=== PATIENT | female | born 1950 | race Caucasian/White ===

== ENCOUNTER 2017-12-06 09:00 | Day surgery (SDC) | payer MEDICARE, SELFPAY ==
[2017-12-06] VITALS (12 sets, daily range): BP systolic 106–161; BP diastolic 49–68; PULSE 55–95; RESP 14–18; TEMP 36.3–36.7; O2SAT 93–100; BMI 29.2
[2017-12-06 09:42] LABS: POC Glucose,Bedside 198 mg/dL
--- NOTE | 2017-12-06 10:16 | [facility].SCOPE ---
- Procedure: Date: 12/06/17 Procedure Performed:: Total colonoscopy to ileum with biopsies Indications:: Patient is a 67-year-old white female referred by Dr. Jefe Ruiz for colonoscopy. She had undergone colonoscopy [address] Olea in 1996. Patient describes early postprandial defecation. She states that food goes right through me . She has cramping abdominal pain. This is been present for several months. Denies any bleeding. Performing Provider:: Jaime Lindquist MD Referring Provider:: Jefe Ruiz MD Sedation:: Versed 6 mg, fentanyl 100 mcg. Procedure:: Consent was obtained and patient was taken to same-day surgery endoscopy procedure room. She was positioned in a lateral decubitus position. Adequate intravenous sedation was achieved with titration of Versed and fentanyl. Variable stiffness of the colonoscope was inserted via the anus and advanced at the C. Colonic preparation was good. Appendiceal orifice and ileocecal valve were clearly identified. Colonoscope was advanced into the terminal ileum which appeared grossly normal. Several random terminal ileum biopsies were obtained using cold biopsy forceps. Colonoscope was withdrawn through the colon with careful surveillance. She did have some degree of pandiverticulosis. Random colon biopsies were obtained differentiating right and left to rule out microscopic colitis. There was a possible extremely diminutive polyp near the rectosigmoid region. However this appeared to disappear and with repeated surveillance proximally and distally of the area no polyp could be identified. Within the rectum retroflexion was performed which revealed minor internal hemorrhoids. Colonoscope was withdrawn. Findings:: Pandiverticulosis Internal hemorrhoids Specimens:: Random colon Terminal ileum Recommendations:: Follow-up on pathology. No clear etiology for her change in bowel habits. May be functional pending pathology. Recommend repeat colonoscopy 5-10 years. Complications:: None Estimated blood obtained (mL): 3
== END 2017-12-06 10:48 | disposition home or self-care (01) ==
LOC: OUTP 09:03
PROVIDERS: Family Provider Internal Medicine Adolescent Medicine; PCP Internal Medicine; Visit Provider Surgery
PROC: 0DJD8ZZ Inspection of Lower Intestinal Tract, Via Natural or Artificial Opening Endoscopic (ICD-10-PCS; principal; 2017-12-06 09:30)
DX: K57.30 Diverticulosis of large intestine without perforation or abscess without bleeding; K64.8 Other hemorrhoids; E11.8 Type 2 diabetes mellitus with unspecified complications
CPT/HCPCS: 45380; 82962; 88305; 99152; 99153

== ENCOUNTER → 2018-02-09 09:00 | Outpatient (CLI) | payer MEDICARE, SELFPAY ==
--- NOTE | 2018-02-09 09:12 | NVE_ITS ---
Venous Exam Indications: 729.5 Pain in limb. 782.3 Edema. IMPRESSIONS 1. Normal study. 2. No evidence of deep or superficial vein thrombosis involving the right lower extremity 3. No evidence of deep or superficial vein thrombosis involving the left lower extremity Complete lower extremity venous duplex evaluation. Doppler flow study including spectral analysis, color and beebe scale imaging. Location: Vascular laboratory. Patient status: Outpatient. Tables: Venous flow and imaging: + +-------+ + Location Overall Flow properties + +-------+ + Right common femoral Patent Normal phasicity; spontaneous; normal augmentation; compressible + +-------+ + Right saphenofemoral junction Patent Compressible + +-------+ + Right profunda femoral Patent Compressible + +-------+ + Right femoral Patent Normal phasicity; spontaneous; normal augmentation; compressible; no reflux + +-------+ + Right greater saphenous Patent Normal phasicity; spontaneous; normal augmentation; compressible + +-------+ + Right popliteal Patent Normal phasicity; spontaneous; normal augmentation; compressible + +-------+ + Right posterior tibial Patent Compressible + +-------+ + Right peroneal Patent Compressible + +-------+ + Right gastrocnemius Patent Compressible + +-------+ + Right soleal Patent Compressible + +-------+ + Left common femoral Patent Normal phasicity; spontaneous; normal augmentation; compressible + +-------+ + Left saphenofemoral junction Patent Compressible + +-------+ + Left profunda femoral Patent Compressible + +-------+ + Left femoral Patent Normal phasicity; spontaneous; normal augmentation; compressible + +-------+ + Left greater saphenous Patent Normal phasicity; spontaneous; normal augmentation; compressible + +-------+ + Left popliteal Patent Normal phasicity; spontaneous; normal augmentation
== END ==
PROVIDERS: Family Provider Internal Medicine Adolescent Medicine; PCP Internal Medicine; Visit Provider Internal Medicine
DX: R60.0 Localized edema (principal); I70.223 Atherosclerosis of native arteries of extremities with rest pain, bilateral legs
CPT/HCPCS: 93970

== ENCOUNTER 2018-12-28 14:26 | Inpatient (IN) ==
[2018-12-28 14:45] LABS: Microscopic, Urine URINE MICROSCOPIC (MICROSCOPIC)
--- NOTE | 2018-12-28 14:46 | Emergency Department Note ---
ED Disposition Clinical Impression: Closed right hip fracture Disposition: Admitted As Inpatient Condition on Discharge: Good Referrals: Jefe Ruiz [Primary Care Provider] - Time of Disposition: 15:58 - Critical Care Critical Care Time: No Attestation: On 12/28/18, the high probability of a clinically significant, sudden or life threatening deterioration of the following system(s) required my full and direct attention, intervention and personal management. The time I documented below is in addition to time spent performing reported procedures but includes the following listed in this critical care notation. Medical Decision Making - Medical Records Medical records reviewed: Yes: I reviewed the patient's medical records. - Carlos Inquiry Pt receiving controlled substance: No Carlos was queried for this patient: No Vital Signs: 12/28/18 14:26 12/28/18 15:56 Temperature 97.7 F Temperature Source Oral Pulse Rate [Left Radial] 96 H 94 H Respiratory Rate 16 16 Blood Pressure [Right Arm] 148/87 H 141/77 H Blood Pressure Mean [Right Arm] 107 98 Blood Pressure Source [Right Arm] Automatic Cuff Automatic Cuff Blood Pressure Position [Right Arm] Supine Sitting 02 Sat by Pulse Oximetry 95 94 L Oxygen Delivery Method Room Air Nasal Cannula Oxygen Flow Rate (LPM) 2 - Lab Data Lab Results 12/28/18 14:30: WBC 6.5, RBC 4.67, Hgb 14.6, Hct 44.2, MCV 94.7, MCH 31.3 H, MCHC 33.1, RDW 13.0, Plt Count 201, MPV 7.5, Neut % (Auto) 55.9, Lymph % (Auto) 30.4, [place] % (Auto) 5.3, Eos % (Auto) 7.0, Baso % (Auto) 1.4, Neut # (Auto) 3.7, Lymph # (Auto) 2.0, [place] # (Auto) 0.3, Eos # (Auto) 0.5 H, Baso # (Auto) 0.1 12/28/18 14:30: Sodium 137, Potassium 4.2, Chloride 99, Carbon Dioxide 25, Anion Gap 17.2 H, BUN 29 H, Creatinine 1.19 H, Estimated Creat Clear 59, Estimated GFR 45 L, Est GFR ( Amer) 55 L, Glucose 258 H, Calcium 9.4, Total Bilirubin 0.7, AST 230 H, ALT 328 H*, Alkaline Phosphatase 137 H, Total Protein 7.6, Albumin 4.0, Globulin 3.6 H, Albumin/Globulin Ratio 1.1 12/28/18 14:30: Urine Color Yellow, Urine Appearance Clear, Urine pH 6.0, Ur Specific [place] 1.025, Urine Protein Negative, Urine Glucose (UA) Trace, Urine Ketones Negative, Urine Blood Trace-l, Urine Nitrate Negative, Urine Bilirubin Negative, Urine Urobilinogen 0.2, Ur Leukocyte Esterase Negative Result diagrams: 12/28/18 14:30 12/28/18 14:30 Orders (Tests/Meds): ED MEDICATIONS Discontinued Medications Generic Name Dose Route Start Last Admin Trade Name Freq PRN Reason Stop Dose Admin Hydromorphone HCl 0.5 mg 12/28/18 15:28 12/28/18 15:29 Dilaudid 2mg/Ml Syringe IV 12/28/18 15:29 0.5 mg ONCE ONE Administration Sodium Chloride 500 mls @ 999 mls/hr 12/28/18 14:45 12/28/18 14:48 Sod Chlor 0.9% 1000ml Bag IV 12/28/18 15:15 Not Given .Q31M KAREY Sodium Chloride 1,000 mls @ 999 mls/hr 12/28/18 14:45 12/28/18 14:46 Sod Chlor 0.9% 1000ml Bag IV 12/28/18 15:45 999 mls/hr .Q1H1M KAREY Administration Morphine Sulfate 4 mg 12/28/18 14:47 12/28/18 14:48 Morphine 4mg/Ml Syringe IV 12/28/18 14:48 4 mg ONCE ONE Administration Ondansetron HCl 4 mg 12/28/18 14:44 12/28/18 14:45 Zofran 4mg/2ml Vial IV 12/28/18 14:45 4 mg ONCE ONE Administration ORDERS Category Date Time Status Urinalysis and Microscopic Stat Lab 12/28/18 14:30 Results Fall HPI - General Chief Complaint: Fall Stated Complaint: Fall Time Seen by Provider: 12/28/18 14:43 Mode of Arrival: Family Vehicle Source of Information: Patient Limitations: Physical Limitations Description of Symptoms (Recalled from ER Triage Doc. by RN): Pt states she was walking in her daughters front door when her dog jumped on her and she fell on her right leg. c/o pain in thigh area, denies hitting her head or any other injuries at this time. - History of Present Illness HPI Narrative: severe r hip pain, thigh pain. Brought in pov with obvious fracture - Related Data Home Medications Medication Instructions Recorded Confirmed lisinopril 40 mg tablet 40 mg PO QDAY 11/25/17 12/28/18 lovastatin 20 mg tablet 20 mg PO QDAY 11/25/17 12/28/18 sitagliptin 100 mg tablet 100 mg PO QDAY 11/25/17 12/28/18 Previous Rx's Medication Instructions Recorded metoprolol tartrate 25 mg tablet 25 mg PO BID #60 tab 04/28/18 Allergies Allergy/AdvReac Type Severity Reaction Status Date / Time ciprofloxacin [CIPROFLOXACIN] Allergy Mild Verified 07/19/18 20:50 [facility] History - Hepatitis A Screen Drug use history?: No High risk sexual behaviors?: No History of sexually transmitted infection?: No Currently employed?: No Childcare worker?: No Do you have indoor plumbing?: Yes Do you have electricity?: Yes Attestation statement:: This patient has been screened for Hepatitis A risk factors. I have reviewed the patient's past medical history: Yes Medical History: Reports:: Diabetes Mellitus Type 2, Hyperlipidemia, Hypertension Denies:: Diabetes Mellitus Type 1, Internal Pacemaker, Lung Disease, Seizures Laterality Cases: Left: Other Other Surgeries: Yes: Colonoscopy. No: Pacemaker - Social History Smoking Status: Never smoker Alcohol Intake: never Alcohol Intake Frequency:: other Substance Use Type: denies use Occupational Status: retired - Psychiatric History Expresses thoughts of harming self/others: None Suicide Plan Description: No Plan Family Hx:: Cancer ROS Obtained: Yes All systems reviewed & no additional complaints - Constitutional Constitutional: Denies chills, Denies fever(s) - Eyes Eyes: Denies change in vision - ENT Ears, Nose, Mouth, and Throat: Denies neck pain - Cardiovascular Cardiovascular: Denies chest pain, Denies chest pain at rest, Denies diaphoresis, Denies dyspnea - Respiratory Respiratory: Yes system reviewed and no additional complaints, except as docu, No chest congestion, No cough - Gastrointestinal Gastrointestingal: Denies: system reviewed and no additional complaints, except as docu, abdominal pain - Musculoskeletal Musculoskeletal: Reports joint pain, Reports deformity, Reports muscle cramps, Reports muscle aches - Integumentary/Breasts Skin/Breast: Denies rash - Neurologic Neurologic: Reports system reviewed and no additional complaints, except as docu , Denies behavioral changes, Denies confusion, Denies focal weakness - Hematologic/Lymphatic Henatologic/Lymphatic: Denies easy bleeding, Denies easy bruising Physical Exam - General General appearance: alert, in no apparent distress - Head Head exam: atraumatic, normocephalic, normal inspection - Eye Eye exam: Present: normal appearance, PERRL, EOMI - ENT ENT exam: Present: normal exam, normal oropharynx, mucous membranes moist, TM's normal bilaterally, normal external ear exam - Neck Neck exam: Present: normal inspection, full ROM, trachea midline. Absent: meningismus, lymphadenopathy - Respiratory Respiratory exam: Present: normal lung sounds bilaterally. Absent: respiratory distress - Cardiovascular Cardiovascular exam: Present: regular rate, normal rhythm. Absent: JVD - Abdominal Exam Abdominal exam: Present: soft, normal bowel sounds. Absent: distention, tenderness, guarding - Extremities Exam Extremities exam: Present: tenderness, normal capillary refill, other (R hip pain, no significant hematoma, there is shortening and rotation). Absent: normal inspection, full ROM - Neurological Exam Neurological exam: Present: alert, oriented X3 - Psychiatric Psychiatric exam: Present: normal affect, normal mood - Skin Skin exam: Present: warm, dry, intact, normal color
[2018-12-28 14:49] LABS: Basophils # 0.1 K/mm3 (0-0.2); Basophils % 1.4 % (0.1-2.0); Eosinophils # 0.5 K/mm3 (0.0-0.4); Hematocrit 44.2 % (37.0-47.0); Hemoglobin 14.6 g/dL (12.2-16.2); Lymphocytes % 30.4 % (10-50); Mean Corpuscular HGB Conc 33.1 g/dL (31.8-35.4); Mean Corpuscular Hemoglobin 31.3 pg (27.0-31.2); Mean Corpuscular Volume 94.7 fl (81-99); Mean Platelet Volume 7.5 fl (7.4-10.4); Monocytes # 0.3 K/mm3 (0.1-1.0); Monocytes % 5.3 % (1.7-9.3); Neutrophils # 3.7 K/mm3 (1.8-7.8); Neutrophils % 55.9 % (37.0-80.0); Platelet Count 201 K/mm3 (142-424); Red Blood Count 4.67 M/mm3 (4.20-5.40); White Blood Count 6.5 K/mm3 (4.8-10.8)
[2018-12-28 15:01] LABS: Appearance,Urine CLEAR (Clear); Bilirubin,Urine Negative (Negative); Blood, Urine TRACE-L (Negative); Color,Urine YELLOW (Yellow); Glucose,Urine (UA) TRACE (Negative); Ketones,Urine Negative (Negative); Leukocyte Esterase,Urine Negative (Negative); Protein,Urine Negative (Negative); Specific Gravity, Urine 1.025 (1.005-1.030); Urobilinogen,Urine 0.2 EU/dl (0.2)
[2018-12-28 15:41] LABS: Albumin/Globulin Ratio 1.1 (1.1-1.8); Anion Gap 17.2 mEq/L (5-15); Bilirubin,Total 0.7 mg/dL (0.2-1.0); Calcium 9.4 mg/dL (8.5-10.1); Globulin 3.6 gm/dl (1.3-3.2); Potassium 4.2 mmoL/L (3.5-5.1); Total Protein,Serum 7.6 gm/dL (6.4-8.2)
[2018-12-28 15:59] LABS: Bacteria,Urine 1+ /lpf; RBC,Urine Occasional #/hpf (0-3); Squamous Epithelial Cell,Urine Occasional #/hpf (0-5)
[2018-12-29 06:23] LABS: Basophils # 0.1 K/mm3 (0-0.2); Basophils % 0.9 % (0.1-2.0); Eosinophils # 0.3 K/mm3 (0.0-0.4); Eosinophils % 4.5 % (0.1-12.0); Hematocrit 34.9 % (37.0-47.0); Lymphocytes # 1.7 K/mm3 (0.7-4.5); Lymphocytes % 22.8 % (10-50); Mean Corpuscular HGB Conc 32.1 g/dL (31.8-35.4); Mean Corpuscular Hemoglobin 31.2 pg (27.0-31.2); Mean Corpuscular Volume 97.2 fl (81-99); Mean Platelet Volume 7.2 fl (7.4-10.4); Monocytes # 0.6 K/mm3 (0.1-1.0); Neutrophils # 4.9 K/mm3 (1.8-7.8); Neutrophils % 63.8 % (37.0-80.0); Platelet Count 200 K/mm3 (142-424); Red Blood Count 3.59 M/mm3 (4.20-5.40); Red Cell Distribution Width 13.1 % (11.5-17.5); White Blood Count 7.6 K/mm3 (4.8-10.8)
[2018-12-29 06:31] LABS: Anion Gap 11.9 mEq/L (5-15); Potassium 4.9 mmoL/L (3.5-5.1)
[2018-12-29 07:00] LABS: Hemoglobin 11.3 g/dL (12.2-16.2)
[2018-12-29 07:16] LABS: Calcium 8.5 mg/dL (8.5-10.1)
--- NOTE | 2018-12-29 08:11 | Pharmacy Consult Notes ---
[facility] Pharmacy VTE Monitoring - Patient Demographics Admission date: 12/28/18 Report Date: 12/29/18 Time: 08:11 Allergies/Adverse Reactions: Patient Allergies ciprofloxacin [CIPROFLOXACIN] Allergy (Mild, Verified 07/19/18 20:50) Height: 1.6 m Weight: 74.049 kg Patient Problems: Current Active Problems Closed right hip fracture (Acute) - VTE Risk Labs: VTE Related Lab Results Hgb 11.3 g/dL (12.2-16.2) L D 12/29/18 06:03 Hct 34.9 % (37.0-47.0) L 12/29/18 06:03 Plt Count 200 K/mm3 (142-424) 12/29/18 06:03 BUN 35 mg/dL (7-18) H 12/29/18 06:03 Creatinine 1.56 mg/dL (0.55-1.02) H D 12/29/18 06:03 Estimated Creat Clear 41 mL/min (50-200) 12/29/18 06:03 Was VTE Risk Assessment Performed: Yes VTE Score: 4 VTE Risk Level: Low Risk Clinical Trial Participant: No - Prophylaxis VTE Prophylaxis Ordered?: Yes Types of VTE Prophylaxis: TEDS Knee High
--- NOTE | 2018-12-29 08:24 | History & Physical Report ---
*Admission Date: 12/28/18 *Chief complaint: hip fracture *History of present illness: Ms. Vann is a 68-year-old female with history of diabetes, hypertension, hyperlipidemia who presented to the ER after a fall at home. Patient states that last night she tripped over her dog at home falling down on her right side with acute onset of pain and inability to get up and bear weight. She was brought to the ER for further assessment and noticed to have a right sided comminuted intertrochanteric femur fracture. Orthopedics was consulted with plan for surgery today. Patient was admitted to medicine for further management of her chronic conditions and risk stratification prior to surgery. Patient denies no use of insulin. No chronic kidney disease. No history of stroke or heart attack. Able to perform housework and ambulate independently prior to her fall. Able to walk at least 2 flights of stairs without shortness of breath or chest pain. EKG obtained in the ER with no concern for wave abnormalities or ischemia. Denies nausea, shortness of breath, hitting her head, confusion. [facility] History I have reviewed the patient's past medical history: Yes Medical History: Reports:: Diabetes Mellitus Type 2, Hyperlipidemia, Hypertensio n Denies:: Diabetes Mellitus Type 1, Internal Pacemaker, Lung Disease, Seizures *Have you ever received a pneumonia vaccine?: No *Have you received a flu vaccine this season?: Yes Laterality Cases: Left: Other Other Surgeries: Yes: Colonoscopy. No: Pacemaker Amputation: No Fractures: No - *Social History Educational Level: Attended Grade School Smoking Status: Never smoker Alcohol Intake: never Alcohol Intake Frequency:: other Substance Use Type: denies use *Occupational Status:: disabled Housing: house Household Members: children *Travel in the last 8 weeks: None - Psychiatric History Expresses thoughts of harming self/others: None Suicide Plan Description: No Plan Family Hx:: No significant family history, Cancer Review of Systems - Review of Systems Review of systems:: pertinent systems reviewed and negative unless documented below - *Neurologic Denies behavioral changes, Denies confusion, Denies localized weakness Meds Home Medications Medication Instructions Recorded Confirmed Type lisinopril 40 mg tablet 40 mg PO DAILY 11/25/17 12/29/18 History lovastatin 20 mg tablet 20 mg PO HS 11/25/17 12/29/18 History Duloxetine HCl [Cymbalta 30mg 30 mg PO DAILY 12/29/18 12/29/18 History capsule] Allergies Allergy/AdvReac Type Severity Reaction Status Date / Time ciprofloxacin [CIPROFLOXACIN] Allergy Mild Verified 07/19/18 20:50 Exam Vital signs and Labs for Last 24 Hours: Temp Pulse Resp BP Pulse Ox 98.4 F 73 18 105/68 L 94 L 12/29/18 07:40 12/29/18 07:40 12/29/18 07:40 12/29/18 07:40 12/29/18 07:40 Laboratory Results - last 24 hr 12/28/18 14:30: WBC 6.5, RBC 4.67, Hgb 14.6, Hct 44.2, MCV 94.7, MCH 31.3 H, MCHC 33.1, RDW 13.0, Plt Count 201, MPV 7.5, Neut % (Auto) 55.9, Lymph % (Auto) 30.4, [place] % (Auto) 5.3, Eos % (Auto) 7.0, Baso % (Auto) 1.4, Neut # (Auto) 3.7, Lymph # (Auto) 2.0, [place] # (Auto) 0.3, Eos # (Auto) 0.5 H, Baso # (Auto) 0.1 12/28/18 14:30: Sodium 137, Potassium 4.2, Chloride 99, Carbon Dioxide 25, Anion Gap 17.2 H, BUN 29 H, Creatinine 1.19 H, Estimated Creat Clear 59, Estimated GFR 45 L, Est GFR ( Amer) 55 L, Glucose 258 H, Calcium 9.4, Total Bilirubin 0.7, AST 230 H, ALT 328 H*, Alkaline Phosphatase 137 H, Total Protein 7.6, Albumin 4.0, Globulin 3.6 H, Albumin/Globulin Ratio 1.1 12/28/18 14:30: Urine Color Yellow, Urine Appearance Clear, Urine pH 6.0, Ur Specific [place] 1.025, Urine Protein Negative, Urine Glucose (UA) Trace, Urine Ketones Negative, Urine Blood Trace-l, Urine Nitrate Negative, Urine Bilirubin Negative, Urine Urobilinogen 0.2, Ur Leukocyte Esterase Negative, Urine RBC Occasional, Urine WBC None, Ur Squamous Epith Cells Occasional, Urine Bacteria 1+ 12/28/18 20:08: POC Glucose 280 H 12/29/18 05:45: POC Glucose 221 H 12/29/18 06:03: WBC 7.6, RBC 3.59 L, Hgb 11.3 L D, Hct 34.9 L, MCV 97.2, MCH 31.2, MCHC 32.1, RDW 13.1, Plt Count 200, MPV 7.2 L, Neut % (Auto) 63.8, Lymph % (Auto) 22.8, [place] % (Auto) 8.0, Eos % (Auto) 4.5, Baso % (Auto) 0.9, Neut # (Auto) 4.9, Lymph # (Auto) 1.7, [place] # (Auto) 0.6, Eos # (Auto) 0.3, Baso # (Auto) 0.1 12/29/18 06:03: Sodium 136, Potassium 4.9, Chloride 103, Carbon Dioxide 26, Anion Gap 11.9, BUN 35 H, Creatinine 1.56 H D, Estimated Creat Clear 41, Estimated GFR 33 L, Est GFR ( Amer) 40 L D, Glucose 240 H, Calcium 8.5 I & O for Last 24 hours: Intake & Output 12/26/18 12/27/18 12/28/18 12/29/18 23:59 23:59 23:59 23:59 Intake Total 2170 / 2170 50 / 50 Output Total 200 / 200 Balance 1969 / 1969 50 / 50 Weight 74.049 kg 74.049 kg - *Routine HEENT Exam Head: Present: normocephalic, atraumatic Eye: Present: EOMI, PERRL ENT: Present: mucous membranes moist - *Routine Neck Exam Present: supple, full ROM. Absent: JVD - *Routine Respiratory Exam Present: CTA bilaterally. Absent: prolonged expiratory phase, rales, wheezes, crackles - *Routine Cardiovascular Exam Present: RRR, Normal S1 - *Routine Abdominal Exam Present: soft, normoactive bowel sounds. Absent: tenderness - *Routine Rectal Exam Patient deferred: visual exam - *Routine Exam Patient deferred: external exam - *Routine Extremities Exam Absent: cyanosis, clubbing, edema Comments: Neurovascularly intact in the right lower extremity, able to wiggle toes. Right leg in traction with weight attached to foot, tender to palpation along right side of upper thigh - *Routine Skin Exam Present: intact. Absent: cyanosis - *Routine Neurological Exam Present: alert, oriented X3. 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 (2) Hyperlipidemia Current visit: Yes Status: Acute Qualifiers: Hyperlipidemia type: familial hypercholesterolemia Qualified Code(s): E78.01 - Familial hypercholesterolemia Category: Medical Code(s): E78.5 - Hyperlipidemia, unspecified Restart statin when appropriate, hold the pre-operative setting (3) Hypertension Current visit: Yes Status: Acute Qualifiers: Hypertension type: essential hypertension Qualified Code(s): I10 - Essential (primary) hypertension Category: Medical Code(s): I10 - Essential (primary) hypertension Stable at this time. Will hold PERLITA inhibitor in the perioperative setting. Restart if becomes elevated (4) Closed right hip fracture Current visit: Yes Status: Acute Qualifiers: Encounter type: initial encounter Qualified Code(s): S72.001A - Fracture of unspecified part of neck of right femur, initial encounter for closed fracture Category: Medical Code(s): S72.001A - Fracture of unspecified part of neck of right femur, initial encounter for closed fracture Acute. Being surgically corrected today with orthopedics. Risk stratification: Patient has an RCRI of 0, is able to perform between 4 and 10 METs based on her report with going up flights of stairs and performing housework. At this time she is a low risk candidate for an intermediate risk procedure. No further testing recommended prior to procedure. -We will need postop DVT prophylaxis, per protocol -Hold PERLITA inhibitor and statin in the perioperative setting -Weightbearing status per orthopedic recommendations PT and OT to assess after surgery; unless otherwise strongly suggested, anticipate discharge home tomorrow with family
--- NOTE | 2018-12-29 08:58 | Consult Report ---
*Admission Date: 12/28/18 *Chief complaint: Right hip pain after a mechanical fall *History of present illness: Ms. Vann is a 68-year-old female with history of diabetes, hypertension, hyperlipidemia who presented to the ER after a fall at home. Patient states that she tripped over her dog at home and fell down injuring her right hip yesterday afternoon. Following the fall she developed acute pain in her right hip and was unable to get up and bear weight. She was brought to the ER for further assessment and x-rays showed a displaced, comminuted intertrochanteric femur fracture on the right side. Patient was admitted to medicine for further management. Prior to fall patient was able to perform housework and mobilize independently without any assistive devices. Patient denies any dizziness, head ache, chest or neck pain. She denies loss of consciousness, chest pain and shortness of breath. She lives with her family. This morning she says her pain is well controlled at rest but trying to move the RIGHT leg causes hip pain. Her past medical history includes diabetes, hyperlipidemia and hypertension. No history of any insufficiency fractures in the past. 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 Review of Systems - Review of Systems Review of systems:: pertinent systems reviewed and negative unless documented below - Constitutional Denies anorexia, Denies fever(s) - Eyes Denies blind spots, Denies blurry vision - ENT Denies abnormal hearing - *Cardiovascular Denies chest pain, Denies shortness of breath with activity - *Respiratory Denies chest congestion, Denies cough, Denies shortness of breath - *Gastrointestinal Denies abdominal pain, Denies change in bowel habits - *Musculoskeletal Reports abnormal walking, Reports joint pain - *Neurologic Denies behavioral changes, Denies confusion, Denies localized weakness [facility] History I have reviewed the patient's past medical history: Yes Medical History: Reports:: Diabetes Mellitus Type 2, Hyperlipidemia, Hypert ension Denies:: Diabetes Mellitus Type 1, Internal Pacemaker, Lung Disease, Seizures *Have you ever received a pneumonia vaccine?: No *Have you received a flu vaccine this season?: Yes Laterality Cases: Left: Other Other Surgeries: Yes: Colonoscopy. No: Pacemaker Amputation: No Fractures: No - *Social History Educational Level: Attended Grade School Smoking Status: Never smoker Alcohol Intake: never Alcohol Intake Frequency:: other Substance Use Type: denies use *Occupational Status:: disabled Housing: house Household Members: children *Travel in the last 8 weeks: None - Psychiatric History Expresses thoughts of harming self/others: None Suicide Plan Description: No Plan Family Hx:: No significant family history, Cancer Meds Home Medications Medication Instructions Recorded Confirmed Type lisinopril 40 mg tablet 40 mg PO DAILY 11/25/17 12/29/18 History lovastatin 20 mg tablet 20 mg PO HS 11/25/17 12/29/18 History Duloxetine HCl [Cymbalta 30mg 30 mg PO DAILY 12/29/18 12/29/18 History capsule] Allergies Allergy/AdvReac Type Severity Reaction Status Date / Time ciprofloxacin [CIPROFLOXACIN] Allergy Mild Verified 07/19/18 20:50 Exam Vital signs and Labs for Last 24 Hours: Temp Pulse Resp BP Pulse Ox 98.4 F 73 18 105/68 L 94 L 12/29/18 07:40 12/29/18 07:40 12/29/18 07:40 12/29/18 07:40 12/29/18 07:40 Laboratory Results - last 24 hr 12/28/18 14:30: WBC 6.5, RBC 4.67, Hgb 14.6, Hct 44.2, MCV 94.7, MCH 31.3 H, MCHC 33.1, RDW 13.0, Plt Count 201, MPV 7.5, Neut % (Auto) 55.9, Lymph % (Auto) 30.4, [place] % (Auto) 5.3, Eos % (Auto) 7.0, Baso % (Auto) 1.4, Neut # (Auto) 3.7, Lymph # (Auto) 2.0, [place] # (Auto) 0.3, Eos # (Auto) 0.5 H, Baso # (Auto) 0.1 12/28/18 14:30: Sodium 137, Potassium 4.2, Chloride 99, Carbon Dioxide 25, Anion Gap 17.2 H, BUN 29 H, Creatinine 1.19 H, Estimated Creat Clear 59, Estimated GFR 45 L, Est GFR ( Amer) 55 L, Glucose 258 H, Calcium 9.4, Total Bilirubin 0.7, AST 230 H, ALT 328 H*, Alkaline Phosphatase 137 H, Total Protein 7.6, Albumin 4.0, Globulin 3.6 H, Albumin/Globulin Ratio 1.1 12/28/18 14:30: Urine Color Yellow, Urine Appearance Clear, Urine pH 6.0, Ur Specific [place] 1.025, Urine Protein Negative, Urine Glucose (UA) Trace, Urine Ketones Negative, Urine Blood Trace-l, Urine Nitrate Negative, Urine Bilirubin Negative, Urine Urobilinogen 0.2, Ur Leukocyte Esterase Negative, Urine RBC Occasional, Urine WBC None, Ur Squamous Epith Cells Occasional, Urine Bacteria 1+ 12/28/18 20:08: POC Glucose 280 H 12/29/18 05:45: POC Glucose 221 H 12/29/18 06:03: WBC 7.6, RBC 3.59 L, Hgb 11.3 L D, Hct 34.9 L, MCV 97.2, MCH 31.2, MCHC 32.1, RDW 13.1, Plt Count 200, MPV 7.2 L, Neut % (Auto) 63.8, Lymph % (Auto) 22.8, [place] % (Auto) 8.0, Eos % (Auto) 4.5, Baso % (Auto) 0.9, Neut # (Auto) 4.9, Lymph # (Auto) 1.7, [place] # (Auto) 0.6, Eos # (Auto) 0.3, Baso # (Auto) 0.1 12/29/18 06:03: Sodium 136, Potassium 4.9, Chloride 103, Carbon Dioxide 26, Anion Gap 11.9, BUN 35 H, Creatinine 1.56 H D, Estimated Creat Clear 41, Estimated GFR 33 L, Est GFR ( Amer) 40 L D, Glucose 240 H, Calcium 8.5 I & O for Last 24 hours: Intake & Output 12/26/18 12/27/18 12/28/18 12/29/18 11:59 11:59 11:59 11:59 Intake Total 2220 / 2220 Output Total 200 / 200 Balance 2019 Weight 163 lb 4 oz - Constitutional no acute distress, average body habitus, cooperative - *Routine HEENT Exam Head: Present: normocephalic, atraumatic Eye: Present: EOMI ENT: Present: mucous membranes moist - *Routine Respiratory Exam Present: CTA bilaterally. Absent: respiratory distress - *Routine Cardiovascular Exam Present: RRR, Normal S1, Normal S2 - *Routine Abdominal Exam Present: soft, normoactive bowel sounds. Absent: organomegaly - *Routine Extremities Exam Comments: On examination of her lower extremities, the RIGHT leg is in [place] traction; there is shortening of the RIGHT leg and the foot is externally rotated. On examination of the RIGHT hip the skin is normal. No rashes or lesions noted. She is tender over the RIGHT hip. Any attempted movements of the RIGHT hip are pain ful. Thigh and calf are soft and nontender. Dorsalis pedis and posterior tibial pulses are palpable 2+ bilaterally. Sensation is grossly intact. She has good range of foot, ankle and toe movements. Imaging: X-rays of her pelvis AP view, RIGHT hip AP and lateral views and RIGHT femur AP and lateral views are showing a comminuted, displaced, unstable intertrochanteric fracture of the RIGHT proximal femur. Hip joint is fairly well-preserved. Rest of the femoral shaft and distal femur appear normal . No evidence of any metastatic lesions noted. - *Routine Skin Exam Present: intact, warm, normal turgor - *Routine Neurological Exam Present: alert, oriented X3, CN II-XII intact - Routine Psychiatric Exam Present: normal affect, cooperative Results - Labs Result Diagrams: 12/29/18 06:03 12/29/18 06:03 Labs: Abnormal lab results 12/28/18 12/28/18 12/28/18 Range/Units 14:30 14:30 20:08 RBC (4.20-5.40) M/mm3 Hgb (12.2-16.2) g/dL Hct (37.0-47.0) % MCH 31.3 H (27.0-31.2) pg MPV (7.4-10.4) fl Eos # (Auto) 0.5 H (0.0-0.4) K/mm3 Anion Gap 17.2 H (5-15) mEq/L BUN 29 H (7-18) mg/dL Creatinine 1.19 H (0.55-1.02) mg/dL Estimated GFR 45 L (>60) ml/min Est GFR ( Amer) 55 L (>60) ML/MIN Glucose 258 H (74-106) mg/dL POC Glucose 280 H (70-110) AST 230 H (15-37) U/L ALT 328 H* (12-78) U/L Alkaline Phosphatase 137 H (46-116) U/L Globulin 3.6 H (1.3-3.2) gm/dl 12/29/18 12/29/18 12/29/18 Range/Units 05:45 06:03 06:03 RBC 3.59 L (4.20-5.40) M/mm3 Hgb 11.3 L D (12.2-16.2) g/dL Hct 34.9 L (37.0-47.0) % MCH (27.0-31.2) pg MPV 7.2 L (7.4-10.4) fl Eos # (Auto) (0.0-0.4) K/mm3 Anion Gap (5-15) mEq/L BUN 35 H (7-18) mg/dL Creatinine 1.56 H D (0.55-1.02) mg/dL Estimated GFR 33 L (>60) ml/min Est GFR ( Amer) 40 L D (>60) ML/MIN Glucose 240 H (74-106) mg/dL POC Glucose 221 H (70-110) AST (15-37) U/L ALT (12-78) U/L Alkaline Phosphatase (46-116) U/L Globulin (1.3-3.2) gm/dl H & H 12/28/18 12/29/18 Range/Units 14:30 06:03 Hgb 14.6 11.3 L D (12.2-16.2) g/dL Hct 44.2 34.9 L (37.0-47.0) % All other labs normal. Assessment and Plan (1) Closed right hip fracture Current visit: Yes Status: Acute Qualifiers: Encounter type: initial encounter Qualified Code(s): S72.001A - Fracture of unspecified part of neck of right femur, initial encounter for closed fracture Category: Medical Code(s): S72.001A - Fracture of unspecified part of neck of right femur, initial encounter for closed fracture - Assessment and plan all Dx Assessment and Plan for all problems:: I have reviewed the clinical and imaging findings with the patient. I have discussed the diagnosis and management options in detail including both nonsurgical and surgical. I have recommended surgical remediation in the form of a femoral nailing (cephalo-medullary nailing). I explained the procedure, risks and benefits, alternatives and the expected postoperative course and outcome. I explained to the patient and her family the type of the fracture and the proposed surgical procedure using copies of the x-rays, pictures from the Internet and drawings. The complications discussed include but are not limited to infection, bleeding, injury to nerves and blood vessels, DVT, PE, screw cut- out/implant failure, loss of fixation, nonunion, malunion/malrotation, osteonecrosis of the femoral head, femoral shaft fracture, painful hardware, heterotopic ossification, stiffness, weakness, incomplete relief of pain, incomplete return of function or motion and the likely need for further surgery in future, and anesthetic/medical complications including heart attack, stroke, transfusion reaction or . We discussed how any of these events can be devastating. I've explained that the patient is at a significant surgical risk due to her age, cardiac and other medical issues, and fragility of the bone. Family and patient seemed to understand and accept these risks. We have discussed nonsurgical alternatives as well. The nonoperative management would essentially consist of prolonged bed rest and traction (skeletal/skin) in bed and pain medication and has exceptionally poor outcome. This could result in n onunion and malunion of the fracture and almost certainly, the patient has a very high risk of decubitus ulcers, UTI, respiratory tract infections, DVT/PE and other complications from being bedridden. I have explained to them that the standard of care for this sort of injuries is surgical throughout the country unless the patient is very ill for surgical management. We also discussed the postoperative course including the rehab and physical therapy required. She was fairly active and living herself prior to the injury but may need short-term placement in a half-way facility for rehab after surgery. All their questions were answered and they verbalized a good understanding. Patient is cleared for surgery by Dr. Chow's team. Well also obtain a preoperative anesthetic evaluation. The limb was marked appropriately and initialed by me. The preoperative recommendations include- Type and screen Continue nothing by mouth Continue IV fluids Analgesia as needed Consent patient for a cephalo-medullary nailing RIGHT hip. Order 2 g of IV Ancef for preoperative prophylaxis to start half an hour before surgery I am planning to take her for surgery at the earliest opportunity today. Continue medical management as per Dr. Chow. Thank you for the opportunity to take part in the care of this very pleasant patient.
--- NOTE | 2018-12-29 15:32 | Progress Note ---
[facility] Anesthesia Record Part I Intake, IV Amount: 1,300 Estimated blood loss (mL): 150 Urine output (mL): 500 Blood Products used (#): none Blood Pressure: 128/52 SaO2: 94 Pulse Rate: 77 Respiratory Rate: 14 Temperature: 97.7 F Patient is:: Awake, Stable Stable to PACU at:: 15:30
--- NOTE | 2018-12-29 15:32 | Progress Note ---
[facility] Anesthesia Record Part II Discharge Time: 16:00 Destination: Medical Surgical Department PACU nurse assessment reviewed?: Yes Patient Condition:: Good Anesthesia Complications:: None Swallowing reflex intact?: Yes Cyanosis?: No
--- NOTE | 2018-12-29 15:56 | Operative Note ---
Date of procedure: 12/29/18 Pre-op Diagnosis:: Closed, comminuted, displaced intertrochanteric fracture, right femur Post-op Diagnosis:: Same Procedure performed:: Closed reduction and cephalo-medullary nailing (Ron Gamma nail), right femur Surgeon:: Troy Carmona MD GROUP MANAGING DIRECTOR:: Nabil Nuñez Anesthesia: spinal Estimated blood loss (mL): 150 Clinical Note:: Patient is a 68-year-old female who sustained a mechanical fall resulting in an intertrochanteric fracture of her right femoral neck. Following evaluation in the emergency room where x-ray showed a displaced, comminuted and unstable intertrochanteric fracture of her RIGHT proximal femur, she was admitted for further management. After evaluating her, I have discussed the diagnosis and ma nagement options in detail including nonsurgical and surgical, with the patient and her family. Prior to the injury patient was active and mobile independently. She lives with her family. After a detailed discussion with the patient and her family regarding the management options, a decision was made to fix the fracture internally with a cephalo-medullary nail. I have discussed the procedure, risks and benefits, alternatives, postoperative recovery and rehabilitation and the expected outcomes. The complications discussed include but are not limited to DVT, PE, infection, bleeding, injury to nerves and blood vessels, screw cut- out/implant failure, loss of fixation, nonunion, malunion/malrotation, osteonecrosis of the femoral head, femoral shaft fracture, painful hardware, heterotopic ossification, stiffness, weakness, incomplete relief of pain, incomplete return of function or motion and the likely need for further surgery in future, and anesthetic/medical complications including heart attack, stroke, transfusion reaction or . The patient and her family wished to proceed with the surgical remediation. Consent form was reviewed and signed by me. The limb was appropriately marked and initialed by me. Following appropriate preoperative workup and medical clearance, she was brought to the operating room for surgery. The surgery is indicated to reduce and stabilize the fracture, relieve pain and improve function. Please refer to my office note for full details. Operative findings:: Comminuted, displaced and unstable intertrochanteric fracture RIGHT proximal femur as noted on the preoperative x-rays. The fracture is well reduced with closed manipulation prior to fixation. Bone quality is good. Operative note:: Following appropriate preoperative workup and medical clearance, patient was brought to the operating room and a spinal anesthesia was administered. Patient was then positioned supine on the fracture table and all the bony prominences were appropriately padded. The RIGHT foot was secured in the footplate and the footplate was attached to the fracture table. The LEFT leg was placed out of the way in a leg [place]. Under fluoroscopic guidance the fracture was reduced by traction and satisfactory reduction was obtained. The reduction was confirmed on both AP and lateral views. The RIGHT hip and thigh were then prepped and draped in the usual sterile fashion. Administration of prophylactic antibiotics was confirmed with the anesthetic team (2 g of IV Ancef was administered). A preprocedure timeout was performed as per the hospital protocol. After marking the level of the greater trochanter on the skin under fluoroscopy, a skin incision was made proximal to the greater trochanter in line with the femoral shaft. The dissection was then carried through the subcutaneous tissue. The tensor fascia muscle was split in line with the fibers. This provided access to the tip of the greater trochanter. Under fluoroscopic guidance a guidewire was placed at the tip of the greater trochanter, the position was confirmed on both fluoroscopic views and advanced into the proximal femur. The proximal segment w as then reamed over the guidewire and the guidewire was exchanged for a ball- tipped guidewire which was advanced into the distal femur. The position of the guidewire was confirmed in both AP and lateral views. Then sequential reaming was performed over the guidewire up to 12.5 mm reamer. The required nail length was measured. A 125 degree angle, 11 mm diameter, long (360 mm) RIGHT Ron Gamma 3 nail was selected. The selected nail was attached to the proximal jig and the nail was then inserted into the femur under fluoroscopic guidance. After seating the nail to the appropriate level, I proceeded to introduce the lag screw. We used the [employer] computer navigation system for placement of the lag screw. The lag screw sheath assembly was placed through the appropriate hole in the jig and locked in place. Then a 1 inch skin incision was made over the lateral thigh at this level. The incision was deepened through soft tissue and the fascia ursula and the muscle was split. The trocar was removed and a guide pin was placed into the femoral head under fluoroscopic control. After confirming satisfactory placement of the guidepin in both AP and lateral fluoroscopic views the length was measured. A 95 mm lag screw was then selected. Drilling was performed over the guidewire for the lag screw. The lag screw was then introduced over the guidewire and advanced to an appropriate le beck. The traction was reduced and fracture site compressed. The lag screw was secured in place with the set screw. The guide pin and sheath were then removed. After final seating of the lag screw the tip apex distance was 12 mm. I then proceeded to perform the distal locking through the dynamic hole- we used the [employer] Gamma nail distal locking jig for this. After appropriately lining the drill sleeve and nail under fluoroscopic guidance, the drill sleeve was placed through the dynamic hole and a 1 cm skin incision was made. Through the drill sleeve the 4.3 mm drill was introduced and the drill hole made for the distal locking screw. The screw length was measured and a 5 mm x 45 mm cortical bone screw was introduced through the dynamic locking hole. The distal and proximal jigs were then removed and fluoroscopic screening was performed in both the AP and lateral views. The reduction and fixation were noted to be satisfactory and stable. Fluoroscopic images were obtained and stored digitally. The wounds were washed out with normal saline and hemostasis was obtained with the diathermy cautery. The wounds were then closed in layers with the 0 Vicryl, 2-0 Vicryl and 4-0 Monocryl subcuticular sutures, Dermabond and Steri-Strips/to the skin. 30 mL of 0.5 percent Marcaine with epinephrine was injected into the skin and subcutaneous tissue around the incisions for postoperative pain relief. Sterile dressings were applied. The foot was taken out of the foot [place] and the opposite leg out of the leg [place] and placed on the table extension. The limb lengths were noted to be equal and there was no rotational malalignment. Dorsalis pedis and posterior tibial pulses were 2+ on both sides. At the end of the procedure, swab, needle and instrument counts were correct according to the scrub team. Patient was then transferred onto the bed. Patient was then transported to the PACU in a stable condition. Patient tolerated the procedure well and there were no immediate complications. Portable x-rays of the hip/femur AP and cross-table lateral views were obtained in the PACU and were noted to be satisfactory. Postoperatively patient will receive 3 further doses of prophylactic antibiotics, DVT prophylaxis as per protocol and IV and oral analgesia as needed. Medical management as per Dr. Kaminski team. Patient can be mobilized on the first postoperative day with a walker, weight bearing on the RIGHT side as tolerated. [place] Gamma 3 long nailing system-125 degree angle, 11 mm diameter, long (360 mm) RIGHT Ron Gamma 3 nail, 10.5 mm x 95 mm lag screw and 5 mm x 45 mm distal locking screw. (Industry physician representative: Salvatore Wesley from [facility]) Condition: stable Disposition: PACU Specimens:: None Complications:: None
--- NOTE | 2018-12-30 00:13 | Discharge Summary ---
General - General Admission date:: 12/28/18 Discharge date: 12/30/18 HPI HPI: Ms. Vann is a 68-year-old female with history of diabetes, hypertension, hyperlipidemia who presented to the ER after a fall at home. Patient states that last night she tripped over her dog at home falling down on her right side with acute onset of pain and inability to get up and bear weight. She was brought to the ER for further assessment and noticed to have a right sided comminuted intertrochanteric femur fracture. Orthopedics was consulted with plan for surgery today. Patient was admitted to medicine for further management of her chronic conditions and risk stratification prior to surgery. Patient denies no use of insulin. No chronic kidney disease. No history of stroke or heart attack. Able to perform housework and ambulate independently prior to her fall. Able to walk at least 2 flights of stairs without shortness of breath or chest pain. EKG obtained in the ER with no concern for wave abnormalities or ischemia. Denies nausea, shortness of breath, hitting her head, confusion. Hospital Course Hospital Course: Patient admitted to [facility] for right hip fracture. Made n.p.o. at midnight. Surgery took patient for surgical fixation. Patient tolerated procedure well with no adverse events. Patient able to bear weight, though painful. Has help at home. Medically managed for her blood pressure, diabetes, cholesterol during admission. Discharged home in stable condition with help from family. Plan for home health physical therapy to come visit her and assess the beginning of this coming week. Discharged on DVT prophylaxis: Lovenox 40mg SQ daily for 2 weeks followed by aspirin 325 for the next 4 weeks (total of 6 weeks therapy) Recommend assessment of patient's outpatient diabetes control as there is no record of her being on medication per pharmacy reconciliation and she had persistent hyperglycemia during admission. Objective Vital signs: Temp Pulse Resp BP Pulse Ox 98.1 F 90 17 119/67 92 L 12/29/18 20:00 12/29/18 20:00 12/29/18 20:00 12/29/18 20:00 12/29/18 20:00 Narrative: - *Routine HEENT Exam Head: Present: normocephalic, atraumatic Eye: Present: EOMI, PERRL ENT: Present: mucous membranes moist - *Routine Neck Exam Present: supple, full ROM. Absent: JVD - *Routine Respiratory Exam Present: CTA bilaterally. Absent: prolonged expiratory phase, rales, wheezes, crackles - *Routine Cardiovascular Exam Present: RRR, grade 3 systolic murmur best heard at left upper sternal border, no gallops or rubs - *Routine Abdominal Exam Present: soft, normoactive bowel sounds. Absent: tenderness - *Routine Rectal Exam Patient deferred: visual exam - *Routine Exam Patient deferred: external exam - *Routine Extremities Exam Absent: cyanosis, clubbing, edema Comments: Neurovascularly intact in the right lower extremity, able to wiggle toes. Surgical incision along right hip clean dry and intact. tender to palpation along right side of upper thigh - *Routine Skin Exam Present: intact. Absent: cyanosis - *Routine Neurological Exam Present: alert, oriented X3. Absent: altered mental status Results Labs on day of discharge: Labs from last 24 hours 12/29/18 12/29/18 12/29/18 08:37 06:03 06:03 WBC 7.6 RBC 3.59 L Hgb 11.3 L D Hct 34.9 L MCV 97.2 MCH 31.2 MCHC 32.1 RDW 13.1 Plt Count 200 MPV 7.2 L Neut % (Auto) 63.8 Lymph % (Auto) 22.8 [place] % (Auto) 8.0 Eos % (Auto) 4.5 Baso % (Auto) 0.9 Neut # (Auto) 4.9 Lymph # (Auto) 1.7 [place] # (Auto) 0.6 Eos # (Auto) 0.3 Baso # (Auto) 0.1 Sodium 136 Potassium 4.9 Chloride 103 Carbon Dioxide 26 Anion Gap 11.9 BUN 35 H Creatinine 1.56 H D Estimated Creat Clear 41 Estimated GFR 33 L Est GFR ( Amer) 40 L D Glucose 240 H POC Glucose Calcium 8.5 Blood Type O Positive Antibody Screen Negative 12/29/18 05:45 WBC RBC Hgb Hct MCV MCH MCHC RDW Plt Count MPV Neut % (Auto) Lymph % (Auto) [place] % (Auto) Eos % (Auto) Baso % (Auto) Neut # (Auto) Lymph # (Auto) [place] # (Auto) Eos # (Auto) Baso # (Auto) Sodium Potassium Chloride Carbon Dioxide Anion Gap BUN Creatinine Estimated Creat Clear Estimated GFR Est GFR ( Amer) Glucose POC Glucose 221 H Calcium Blood Type Antibody Screen DS: Diagnosis - Discharge Diagnosis (1) Closed right hip fracture Status: Acute (2) Hyperglycemia Status: Chronic (3) Hyperlipidemia Status: Chronic (4) Depression Status: Chronic (5) Hypertension Status: Chronic (6) Diabetes Status: Chronic Discharge Plan - Patient Discharge Instructions ACTIVITY: Ambulate as tolerated DIET: continue same diet Patient Instructions: DI for Hip Fracture, DI for Surgical Site Infection - Follow up Plan Follow up with: Jefe Ruiz [Primary Care Provider] - 1 week Troy Carmona MD [Staff Physician] - 2 weeks Disposition: Home Health Service Home Medications: Home Medications Medication Instructions Recorded Confirmed Type lisinopril 40 mg tablet 40 mg PO DAILY 11/25/17 12/29/18 History lovastatin 20 mg tablet 20 mg PO HS 11/25/17 12/29/18 History Duloxetine HCl [Cymbalta 30mg 30 mg PO DAILY 12/29/18 12/29/18 History capsule] Aspirin [Aspirin 325mg Tab] 325 mg PO DAILY 30 Days #30 tablet 12/30/18 Rx Calcium Carb, Citrate/Vit D3 1 each PO DAILY 30 Days #30 12/30/18 Rx [Calcium + D3 ER Tablet] tablet.er Docusate Sodium [Docusate Sodium 100 mg PO BIDP PRN 20 Days #40 12/30/18 Rx 100mg Cap] capsule Enoxaparin Sodium [Lovenox 40 mg SQ DAILY 14 Days #14 syringe 12/30/18 Rx 40mg/0.4mL syringe] Oxycodone HCl [Oxycodone (IR) 10mg 5 mg PO Q6HP PRN 7 Days #14 tab 12/30/18 Rx Tab] Prescriptions/Medication Reconciliation: New Docusate Sodium [Docusate Sodium 100mg Cap] 100 mg PO BIDP PRN 20 Days #40 capsule PRN Reason: Constipation Aspirin [Aspirin 325mg Tab] 325 mg PO DAILY 30 Days #30 tablet Enoxaparin Sodium [Lovenox 40mg/0.4mL syringe] 40 mg SQ DAILY 14 Days #14 syringe Calcium Carb, Citrate/Vit D3 [Calcium + D3 ER Tablet] 1 each PO DAILY 30 Days #30 tablet.er Oxycodone HCl [Oxycodone (IR) 10mg Tab] 5 mg PO Q6HP PRN 7 Days #14 tab PRN Reason: Moderate To Severe Pain Continue lisinopril 40 mg tablet 40 mg PO DAILY lovastatin 20 mg tablet 20 mg PO HS Duloxetine HCl [Cymbalta 30mg capsule] 30 mg PO DAILY
[2018-12-30 07:27] LABS: Basophils % 0.5 % (0.1-2.0); Eosinophils # 0.1 K/mm3 (0.0-0.4); Eosinophils % 1.6 % (0.1-12.0); Hematocrit 25.7 % (37.0-47.0); Hemoglobin 8.7 g/dL (12.2-16.2); Lymphocytes # 1.4 K/mm3 (0.7-4.5); Lymphocytes % 20.7 % (10-50); Mean Corpuscular HGB Conc 33.8 g/dL (31.8-35.4); Mean Corpuscular Hemoglobin 31.4 pg (27.0-31.2); Mean Platelet Volume 7.7 fl (7.4-10.4); Monocytes # 0.5 K/mm3 (0.1-1.0); Monocytes % 7.2 % (1.7-9.3); Neutrophils # 4.9 K/mm3 (1.8-7.8); Platelet Count 146 K/mm3 (142-424); Red Blood Count 2.77 M/mm3 (4.20-5.40); Red Cell Distribution Width 12.8 % (11.5-17.5)
[2018-12-30 07:41] LABS: Albumin Level 2.9 gm/dL (3.4-5.0); Albumin/Globulin Ratio 1.2 (1.1-1.8); Anion Gap 10.7 mEq/L (5-15); Bilirubin,Total 0.6 mg/dL (0.2-1.0); Calcium 8.2 mg/dL (8.5-10.1); Globulin 2.4 gm/dl (1.3-3.2); Potassium 4.7 mmoL/L (3.5-5.1); Total Protein,Serum 5.3 gm/dL (6.4-8.2)
--- NOTE | 2018-12-30 16:17 | Progress Note ---
Subjective Date: 12/30/18 Time: 15:15 Principal diagnosis: Intertrochanteric fracture, right femoral neck Interval history: Patient is status post cephalo-medullary nailing, right hip, post op day #1. Patient is lying down on the bed. She says she is doing well and reports no problems; she reports minimal pain and says it's well-controlled with medication. No history of any nausea or vomiting. No history of any cough, chest pain, shortness of breath or palpitations. She is eating and drinking well. No history of any distal tingling or numbness. PN: Obj Ex Vital signs: Temp Pulse Resp BP Pulse Ox 99.3 F 95 H 17 118/63 92 L 12/30/18 15:22 12/30/18 15:22 12/30/18 15:22 12/30/18 15:22 12/30/18 15:22 Narrative: Laboratory Results - last 24 hr 12/30/18 06:45: WBC 7.0, RBC 2.77 L, Hgb 8.7 L, Hct 25.7 L, MCV 93.0, MCH 31.4 H , MCHC 33.8, RDW 12.8, Plt Count 146 D, MPV 7.7, Neut % (Auto) 70.0, Lymph % (Auto) 20.7, [place] % (Auto) 7.2, Eos % (Auto) 1.6, Baso % (Auto) 0.5, Neut # (Auto) 4.9, Lymph # (Auto) 1.4, [place] # (Auto) 0.5, Eos # (Auto) 0.1, Baso # (Auto) 0.0 12/30/18 06:45: Sodium 132 L, Potassium 4.7, Chloride 100, Carbon Dioxide 26, Anion Gap 10.7, BUN 26 H D, Creatinine 1.00 D, Estimated Creat Clear 64, Estimated GFR 55 L, Est GFR ( Amer) 67 D, Glucose 296 H, Calcium 8.2 L, Total Bilirubin 0.6, AST 89 H D, ALT 157 H D, Alkaline Phosphatase 85, Total Protein 5.3 L D, Albumin 2.9 L, Globulin 2.4, Albumin/Globulin Ratio 1.2 12/30/18 06:51: POC Glucose 319 H* 12/30/18 11:24: POC Glucose 291 H Intake & Output 02/28/19 03/01/19 03/02/19 03/03/19 11:59 11:59 11:59 11:59 Intake Total 2220 / 2220 3958 / 3958 360 / 360 Output Total 200 / 200 1900 / 1900 Balance 2019 360 / 360 Weight 163 lb 4 oz 163 lb 4.001 oz Exam General appearance: alert, active, awake, no acute distress Cardiovascular: regular rate & rhythm, normal peripheral pulses Respiratory: No respiratory distress noted, speaks in full sentences ABD: soft and non tender Neuro: alert, awake, oriented x 3 Psych: normal mood and affect On examination of the lower extremities the limb lengths are equal. Thigh and calf are soft and nontender. On examination of the right the dressings are clean, dry and intact. The dressings are changed by me. There is no soakage of the dressings. The wound looks clean and healthy. No evidence of any infection or other complications is noted. Distal pulses are 2+. Distal sensation is intact to light touch throughout. No motor deficits noted distally. - Urinary Catheter Management Bryan Cath placed during this visit: yes Urethral indwelling: Yes Reason for continuing: Surgical procedure Insertion date: 12/28/18 Insertion time: 15:00 Progress Note: A&P (1) Closed right hip fracture Status: Acute Current Visit: Yes (2) Hyperglycemia Status: Chronic Current Visit: Yes (3) Hyperlipidemia Status: Chronic Current Visit: Yes (4) Depression Status: Chronic Current Visit: Yes (5) Hypertension Status: Chronic Current Visit: Yes (6) Diabetes Status: Chronic Current Visit: Yes Assessment and Plan for All Diagnoses:: I have reviewed the clinical findings and progress with the patient and family. Patient is doing well and reports no problems. She started mobilization weightbearing as tolerated on the right side with the walker and I have advised her to continue the same. Continue DVT prophylaxis. Patient is being discharged home with home health and physical therapy. Recommend DVT prophylaxis for 6 weeks postop- the appropriate agents include Lovenox, Aspirin 325 mg, Xarelto (Rivaroxaban), Eliquis (apixaban) and Coumadin. Also recommend better control of diabetes/blood sugar as it was continuously elevated throughout her admission. Follow-up in my office in 2 weeks time with check x-ray. Please feel free to call our office at [phone] for any orthopaedic questions. Continue medical management as per Dr. Chow.
== END 2018-12-30 16:05 | disposition home health service (06) | DRG 482 ==
LOC: ER 14:26 → 2ND 16:21
PROVIDERS: ADMIT Family Medicine; ATTEND Internal Medicine Adolescent Medicine
CPT/HCPCS: 36415; 71010; 71045; 73502; 73552; 76000; 80048; 80053; 81001; 82962; 85025; 86850; 93005; 96365; 96375; 96376; 97162; 97165; 99284; C1713; C1769; C1776; J2405; P9047

== ENCOUNTER → 2019-01-11 12:03 | Outpatient (CLI) | payer MEDICARE, SELFPAY ==
--- NOTE | 2019-01-11 12:08 | XR_ITS ---
XR hip RT 2-3V w/pelvis HISTORY: Follow-up ORIF of the right hip ITS.REASON: sp right gamma nail ORDERING PHYSICIAN: Troy Carmona MD PATIENT AGE: 68 years COMPARISON: 12/29/2018 FINDINGS: Status post ORIF of the right hip with gamma nail and long intramedullary haroon. The lateral fracture fragment at the greater trochanter appears slightly greater displaced laterally x 7 mm. Gamma nail appears intact. There are slight increased protrusion of the proximal tip of the IM haroon proximally compared to the previous study and may be due to some interval impaction of the fracture fragments as the distal aspect of the haroon is unchanged. Calcification noted along the superior medial aspect of the tip of the IM haroon is increased compared to the previous study. IMPRESSION: Status post ORIF right femoral neck fracture with good alignment as described above. Suspect some mild impaction of the fracture fragments from the previous study. Lateral fracture fragment is slightly displaced laterally on today's exam
--- NOTE | 2019-01-11 12:08 | XR_ITS ---
XR femur RT 2V CLINICAL INDICATION: Follow-up fracture/ORIF ITS.REASON: sp RT gamma nail ORDERING PHYSICIAN: Troy Carmona MD PATIENT AGE: 68 years Comparison: 12/29/2018 FINDINGS: Status post ORIF comminuted intertrochanteric fracture. Gamma nail with long intramedullary haroon is present stabilizing the intertrochanteric fracture the proximal and lateral fracture fragment at the greater trochanteric region is slightly displaced laterally by approximately 7 mm with greater appearing displacement than when compared to the previous exam possibly due to slight difference in degree of rotation. Continued follow-up recommended. The intramedullary ride physician. IMPRESSION: Good alignment status post ORIF right intertrochanteric femoral neck fracture. The greater trochanteric fragment appears slightly displaced laterally more so than when compared to the previous study possibly due to difference in positioning. Follow-up recommended
== END ==
PROVIDERS: PCP Internal Medicine; Visit Provider Orthopaedic Surgery
DX: Z48.89 Encounter for other specified surgical aftercare (principal)
CPT/HCPCS: 73502; 73552

== ENCOUNTER → 2019-02-08 13:49 | Outpatient (CLI) | payer MEDICARE, SELFPAY ==
--- NOTE | 2019-02-08 13:54 | XR_ITS ---
XR hip RT 2-3V w/pelvis HISTORY: ITS.REASON: sp RT gamma nail dos 12/29/18 ORDERING PHYSICIAN: Troy Carmona MD PATIENT AGE: 68 years COMPARISON: 01/11/2019 FINDINGS: There is been insertion of a gamma nail and long intramedullary haroon stabilizing the proximal comminuted femur fracture with intertrochanteric/subtrochanteric component. Increasing ossification is noted along the superior aspect of the intramedullary haroon system with heterotopic bone formation. There is callous formation developing at the fracture site with good alignment. IMPRESSION: 1. Status post ORIF comminuted right subtrochanteric fracture which does show signs of healing with good alignment.
--- NOTE | 2019-02-08 13:54 | XR_ITS ---
XR femur RT 2V CLINICAL INDICATION: Follow-up ORIF femur fracture with long intramedullary haroon insertion. ITS.REASON: sp rt gamma nail dos 12/29/18 ORDERING PHYSICIAN: Troy Carmona MD PATIENT AGE: 68 years Comparison: 01/11/2019 FINDINGS: There is been insertion of a gamma nail and long intramedullary haroon stabilizing the proximal comminuted femur fracture with intertrochanteric/subtrochanteric component. Increasing ossification is noted along the superior aspect of the intramedullary haroon system with heterotopic bone formation. There is callous formation developing at the fracture site with good alignment. The transverse fracture within the distal aspect of the intramedullary right now is bent with possible nondisplaced fracture of the screw in its mid aspect. IMPRESSION: 1. Status post ORIF comminuted right subtrochanteric fracture which does show signs of healing with good alignment. 2. Transverse screw stabilizing the distal aspect of the intramedullary haroon is now bent with the apex of the bend angulating distally with possible screw fracture
== END ==
PROVIDERS: PCP Internal Medicine; Visit Provider Orthopaedic Surgery
DX: S72.141A Displaced intertrochanteric fracture of right femur, initial encounter for closed fracture (principal); Z09 Encounter for follow-up examination after completed treatment for conditions other than malignant neoplasm
CPT/HCPCS: 73502; 73552

== ENCOUNTER → 2019-02-19 10:40 | Outpatient (CLI) | payer MEDICARE, SELFPAY ==
--- NOTE | 2019-02-19 10:41 | XR_ITS ---
XR DEXA axial skeleton COMPARISON: None HISTORY: Patient postmenopausal, previous right hip fracture with subsequent pinning TECHNIQUE: DEXA scanning lumbar spine left hip and left forearm FINDINGS: Number spine: The average BMD L1-L4 is 1.137 g/sq cm with a T score of 0.4. Left hip: Total BMD is 0.872 g/sq cm the T score -1.1 and the left femoral neck is 0.739 g/sq cm with T score -2.2. Left forearm: The total radius BMD is 0.580 g/sq cm with a T score -1.7. IMPRESSION: Normal study lumbar spine mild osteopenia left hip and left forearm, consider follow-up study in 2 years.
== END ==
PROVIDERS: PCP Internal Medicine; Visit Provider Orthopaedic Surgery
DX: S72.141A Displaced intertrochanteric fracture of right femur, initial encounter for closed fracture (principal); Z78.0 Asymptomatic menopausal state
CPT/HCPCS: 77080

== ENCOUNTER → 2019-04-04 12:44 | Outpatient (CLI) | payer MEDICARE, SELFPAY ==
--- NOTE | 2019-04-04 12:49 | XR_ITS ---
XR hip RT 2-3V w/pelvis HISTORY: Follow-up right hip pinning ITS.REASON: sp RT gamma nail dos 12/29/18 ORDERING PHYSICIAN: Troy Carmona MD PATIENT AGE: 68 years COMPARISON: 02/08/2019 FINDINGS: Gamma nail remains in place inserted and a long intramedullary haroon stabilizing a comminuted right. Trochanteric fracture. Fracture line is somewhat less apparent with prominent callus formation noted about the fracture and with heterotopic ossification superior to the intramedullary haroon. Heterotopic ossification has slightly increased. IMPRESSION: Good alignment healing right intertrochanteric fracture status post ORIF with some increase in heterotopic ossification
--- NOTE | 2019-04-04 12:49 | XR_ITS ---
XR femur RT 2V CLINICAL INDICATION: Follow-up Gamma nail placement ITS.REASON: sp RT gamma nail dos 12/29/18 ORDERING PHYSICIAN: Troy Carmona MD PATIENT AGE: 68 years Comparison: 02/08/2019 FINDINGS: Intramedullary right remains in place. Fracture of the distal transverse screw is noted. Fracture is now displaced with the IM haroon somewhat more distal compared to the previous exam. The tip of the IM haroon is 4.8 cm proximal to the femoral condyle previously 5.7 cm proximal to the femoral condyle. IMPRESSION: There is fracture of the transverse screw within the distal aspect of the IM haroon. The intramedullary haroon appears slightly displaced distally compared to the previous exam now with displacement of the fractured screw.
== END ==
PROVIDERS: PCP Internal Medicine; Visit Provider Orthopaedic Surgery
DX: S72.141A Displaced intertrochanteric fracture of right femur, initial encounter for closed fracture (principal); Z09 Encounter for follow-up examination after completed treatment for conditions other than malignant neoplasm
CPT/HCPCS: 73502; 73552

== ENCOUNTER → 2019-07-10 12:32 | Outpatient (CLI) | payer MEDICARE, SELFPAY ==
--- NOTE | 2019-07-10 12:46 | XR_ITS ---
PROCEDURE: XR HIP RT 2-3V W/PELVIS CLINICAL INDICATION: sp RT gamma nail, dos 12/29/18 Follow-up ORIF COMPARISON: HIPCMRT XR hip RT 2-3V w/pelvis from 02/08/2019 from 04/04/2019 from 04/04/2019 XR FEMUR RT 2V from 07/10/2019 FINDINGS: Gamma nail with long intramedullary haroon once again noted. Healing fractures present involving intertrochanteric region and proximal aspect of the right femur with developing callus formation. Callus formation is increased compared to the previous exam. There is good alignment. There is been no significant change in the fractured distal transverse screw. No further impaction of the haroon. IMPRESSION: There remains good alignment status post ORIF right femoral intertrochanteric and proximal femur fracture with some increasing callus formation. No change in the fracture distal intramedullary haroon screw. Dictated by: Andrews Pryor MD 07/10/2019 15:47 Electronically signed by Andrews Pryor MD in [place] 07/10/2019 15:47
== END ==
PROVIDERS: PCP Internal Medicine; Visit Provider Orthopaedic Surgery
DX: Z09 Encounter for follow-up examination after completed treatment for conditions other than malignant neoplasm (principal)
CPT/HCPCS: 73502; 73552

== ENCOUNTER → 2019-07-24 13:28 | Outpatient (CLI) | payer MEDICARE, SELFPAY ==
--- NOTE | 2019-07-24 13:32 | XR_ITS ---
PROCEDURE: XR SHOULDER LT MIN 2V CLINICAL INDICATION: left shoulder pain COMPARISON: SHOULDCMLT XR shoulder LT min 2V from 01/06/2019 FINDINGS: No acute fracture or dislocation is evident. There are mild osteoarthritic changes of the glenohumeral joint and acromioclavicular joint. There is an old left midshaft clavicular fracture. IMPRESSION: Degenerative changes with old left clavicular fracture. No acute finding Dictated by: Andrews Pryor MD 07/24/2019 14:51 Electronically signed by Andrews Pryor MD in [place] 07/24/2019 14:51
== END ==
PROVIDERS: PCP Internal Medicine; Visit Provider Orthopaedic Surgery
DX: M25.512 Pain in left shoulder (principal)
CPT/HCPCS: 73030

== ENCOUNTER → 2019-11-20 13:32 | Outpatient (CLI) | payer MEDICARE, SELFPAY ==
--- NOTE | 2019-11-20 13:38 | MR_ITS ---
PROCEDURE: MR SHOULDER LT WO CON CLINICAL INDICATION: left shoulder pain/ evaluate for rotator cuff tear COMPARISON: No exams were available for comparison TECHNIQUE: Routine multi planar multisequence exam was performed. FINDINGS: There are full-thickness tears with retraction of the supraspinatus and infraspinatus tendons of the rotator cuff. There is superior subluxation of the humeral head at the glenohumeral joint and the acromial humeral distance is decreased to approximately 1-2 millimeters. A moderate amount of fluid is seen in the subacromial/subdeltoid bursa and in the glenohumeral joint space. There is a small amount of fluid in the acromioclavicular joint space with acromioclavicular joint arthropathy with bony and fibrous overgrowth projecting inferiorly. The there is glenohumeral arthropathy. There is thickening and abnormal signal intensity within the subscapularis tendon compatible with tendinosis/partial substance tearing. The bicipital tendon appears in place. Degeneration of the glenoid labrum is noted and there appears to be a tear of the superior glenoid labrum. IMPRESSION: Full-thickness tears with retraction of the supraspinatus and infraspinatus tendons of rotator cuff. Sub scapularis tendinosis versus partial substance tearing. AC and glenohumeral joint arthropathy with superior subluxation of humeral head and glenohumeral joint. Tear of superior glenoid labrum. Dictated by: Roger Benedict 11/20/2019 15:38 Electronically signed by Roger Benedict in [place] 11/20/2019 15:38
== END ==
PROVIDERS: PCP Internal Medicine; Visit Provider Orthopaedic Surgery
DX: G89.29 Other chronic pain (principal); M25.512 Pain in left shoulder; M75.42 Impingement syndrome of left shoulder
CPT/HCPCS: 73221

== ENCOUNTER → 2020-08-12 12:38 | Outpatient (CLI) | payer MEDICARE, SELFPAY ==
--- NOTE | 2020-08-12 12:43 | XR_ITS ---
PROCEDURE: XR SHOULDER LT MIN 2V CLINICAL INDICATION: left shoulder pain COMPARISON: CR SHOULDCMLT XR shoulder LT min 2V from 01/06/2019 CR XR SHOULDER LT MIN 2V from 07/24/2019 FINDINGS: There is an old fracture of the clavicle at the junction of the mid distal shaft. Mild osteoarthritic changes are present at the glenohumeral joint and acromioclavicular joint. No fracture or dislocation. No lytic or blastic change. Other findings:None. IMPRESSION: Old left-sided clavicular fracture with mild osteoarthritis of the glenohumeral and acromioclavicular joint Dictated by: Andrews Pryor MD 08/12/2020 16:49 Andrews Pryor MD in [place] 08/12/2020 16:49
== END ==
PROVIDERS: PCP Internal Medicine; Visit Provider Orthopaedic Surgery
DX: G89.29 Other chronic pain (principal); M25.512 Pain in left shoulder
CPT/HCPCS: 73030

== ENCOUNTER → 2020-09-05 14:14 | Outpatient (CLI) | payer MEDICARE, SELFPAY ==
--- NOTE | 2020-09-05 14:14 | MR_ITS ---
PROCEDURE: MR SHOULDER LT WO CON CLINICAL INDICATION: evaluate for preop for LT reverse total shoulder, left shoulder pain LT SHOULDER PAIN WITH NO INJURY. LIMITED ROM PRIOR X-RAY 08-12-20 PRIOR MRI 11-20-19 COMPARISON: MR MR SHOULDER LT WO CON from 11/20/2019 CR XR SHOULDER LT MIN 2V from 08/12/2020 TECHNIQUE: Routine multiplanar multi echo sequences are performed without gadolinium enhancement. FINDINGS: There is complete tear of the supraspinatus and infraspinatus tendons with retraction of the musculotendinous fibers. There is tendinopathy/tendinosis of the subscapularis with increased T2 signal distally and edema. The teres minor tendon appears intact. No obvious labral tear. There is superior location of the humeral head with a moderate-sized shoulder joint effusion. Fluid is also present in the sub coracoid region. Fluid is present within the bicipital tendon sheath. Bicipital tendon appears in place. Bone marrow edema involves the humeral head anteriorly. There are osteoarthritic changes of the acromioclavicular joint with severe subacromial stenosis. There are osteoarthritic changes of the glenohumeral joint. IMPRESSION: Complete tears of the supraspinatus and infraspinatus tendons with retraction of the musculotendinous fibers with superior location of the humeral head and severe subacromial stenosis with osteoarthritis of the acromioclavicular and glenohumeral joint with moderate size shoulder joint effusion and subcoracoid bursitis. Overall not significantly changed. Dictated by: Anderws Pryor MD 09/06/2020 16:18 Andrews Pryor MD in [place] 09/06/2020 16:18
== END ==
PROVIDERS: PCP Internal Medicine; Visit Provider Orthopaedic Surgery
DX: G89.29 Other chronic pain (principal); M25.512 Pain in left shoulder
CPT/HCPCS: 73221

== ENCOUNTER → 2020-10-06 16:55 | Outpatient (CLI) | payer MEDICARE, SELFPAY ==
--- NOTE | 2020-10-06 16:59 | XR_ITS ---
PROCEDURE: XR CHEST 2V CLINICAL HISTORY: pre op; hypertension COMPARISON: CR CXR CHEST(2 VIEWS-NOT PORTABLE) from 04/01/2016 CR CXR1 CHEST-PORTABLE from 01/17/2017 CT CTAC CTA-CHEST from 01/18/2017 CR CXR2 XR chest AP from 12/28/2018 FINDINGS: The cardiomediastinal silhouette and pulmonary vascularity are within normal limits. There is evidence of old granulomatous disease. No lobar consolidation or collapse. There is lumbar scoliosis convex left IMPRESSION: No acute findings. Dictated by: Andrews Pryor MD 10/06/2020 17:11 Andrews Pryor MD in [place] 10/06/2020 17:11
== END ==
PROVIDERS: Visit Provider Orthopaedic Surgery
DX: Z01.818 Encounter for other preprocedural examination (principal); M25.512 Pain in left shoulder
CPT/HCPCS: 71046

== ENCOUNTER → 2020-10-08 06:33 | Outpatient (CLI) | payer MEDICARE, SELFPAY ==
--- NOTE | 2020-10-08 06:35 | CA_ITS ---
APPROVED REPORT Exam: Pharmacologic Technologist: Danita Lerner Ht: 5 ft 3 in Wt: 153 lbs BSA: 1.73 m2 HR: 74 bpm BP: 153/69 mmHg Indications: Shortness of Breath Medical History Medications: Lisinopril,,,,, Lovastatin,,,,, Glimepiride,,,,, MuPirocin,,,,, Stress Test Details Test: LEXISCAN HR Resting HR: 75 bpm Max Heart Rate (APMHR): 151 bpm Max HR Achieved: 108 bpm Target HR (85% APMHR): 128 bpm % of APMHR: 71 Recovery HR: 85 bpm BP Resting BP: 153.0/69.0 mmHg Max BP: 153.0/69.0 mmHg Recovery BP: 139.0/65.0 mmHg ECG Clinical Exercise duration: 04:03 min Highest Stage Achieved: Exercise capacity: 1.0 METs Stress ECG Conclusion Resting EKG: Normal sinus rhythm, first degree AV block, early repolarization changes. Symptoms: Mild shortness of air and malaise. No chest pain. Arrhythmias/Ectopy: None ST-T Changes: T wave inversion in inferior leads. Conclusion: Unremarkable Lexiscan stress. Myoview images reported separately. Electronically signed by : Vinay Rinaldi, 10/09/2020 11:02:06
--- NOTE | 2020-10-08 06:35 | CA_ITS ---
APPROVED REPORT EXAM: Comprehensive 2D, Doppler, and color-flow Echocardiogram [employer]ud Mill Tender: Geovanna Linares RVT Ht: 5 ft 3 in Wt: 153lbs BSA: 1.73 BP: 137/70 mmHg Indications: SOA,SURGICAL CLEARANCE,HTN,DM,HLD,RODRÍGUEZ 2D Dimensions LVOT 2.05 cm (M/F) 1.5-2.5 M-Mode Dimensions RVDd 2.08 cm (0.9-2.6) LA Diam 3.98 cm (1.9-4.0) LVDd 4.26 cm (3.5-5.7) Ao Diam 3.13 cm (2.0-3.7) LVDs 2.76 cm (3.5-5.7) IVSd 1.38 cm (0.6-1.1) PWd 0.93 cm (0.6-1.1) EF (Teich) 64.90% FS 35.20% EDV (Teich) 81.30 mL ESV (Teich) 28.50 mL LV Diastology E Decel Time 240.00 (160-240 msec) E/A Ratio 1.0 MED E' 7.80 (< 7 cm/sec) E'/MED E' Ratio 9.51 (>14) LAT E' 9.60 (<10 cm/sec) E/LAT E' Ratio 7.73 (>14) Mitral Valve MV E Max Eugenio. 74.00 (40-130 cm/s) MV A Velocity 77.00 (40-130 cm/s) E/A Ratio 0.97 MV Decel. Time 240.00 (160-240 ms) MV PHT 70.00 ms Pulmonary Valve PV Peak Velocity 103.00 (50-150 cm/s) Left Ventricle Left atrium is mildly enlarged, left ventricle is normal size, mild concentric left ventricular hypertrophy, visually estimated ejection fraction 55% with no regional wall motion abnormality. Grade 1 diastolic dysfunction seen without tissue Doppler evidence of raise left atrial pressure. Right Ventricle Right atrium and right ventricle are normal size and contractility. Aortic Valve Aortic valve is thickened and calcified leaflet chordae display good mobility, there is no aortic stenosis or aortic insufficiency. Mitral Valve Mitral valve is minimally thickened, there is mild mitral regurgitation. Tricuspid Valve Tricuspid valve grossly normal, there is mild tricuspid regurgitation, tricuspid regurgitation jet velocity is inadequate for calculation of the right ventricular systolic pressure. Pulmonic Valve Pulmonic valve is poorly visualized. Great Vessels Aortic root is normal size. Pericardium No significant pericardial effusion noted. Conclusion 1. Mildly enlarged left atrium, normal left ventricular size, mild concentric left ventricular hypertrophy, visually estimated ejection fraction 55% with no regional wall motion abnormality, grade 1 diastolic dysfunction seen without tissue Doppler evidence of raise left atrial pressure. 2. Mild mitral and tricuspid regurgitation. 3. No significant pericardial effusion noted. Electronically signed by : Vinay Rinaldi, 10/09/2020 13:53:57
--- NOTE | 2020-10-08 06:35 | NM_ITS ---
APPROVED REPORT Exam: Nuclear Stress Test Indication: SOB, HTN, DM, High cholesterol, Pre op Patient Location: Outpatient Stress Tech: Danita Lerner NM Tech:Carolina Viramontes, ARRT, RT (R)(N) Ht: 5 ft 5 in Wt: 152 lbs Bra Size: D HR: 74 bpm BP: 153/69 mmHg BSA: 1.76 m2 BMI: 25.2 History: SOB, HTN, DM, High cholesterol, Pre op Procedure: Patient received a 0.4 mg of intravenous Lexiscan, resting heart rate 74 bpm, resting blood pressure 153/69 mmHg, with Lexiscan maximum heart rate achived was 104 bpm which is Less than 85 % of the maximum predicted heart rate and blood pressure was 149/67 mmHg. With Lexiscan, patient denied any complaint of chest pain. Electrocardiogram Resting electrocardiogram showed sinus rhythm, with Lexiscan there is less than 1.[address] segment depression noted from the baseline EKG. The EKG portion of the Lexiscan is nondiagnostic. Cardiac Stress and Resting SPECT Images: Cardiac Stress and Resting SPECT images were obtained using technetium 99m Myoview 32.4 mCi stress and 10.57 mCi at rest. Gated SPECT for analysis of segmental wall motion and calculation of the ejection fraction also done. Cardiac stress and resting SPECT images show uniform myocardial activity without segmental perfusion abnormality, computer derived ejection fraction is over 65% with no regional wall motion abnormality, right ventricle is normal size and contractility. Prone images were also obtained. Conclusion: 1. The EKG portion of the Lexiscan is nondiagnostic. 2. No scintigraphic evidence of reversible ischemia seen, computer derived ejection fraction is over 65% with no regional wall motion abnormality, right ventricle is normal size and contractility. 3. Normal Lexiscan Myoview study. Electronically signed by : Vinay Rinaldi, 10/09/2020 11:10:46
--- NOTE | 2020-10-08 08:33 | HMH.ITSHM ---
Current Home Medications as stated by this patient Shira Vann or support representative. []LOVASTATIN LISINOPRIL GLIMEPIRIDE
== END ==
PROVIDERS: PCP Internal Medicine; Visit Provider Urology
DX: E78.5 Hyperlipidemia, unspecified (principal); I10 Essential (primary) hypertension; Z01.810 Encounter for preprocedural cardiovascular examination; R06.09 Other forms of dyspnea
CPT/HCPCS: 78452; 93017; 93306; A9502; J2785

== ENCOUNTER → 2020-10-10 12:19 | Outpatient (CLI) | payer MEDICARE, SELFPAY ==
[2020-10-10 12:21] LABS: Microscopic, Urine URINE MICROSCOPIC (MICROSCOPIC)
[2020-10-10 13:27] LABS: Chloride 104 mmol/L (98-107); Sodium 140 mmol/L (136-145)
[2020-10-10 13:28] LABS: Potassium 5.6 mmoL/L (3.5-5.1)
[2020-10-10 13:30] LABS: Alanine Aminotransferase 16 U/L (12-78); Albumin Level 4.7 g/dl (3.5-5.0); Albumin/Globulin Ratio 1.6 (1.1-1.8); Alkaline Phosphatase 91 U/L (38-126); Anion Gap 13.6 mEq/L (5-15); Aspartate Amino Transferase 30 U/L (14-36); Bilirubin,Total 0.7 mg/dl (0.2-1.3); Blood Urea Nitrogen 21 mg/dl (7-17); Calcium 10.6 mg/dl (8.4-10.2); Carbon Dioxide 28 mmol/L (22.0-30.0); Estimated Glomerular Filt Rate 62 ml/min (>60); GFR (African American) 75 ML/MIN (>60); Globulin 2.9 g/dL (1.3-3.2); Glucose 135 mg/dl (74-100); Total Protein,Serum 7.6 g/dl (6.3-8.2)
[2020-10-10 13:37] LABS: Basophils # 0.1 K/mm3 (0-0.2); Basophils % 1.2 % (0.1-2.0); Eosinophils # 0.3 K/mm3 (0.0-0.4); Eosinophils % 4.1 % (0.1-12.0); Hematocrit 47.2 % (37.0-47.0); Hemoglobin 15.7 g/dL (12.2-16.2); Lymphocytes # 2.4 K/mm3 (0.7-4.5); Lymphocytes % 33.7 % (10-50); Mean Corpuscular HGB Conc 33.1 g/dL (31.8-35.4); Mean Corpuscular Hemoglobin 32.3 pg (27.0-31.2); Mean Corpuscular Volume 97.6 fl (81-99); Mean Platelet Volume 8.8 fl (7.4-10.4); Monocytes # 0.3 K/mm3 (0.1-1.0); Monocytes % 3.9 % (1.7-9.3); Platelet Count 230 K/mm3 (142-424); Red Blood Count 4.84 M/mm3 (4.20-5.40); Red Cell Distribution Width 12.4 % (11.5-17.5)
[2020-10-10 13:59] LABS: Appearance,Urine CLEAR (Clear); Bilirubin,Urine Negative (Negative); Blood, Urine Negative (Negative); Color,Urine YELLOW (Yellow); Glucose,Urine (UA) Negative (Negative); Ketones,Urine Negative (Negative); Leukocyte Esterase,Urine TRACE (Negative); Nitrate,Urine Negative (Negative); Protein,Urine Negative (Negative); Specific Gravity, Urine 1.015 (1.005-1.030); Urobilinogen,Urine 0.2 EU/dl (0.2)
[2020-10-10 17:36] LABS: Coronavirus 19 IgG Antibody Negative (Negative); Coronavirus 19 IgM Antibody Negative (Negative)
== END ==
PROVIDERS: Visit Provider Orthopaedic Surgery
DX: Z01.818 Encounter for other preprocedural examination (principal)
CPT/HCPCS: 36415; 80053; 81001; 85025; 86328; 86850

== ENCOUNTER 2020-10-13 13:35 | Inpatient (IN) | payer MEDICARE, SELFPAY ==
[2020-10-09 14:24] VITALS: BMI 27.1
[2020-10-13] VITALS (20 sets, daily range): BP systolic 109–148; BP diastolic 62–77; PULSE 67–88; RESP 18–20; TEMP 36.6–43; O2SAT 91–99
[2020-10-13 08:55] LABS: POC Glucose,Bedside 129 (70-110)
--- NOTE | 2020-10-13 14:39 | HMH.ANESCL ---
[facility] Anesthesia Checklist - Patient Identification Patient Identification: Arm Band - Structural Data Admitted From: Home Planned Operative Procedure/s: total shoulder Consent for Planned Operative Procedure(s) Verified: Yes Verified Documents: History and Physical - NPO Status Verified Time NPO: 00:00 - Chart Verification Results Verified: CBC, BMP - Additional verifications Patient : No Anesthesia Reactions: No Hx Blood Transfusions: No Blood Transfusion Reaction: No Cephalosporin Allergy: No Previous Colonoscopy: No - Cardiovascular Assessment Heart Sounds: S1 & S2 Pulse Strength: Baseline Pulse Rhythm: Regular Peripheral Edema: No - Airway Assessment C-Spine Mobility Assessed: Yes TMJ Mobility Assessed: Yes Dentition: Good Dentition - Neurological Assessment Level of Consciousness: Awake, Alert, Appropriate Hx Seizures: No Numbness or tingling in extremities: No - Anesthesia Plan Anesthesia Risk discussed: Yes Anesthesia Plan: Verified ASA Class: III Anesthesia Type: General w/block [facility] History I have reviewed the patient's past medical history: Yes Medical History: Reports:: Diabetes Mellitus Type 2, Hyperlipidemia, Hypertension Denies:: Cancer, Diabetes Mellitus Type 1, Internal Pacemaker, Lung Disease, MRSA, Seizures *Have you ever received a pneumonia vaccine?: No *Have you received a flu vaccine this season?: No Other Medical History: Reports: Arthritis. Denies: Blood Transfusion Reaction Anesthesia experience/problems:: none Laterality Cases: Right: Arthroscopy Hip, Other Other Surgeries: Yes: Colonoscopy. No: Pacemaker Amputation: No Fractures: No - *Social History Last grade of school completed: 9th or 10th Smoking Status: Never smoker Alcohol Intake: never Alcohol Intake Frequency:: other Substance Use Type: denies use *Occupational Status:: disabled Housing: house Household Members: children *Travel in the last 8 weeks: None Family Hx:: Cancer, Diabetes
--- NOTE | 2020-10-13 14:41 | P.PN_ITS ---
[facility] Anesthesia Record Part I Intake, IV Amount: 1,400 Estimated blood loss (mL): 100 Urine output (mL): 600 Blood Products used (#): none Blood Pressure: 119/70 SaO2: 94 Pulse Rate: 85 Respiratory Rate: 20 Temperature: 98.0 F Patient is:: Awake, Stable Stable to PACU at:: 14:34
--- NOTE | 2020-10-13 14:45 | XR_ITS ---
PROCEDURE: XR SHOULDER LT MIN 2V CLINICAL INDICATION: post op arthroplasty COMPARISON: CR SHOULDCMLT XR shoulder LT min 2V from 01/06/2019 CR XR SHOULDER LT MIN 2V from 07/24/2019 CR XR SHOULDER LT MIN 2V from 11/01/2019 CR XR SHOULDER LT MIN 2V from 08/12/2020 FINDINGS: Total left shoulder arthroplasty noted with good alignment. Postsurgical gas is present. There is an old left clavicle fracture. Surgical drains are present. Other findings:None. IMPRESSION: Good alignment status post total left arthroplasty of the shoulder Dictated by: Andrews Pryor MD 10/13/2020 15:06 Andrews Pryor MD in [place] 10/13/2020 15:06
--- NOTE | 2020-10-13 14:56 | HMH.HP ---
*Admission Date: 10/13/20 *Chief complaint: Rotator cuff tear arthropathy, left shoulder *History of present illness: Patient is a 70-year-old female, with rotator cuff tear arthropathy, who is admitted to the hospital following an elective left reverse shoulder arthroplasty earlier today. Prior to surgery patient had long-standing pain, weakness, and disability secondary to advanced cuff tear with secondary degenerative changes in the left shoulder. Patient has not responded well to conservative management including NSAID, Tylenol, and intra-articular injections in the past. A reverse shoulder arthroplasty is indicated to reduce the pain, improve function, range of movements and quality of life. Her use of the arm and ADLs are adversely affected; she also has history of night pain and sleep disturbance. The surgical and nonsurgical alternatives were discussed in detail with the patient as well as the risks and benefits of the surgery. Please refer to Orthopedic office notes for full details [facility] History I have reviewed the patient's past medical history: Yes Medical History: Reports:: Diabetes Mellitus Type 2, Hyperlipidemia, Hypertension Denies:: Cancer, Diabetes Mellitus Type 1, Internal Pacemaker, Lung Disease, MRSA, Seizures *Have you ever received a pneumonia vaccine?: No *Have you received a flu vaccine this season?: No Other Medical History: Reports: Arthritis. Denies: Blood Transfusion Reaction Anesthesia experience/problems:: none Laterality Cases: Right: Arthroscopy Hip, Other Other Surgeries: Yes: Colonoscopy. No: Pacemaker Amputation: No Fractures: No - *Social History Last grade of school completed: 9th or 10th Smoking Status: Never smoker Alcohol Intake: never Alcohol Intake Frequency:: other Substance Use Type: denies use *Occupational Status:: disabled Housing: house Household Members: children *Travel in the last 8 weeks: None Family Hx:: Cancer, Diabetes Review of Systems - Review of Systems Review of systems:: pertinent systems reviewed and negative unless documented below - Constitutional Denies chills, Denies fever(s) - Eyes Denies change in vision - ENT Denies abnormal hearing, Denies difficulty swallowing - *Cardiovascular Denies chest pain, Denies shortness of breath, Denies shortness of breath with activity - *Respiratory Denies chest congestion, Denies cough - *Gastrointestinal Denies abdominal pain, Denies change in bowel habits - *Musculoskeletal Reports joint pain, Reports limited joint movement, Denies abnormal walking - *Neurologic Denies abnormal walking, Denies seizure-like activity, Denies tingling/numbness/burning sensations - Endocrine Denies cold intolerance, Denies heat intolerance - Hematologic/Lymphatic Denies easy bleeding, Denies easy bruising Meds Home Medications Medication Instructions Recorded Confirmed Type lisinopril 40 mg tablet 40 mg PO DAILY 11/25/17 01/06/21 History glimepiride 1 mg tablet 1 mg PO DAILY tab 09/30/20 01/06/21 History Docusate Sodium [Docusate Sodium 100 mg PO BIDP PRN #20 cap 10/14/20 01/06/21 Rx 100mg Cap] Ferrous Sulfate [Ferrous Sulfate 325 mg PO DAILY #90 tab 10/14/20 01/06/21 Rx 325mg Tab] Hydrocod/Acet 5/325 mg [[place] 1 - 2 tab PO Q6HP PRN #60 tab 10/14/20 01/06/21 Rx 5/325mg tablet] Lovastatin 40 mg PO HS 10/14/20 01/06/21 History Amoxicillin/Potassium Clav 1 tab PO Q12H 7 Days #14 tab 04/30/21 Rx [Augmentin 875-125 Tablet] Fluticasone Propionate [Flonase 1 spr NS DAILY #1 bottle 04/30/21 Rx 50mcg nasal spray 16gm] Cefdinir [Omnicef 300mg Capsule] 300 mg PO BID #20 cap 09/20/21 Rx Promethazine/Dextromethorphan 5 ml PO Q6HP PRN #240 ml 09/20/21 Rx [Promethazine-Dm Syrup] guaiFENesin [Mucinex 600mg tablet] 1 - 2 tab PO BIDP PRN #30 tab 09/20/21 Rx predniSONE [Prednisone 20mg 20 mg PO BID 3 Days #6 tab 09/20/21 Rx Tab] Allergies Allergy/AdvReac Type Severity React
--- NOTE | 2020-10-13 15:11 | HMH.OPNOTE ---
Date of procedure: 10/13/20 Pre-op Diagnosis:: 1. Chronic pain, left shoulder 2. Rotator cuff tear arthropathy, left shoulder Post-op Diagnosis:: Same Procedure performed:: Reverse shoulder arthroplasty, left Surgeon:: Troy Carmona MD Supervisor Air Conditioning Installer(s):: Ramila Olivarez CLEAN OUT DRILLER:: Haydee Dunlap Anesthesia: GETA, regional Estimated blood loss (mL): 100 Clinical Note:: Patient is a 70-year-old female with degenerative changes in the left shoulder secondary to chronic rotator cuff tear.? Patient is having significant pain, stiffness and disability secondary to the rotator cuff tear and arthritis.? Please refer to my office note for full details. Operative findings:: Advanced degenerative changes involving both glenoid and humeral head as noted on the preoperative imaging. Patient also had complete full-thickness tears of the supraspinatus and infraspinatus tendons. Operative note:: The patient was identified in the preoperative holding area. Risks were discussed with the patient, who again consented to the surgical procedure. The site and side were marked and initialed by me. Patient was taken to the operating room and placed under general anesthesia and positioned in a beach chair position with the head in neutral position. All the bony prominences were appropriately padded. Prior to that patient also had interscalene nerve blocks in the preoperative area. The upper extremity was prepped and draped in the usual sterile fashion. A preprocedure timeout was performed as per hospital protocol. Administration of preoperative prophylactic antibiotics (IV Ancef and vancomycin) was confirmed with the banana carrier. A 10 cm long incision was made over the deltopectoral interval. Using a combination of Bovie cautery and blunt dissection, the deltopectoral interval was developed mobilizing the cephalic vein medially. The underlying fascia was incised and a combination of careful sharp and blunt dissection was used to free up the subdeltoid, subcoracoid and subacromial intervals. Rotator cuff pathology involving the subscapularis, supraspinatus and part of infraspinatus were identified. Excess degenerative rotator cuff was released and excised. The biceps tendon was absent in the groove. Inferiorly the capsule was carefully released and the humeral head was gently dislocated anteriorly. An external cutting guide was placed along the humerus and the humeral head and surrounding osteophytes were resected. A canal finder followed by sequential reaming and broaching was performed, and the trial broach was left in position. A calcar planar was used to fine-tune the depth, varus/valgus and version of the humeral cut. Retractors were then placed around the glenoid and the labrum was excised all around. The axillary nerve was identified by tug test and a careful capsular release was performed after protecting the axillary nerve. Osteophytes mainly anteriorly over the glenoid were removed with a rondure. Guide pin was drilled into the central inferior aspect of the glenoid at 10 degrees of inferior tilt using the drill guide. The glenoid was then reamed. A standard [place] reunion baseplate with a center screw and 4 peripheral locking screws was opened and assembled onto the glenoid with excellent initial fixation. Based off trialing and soft tissue tension, a Kirkwood reunion is size 12 humeral stem with a 4 mm humeral socket and 10 mm poly-liner was opened and assembled on the back table. A 32+6 glenosphere was opened and assembled onto the baseplate. The humeral stem and the humeral sided components were then malleted into position in the proper depth and version. Reduction confirmed with excellent soft tissue tension and range of motion with no signs of instability or bony impingement. All instruments were then removed. Copious amounts of pulsatile lavage was used in the shoulder followed by a Betadine rinse and more lavage. The incision was then closed in
--- NOTE | 2020-10-13 15:31 | HMH.PHAVTE ---
[facility] Pharmacy VTE Monitoring - Patient Demographics Admission date: 10/13/20 Report Date: 10/13/20 Time: 15:32 Allergies/Adverse Reactions: Patient Allergies ciprofloxacin [CIPROFLOXACIN] Allergy (Mild, Verified 10/13/20 08:38) Height: 1.6 m Weight: 69.4 kg Patient Problems: Current Active Problems Rotator cuff tear arthropathy of left shoulder (Acute) Status post reverse arthroplasty of left shoulder (Acute) Left shoulder pain (Acute) - Prophylaxis VTE Prophylaxis Ordered?: Yes Types of VTE Prophylaxis: IPCS Thigh High Location of Applied Device: Bilateral Lower Extremeties
[2020-10-13 15:35] LABS: Microscopic,Cath URINE MICROSCOPIC (MICROSCOPIC)
[2020-10-13 15:36] LABS: Appearance,Urine/Cath CLEAR (Clear); Bilirubin,Cath Negative (Negative); Blood, Urine/Cath Negative (Negative); Color,Urine/Cath YELLOW (Yellow); Glucose,Urine/Cath (UA) Negative (Negative); Ketones,Urine/Cath Negative (Negative); Leukocyte Esterase,Cath Negative (Negative); Nitrate,Cath Negative (Negative); PH,Urine/Cath 6.5 (5.0-8.5); Protein,Urine/Cath Negative (Negative); Urobilinogen,Cath 0.2 EU/dl (0.2)
[2020-10-13 15:52] LABS: Squamous Epithelial Ur./Cath Occasional #/hpf (0-5)
[2020-10-13 16:25] LABS: POC Glucose,Bedside 204 (70-110)
--- NOTE | 2020-10-13 17:42 | HMH.ANESII ---
[facility] Anesthesia Record Part II Discharge Time: 15:04 Destination: Medical Surgical Department PACU nurse assessment reviewed?: Yes Patient Condition:: Good Anesthesia Complications:: None Swallowing reflex intact?: Yes Cyanosis?: No Blood Pressure: 118/67 Pulse Rate: 81 Temperature: 97.9 F Mental Status: Alert & Oriented Pain level:: 0 Nausea and/or vomitting:: None Intake, IV Amount: 50
--- NOTE | 2020-10-13 19:50 | PC.NURSE ---
PATIENT A&O X4, LUNGS CLEAR, PULSES EQUAL, PATIENT IS ABLE TO MOVE LEFT SIDE FINGERS, PATIENT HAS NO COMPLAINTS OF PAIN. PATIENT DOES FEEL LIKE HER FINGERS ARE SWOLLEN. THIS RN EXPLAINED THAT IT IS FROM THE MEDICATION WEARING OFF, THIS RN ACCESSED PATIENT'S FINGERS, NO EDEMA NOTED AND ABLE TO SQUEEZE THIS RN HAND. THIS RN REMOVED 110ML OF BLOOD FROM DRAINAGE. NO CONCERNS AT THIS TIME.
[2020-10-14] VITALS: BP 140/62; PULSE 78; RESP 14; TEMP 36.9; O2SAT 96
[2020-10-14 04:00] VITALS: BP 122/59; PULSE 71; RESP 14; TEMP 36.7; O2SAT 96
--- NOTE | 2020-10-14 04:53 | PC.NURSE ---
no acute changes since prior assessment, has rested well t/o shift, no complaints of pain, drain in place with sanguineous fluid noted, 130 mL emptied so far this shift, pt has not complained of pain t/o shift, pt did state that her left hand felt odd, pt able to squeeze with left hand, it is warm, with no noticeable swelling
[2020-10-14 05:07] VITALS: BMI 27.3
[2020-10-14 06:50] LABS: Basophils % 0.5 % (0.1-2.0); Eosinophils # 0.1 K/mm3 (0.0-0.4); Eosinophils % 0.7 % (0.1-12.0); Hematocrit 37.1 % (37.0-47.0); Hemoglobin 12.6 g/dL (12.2-16.2); Lymphocytes # 2.6 K/mm3 (0.7-4.5); Lymphocytes % 28.8 % (10-50); Mean Corpuscular HGB Conc 33.9 g/dL (31.8-35.4); Mean Corpuscular Hemoglobin 32.2 pg (27.0-31.2); Mean Platelet Volume 8.1 fl (7.4-10.4); Monocytes # 0.5 K/mm3 (0.1-1.0); Monocytes % 5.9 % (1.7-9.3); Neutrophils # 5.7 K/mm3 (1.8-7.8); Platelet Count 180 K/mm3 (142-424); Red Blood Count 3.91 M/mm3 (4.20-5.40); Red Cell Distribution Width 12.9 % (11.5-17.5); White Blood Count 8.9 K/mm3 (4.8-10.8)
[2020-10-14 06:56] LABS: Chloride 104 mmol/L (98-107); Sodium 137 mmol/L (136-145)
[2020-10-14 06:57] LABS: Potassium 4.4 mmoL/L (3.5-5.1)
[2020-10-14 07:00] LABS: Anion Gap 9.4 mEq/L (5-15); Blood Urea Nitrogen 17 mg/dl (7-17); Calcium 9.2 mg/dl (8.4-10.2); Carbon Dioxide 28 mmol/L (22.0-30.0); Creatinine Clearance Estimated 59 mL/min (50-200); Estimated Glomerular Filt Rate 62 ml/min (>60); GFR (African American) 75 ML/MIN (>60); Glucose 116 mg/dl (74-100)
--- NOTE | 2020-10-14 07:34 | HMH.PHAINT ---
Medication reconciliation completed using pharmacy claims data.
[2020-10-14 08:00] VITALS: BP 118/70; PULSE 86; RESP 16; TEMP 36.4; O2SAT 96
[2020-10-14 11:18] VITALS: BP 127/59; PULSE 87; RESP 16; TEMP 37; O2SAT 93
--- NOTE | 2020-10-14 13:35 | SW/DCPLANNER ---
RECEIVED REFERRAL FOR THIS PATIENT FOR DISCHARGE PLANNING: MS THOMPSON PRESENTED INTO THE HOSPITAL WITH A ROTATOR CUFF TEAR THAT REQUIRED SURGICAL INTERVENTION.. I SPOKE WITH HER, HER DAUGHTER AND GRANDSON ABOUT THE PLANS FOR HER WHEN SHE IS READY TO DISCHARGE... THE DAUGHTER, ERIK STATED SHE LIVES WITH ME AND THE PLAN IS FOR HER TO RETURN BACK HOME AND THEY WILL EITHER DO OUT PATIENT PHYSICAL THERAPY OR HOME HEALTH WHEN SHE IS READY FOR HOME HEALTH TO START..WAITING TO SEE WHAT DR DOUGLASS ORDERS..
[2020-10-14 15:47] VITALS: BP 130/58; PULSE 93; RESP 17; TEMP 37.1; O2SAT 97
--- NOTE | 2020-10-14 15:57 | HMH.ORTHPN ---
Subjective Date: 10/14/20 Time: 15:30 Principal diagnosis: Status post reverse shoulder arthroplasty, left Interval history: Patient is status post reverse shoulder arthroplasty post op day #1. Patient is lying down in the bed; she says she is doing well and reports no problems. Patient has only minimal in the shoulder; says the nerve block has worn off but the pain is well controlled with as needed oral pain medication. No history of any nausea or vomiting. No history of any cough, chest pain, shortness of breath or palpitations. Patient says she is eating and drinking well. PN: Obj Ex Vital signs: Temp Pulse Resp BP Pulse Ox 98.7 F 93 H 17 130/58 L 97 10/14/20 15:47 10/14/20 15:47 10/14/20 15:47 10/14/20 15:47 10/14/20 15:47 Narrative: Laboratory Results - last 24 hr 10/13/20 16:16: POC Glucose 204 H 10/14/20 06:16: WBC 8.9, RBC 3.91 L, Hgb 12.6, Hct 37.1, MCV 95.0, MCH 32.2 H, MCHC 33.9, RDW 12.9, Plt Count 180, MPV 8.1, Neut % (Auto) 64.0, Lymph % (Auto) 28.8, [place] % (Auto) 5.9, Eos % (Auto) 0.7, Baso % (Auto) 0.5, Neut # (Auto) 5.7, Lymph # (Auto) 2.6, [place] # (Auto) 0.5, Eos # (Auto) 0.1, Baso # (Auto) 0.0 10/14/20 06:16: Sodium 137, Potassium 4.4, Chloride 104, Carbon Dioxide 28, Anion Gap 9.4, BUN 17, Creatinine 0.90, Estimated Creat Clear 59, Estimated GFR 62, Est GFR ( Amer) 75, Glucose 116 H, Calcium 9.2 Exam General appearance: alert, active, awake, no acute distress Cardiovascular: regular rate & rhythm, normal peripheral pulses Respiratory: No respiratory distress noted, speaks in full sentences ABD: soft and non tender Neuro: alert, awake, oriented x 3 Psych: Appropriate mood and affect for her situation On examination of the left shoulder the dressings are clean, dry and intact; she is in an arm sling. The surgical drain is in place. The drain is removed and dressings are changed by me. There is no soakage of the dressings. The incision looks clean and healthy. No discharge or wound complications are noted. There is some ecchymosis around the surgical incision and upper arm as to be expected. Distal pulses are 2+. Distal sensation is intact to light touch throughout. She has good range of active wrist and finger movements. Sensation is intact over the axillary nerve distribution. Deltoid is felt to be darin well. Progress Note: A&P (1) Rotator cuff tear arthropathy of left shoulder Status: Acute (2) Left shoulder pain Status: Acute (3) Status post reverse arthroplasty of left shoulder Status: Acute Assessment and Plan for All Diagnoses:: I have reviewed the clinical findings and progress with the patient and her daughter. Patient is doing well and reports no problems. Advised her to continue with the arm sling, rest, activity modification, regular icing/use the polar pack and as needed pain medication. Encouraged her to intermittently move the elbow, forearm, wrist and fingers. Strictly complete nonweightbearing on the LEFT upper extremity. Specifically advised her to not mobilize the shoulder actively; also advised her to place a pillow behind the elbow when lying down or sitting. She is keen to go back home and I am discharging her this afternoon. Follow-up in my office in 1 weeks? time with check x-ray.
--- NOTE | 2020-10-14 16:10 | HMH.DCSUM ---
General - General Admission date:: 10/13/20 Discharge date: 10/14/20 HPI HPI: Patient is a 70-year-old female, with degenerative changes in her left shoulder secondary to cuff tear arthropathy, who is admitted to the hospital electively following a reverse shoulder arthroplasty on 10/13/2020. Prior to surgery patient had long-standing pain, stiffness and disability secondary to advanced cuff tear arthropathy in her left shoulder. She has not responded well to conservative management including NSAID, Tylenol, and intra-articular injections in the past. A reverse shoulder arthroplasty is indicated to reduce the pain, improve function, range of movements and quality of life. Her use of the arm and ADLs are adversely affected; she also has history of night pain and sleep disturbance. The surgical and nonsurgical alternatives were discussed in detail with the patient as well as the risks and benefits of the surgery. Patient has a history of hypertension, hyperlipidemia, previous hip fracture, osteoarthritis and type 2 diabetes. Hospital Course Hospital Course: Patient underwent an uneventful reverse shoulder arthroplasty on 10/13/2020. Following surgery patient was admitted to hospital and progressed well without any complications. The postoperative check x-ray was satisfactory with good alignment and fixation of the components. After overnight hospital stay for observation, patient was discharged to home with self-care on 10/14/2020. Patient has minimal pain and her pain which is well controlled with as needed oral pain medication. The incision is healthy and the surgical drain was removed; no signs of any erythema, induration or discharge noted. The neurovascular status in the left upper extremity is intact. Distal pulses 2+ bilaterally and fully sensate distally. No clinical evidence of DVT noted. On the day of discharge, the patient has been stable. Patient's vital signs have been stable throughout and patient is afebrile at the time of discharge. She is being discharged home with family/self-care. Condition at discharge: improved and stable. Treatments and Procedures: Reverse shoulder arthroplasty, left; date of surgery 10/13/2020. Objective Vital signs: Temp Pulse Resp BP Pulse Ox 98.7 F 93 H 17 130/58 L 97 10/14/20 15:47 10/14/20 15:47 10/14/20 15:47 10/14/20 15:47 10/14/20 15:47 no acute distress, average body habitus - *Routine HEENT Exam Head: Present: normocephalic Eye: Present: EOMI ENT: Present: mucous membranes moist - *Routine Neck Exam Present: supple - *Routine Respiratory Exam Present: CTA bilaterally - *Routine Cardiovascular Exam Present: RRR - *Routine Abdominal Exam Present: soft, normoactive bowel sounds. Absent: tenderness - *Routine Extremities Exam Present: edema. Absent: cyanosis, clubbing Comments: On examination of the left shoulder the dressings are clean, dry and intact; she is in an arm sling. The surgical drain is in place. The drain is removed and dressings are changed by me. There is no soakage of the dressings. The wound looks clean and healthy. No discharge or wound complications are noted. There is some ecchymosis around the surgical incision and upper arm as to be expected. Distal pulses are 2+. Distal sensation is intact to light touch throughout. She has good range of active elbow, wrist and finger movements. Sensation is intact over the axillary nerve distribution. Deltoid is felt to be darin well. - *Routine Skin Exam Present: warm. Absent: rash - *Routine Neurological Exam Present: alert, oriented X3, normal tone - Routine Psychiatric Exam Present: normal affect, cooperative Results Labs on day of discharge: Labs from last 24 hours 10/14/20 10/14/20 10/13/20 06:16 06:16 16:16 WBC 8.9 RBC 3.91 L Hgb 12.6 Hct 37.1 MCV 95.0 MCH 32.2 H MCHC 33.9 RDW 12.9 Plt Count 180 MPV 8.1 Neut % (Aut
== END 2020-10-14 17:03 | disposition home or self-care (01) | DRG 483 ==
LOC: 2ND 13:37
PROVIDERS: Admitting Provider Orthopaedic Surgery; PCP Internal Medicine; Visit Provider Orthopaedic Surgery
PROC: (CPT 29805; principal; 2020-10-13 10:30)
DX: M19.012 Primary osteoarthritis, left shoulder (principal); M75.102 Unspecified rotator cuff tear or rupture of left shoulder, not specified as traumatic; E11.9 Type 2 diabetes mellitus without complications; I10 Essential (primary) hypertension; Z79.899 Other long term (current) drug therapy; Z88.1 Allergy status to other antibiotic agents; Z79.84 Long term (current) use of oral hypoglycemic drugs
CPT/HCPCS: 23472; 36415; 73030; 80048; 80053; 81001; 82962; 85025; 86328; 86850; 96374; C1713; C1776; J2405; J3370

== ENCOUNTER → 2020-10-21 14:39 | Outpatient (CLI) | payer MEDICARE, SELFPAY ==
--- NOTE | 2020-10-21 14:43 | XR_ITS ---
PROCEDURE: XR SHOULDER LT MIN 2V CLINICAL INDICATION: sp lt reverse total shoulder, sx 10/13/2020 COMPARISON: CR XR SHOULDER LT MIN 2V from 07/24/2019 CR XR SHOULDER LT MIN 2V from 11/01/2019 CR XR SHOULDER LT MIN 2V from 08/12/2020 CR XR SHOULDER LT MIN 2V from 10/13/2020 FINDINGS: Good alignment status post reverse total shoulder replacement. No fracture or dislocation. No arthritic complication. Other findings:None. IMPRESSION: Good alignment status post total shoulder replacement Dictated by: Andrews Pryor MD 10/21/2020 15:27 Andrews Pryor MD in [place] 10/21/2020 15:27
== END ==
PROVIDERS: PCP Internal Medicine; Visit Provider Orthopaedic Surgery
DX: Z96.612 Presence of left artificial shoulder joint (principal); M25.512 Pain in left shoulder
CPT/HCPCS: 73030

== ENCOUNTER 2020-11-18 11:51 | Emergency (ER) | payer MEDICARE, SELFPAY ==
[2020-11-18 12:35] VITALS: BP 116/77; PULSE 89; RESP 18; TEMP 36.6; O2SAT 100; BMI 23.3
--- NOTE | 2020-11-18 12:53 | HMH.EDUTC ---
[facility] [place] Disposition Clinical Impression: Exposure to COVID-19 virus Disposition: Home, Self-Care Condition on Discharge: Good Instructions: DI for COVID-19 (Suspected or Confirmed ), Coronavirus Disease 2019, Preventing the Spread of Coronavirus Discharge Instructions Additional Instructions: *Monitor Temp, Over the counter Motrin or Tylenol as directed/as needed Tylenol every 4 hours and Motrin every 6 hours (as long as your family doctor has told you that you can take it) for fever or pain. and straight to ER if unable to lower temp less than 101.0 after medication given Follow up IMMEDIATELY for new or worsening symptoms or no Noticeable improvement over the next 48-72 hours. 911 for difficulty breathing or swallowing You were tested for today for COVID19 your test result should be back in the next 24-48 hours, you may call to the [facility] to see if your test results are back in the next 48 hours [phone] [facility] hours are 9am-9pm You was given a handout with instructions for Self Quarantine and Self isolation for while you wait on test results and what to do if they are positive If you are positive the Health Dept will be contacting you also Referrals: Jefe Ruiz [Primary Care Provider] - As needed Time of Disposition: 12:55 Medical Decision Making - Carlos Inquiry Pt receiving controlled substance: No Carlos was queried for this patient: No Vital Signs: 11/18/20 12:35 Temperature 97.8 F Temperature Source Oral Pulse Rate [Right Brachial] 89 Respiratory Rate 18 Blood Pressure [Right Arm] 116/77 Blood Pressure Mean [Right Arm] 90 Blood Pressure Source [Right Arm] Automatic Cuff Blood Pressure Position [Right Arm] Sitting 02 Sat by Pulse Oximetry 100 Oxygen Delivery Method Room Air Orders (Tests/Meds): ORDERS Category Date Time Status Covid-19 Nasal PCR Sendout [facility] Stat Lab 11/18/20 12:33 Ordered [facility] [place] HPI - General Stated complaint: Covid test Time Seen by Provider: 11/18/20 12:53 Mode of Arrival: Ambulatory Source of Information: Patient Limitations: No Limitations Description of Symptoms (Recalled from Triage Doc. by RN): COVID TEST. NO SYMPTOMS/EXPOSURE HEENT Symptoms (Recalled from RN notes): No Resp Symptoms (Recalled from RN notes): No Skin Symptoms (Recalled from RN notes): No MS Symptoms (Recalled from RN notes): No Functional Status (Recalled from RN notes): WNL - History of Present Illness Provider Complaint: Patient states that she was around her daughter that has recently tested positive for COVID States that she is not having any symptoms but wanted to get tested due to exposure - Related Data Home Medications Medication Instructions Recorded Confirmed lisinopril 40 mg tablet 40 mg PO DAILY 11/25/17 11/04/20 glimepiride 1 mg tablet 1 mg PO DAILY tab 09/30/20 11/04/20 Lovastatin 40 mg PO HS 10/14/20 11/04/20 Previous Rx's Medication Instructions Recorded Docusate Sodium [Docusate Sodium 100 mg PO BIDP PRN #20 cap 10/14/20 100mg Cap] Ferrous Sulfate [Ferrous Sulfate 325 mg PO DAILY #90 tab 10/14/20 325mg Tab] Hydrocod/Acet 5/325 mg [[place] 1 - 2 tab PO Q6HP PRN #60 tab 10/14/20 5/325mg tablet] Allergies Allergy/AdvReac Type Severity Reaction Status Date / Time ciprofloxacin [CIPROFLOXACIN] Allergy Mild Verified 11/04/20 15:08 - Worker's Comp Is this a Worker's Comp case?: No [facility] History - Hepatitis A Screen Drug use history?: No High risk sexual behaviors?: No History of sexually transmitted infection?: No Currently employed?: No Childcare worker?: No Do you have indoor plumbing?: Yes Do you have electricity?: Yes Attestation statement:: This patient has been screened for Hepatitis A risk factors. I have reviewed the patient's past medical history: Yes Medical History: Reports:: Diabetes Mellitus Type 2, Hyperlipidemia, Hypertension Denies:: Cancer, Diabetes Mellitus Type 1, Internal Pacemaker, Lung Disease, MRSA, [place]
[2020-11-18 13:00] VITALS: BP 116/77; PULSE 89; RESP 18; TEMP 36.6; O2SAT 100
[2020-11-19 08:39] LABS: Covid-19 Nasal PCR Sendout P&C NEGATIVE
== END 2020-11-18 13:03 | disposition home or self-care (01) ==
PROVIDERS: Emergency Provider Nurse Practitioner; PCP Internal Medicine
DX: Z20.822 Contact with and (suspected) exposure to COVID-19 (principal); E11.9 Type 2 diabetes mellitus without complications; E78.5 Hyperlipidemia, unspecified; I10 Essential (primary) hypertension; Z79.899 Other long term (current) drug therapy
CPT/HCPCS: G0463; 99202; U0004

== ENCOUNTER → 2020-11-25 14:06 | Outpatient (CLI) | payer MEDICARE, SELFPAY ==
--- NOTE | 2020-11-25 14:11 | XR_ITS ---
PROCEDURE: XR SHOULDER LT MIN 2V CLINICAL INDICATION: status post LT reverse shoulder, sx 10/13/2020 COMPARISON: CR XR SHOULDER LT MIN 2V from 11/01/2019 CR XR SHOULDER LT MIN 2V from 08/12/2020 CR XR SHOULDER LT MIN 2V from 10/13/2020 CR XR SHOULDER LT MIN 2V from 10/21/2020 FINDINGS: Status post reverse left shoulder prosthesis with good alignment and no evidence orthopedic complication. There is some mild soft tissue calcification inferior to the acromion IMPRESSION: Good alignment status post left shoulder replacement Dictated by: Andrews Pryor MD 11/25/2020 14:51 Andrews Pryor MD in [place] 11/25/2020 14:51
== END ==
PROVIDERS: PCP Internal Medicine; Visit Provider Orthopaedic Surgery
DX: Z96.612 Presence of left artificial shoulder joint (principal)
CPT/HCPCS: 73030

== ENCOUNTER → 2021-01-06 14:17 | Outpatient (CLI) | payer MEDICARE, SELFPAY ==
--- NOTE | 2021-01-06 14:24 | XR_ITS ---
PROCEDURE: XR SHOULDER LT MIN 2V CLINICAL INDICATION: sp LT reverse total shoulder, sx 10/13/20 Follow-up shoulder replacement COMPARISON: CR XR SHOULDER LT MIN 2V from 08/12/2020 CR XR SHOULDER LT MIN 2V from 10/13/2020 CR XR SHOULDER LT MIN 2V from 10/21/2020 CR XR SHOULDER LT MIN 2V from 11/25/2020 FINDINGS: Reversed total left shoulder prosthesis is in place in good position. No evidence of orthopedic complication. No acute fracture or dislocation. There is cortical thickening along the lateral aspect of the scapula inferior to the glenoid region. This is unchanged. Hypertrophic changes are present in the subacromial area. IMPRESSION: Status post shoulder replacement with no acute finding Dictated by: Andrews Pryor MD 01/06/2021 15:14 Andrews Pryor MD in [place] 01/06/2021 15:14
== END ==
PROVIDERS: PCP Internal Medicine; Visit Provider Orthopaedic Surgery
DX: Z96.612 Presence of left artificial shoulder joint (principal); M25.512 Pain in left shoulder
CPT/HCPCS: 73030

== ENCOUNTER 2021-04-30 19:30 | Emergency (ER) | payer MEDICARE, SELFPAY ==
[2021-04-30 19:30] VITALS: BP 131/60; PULSE 97; RESP 22; TEMP 36.9; O2SAT 96; BMI 27.8
--- NOTE | 2021-04-30 19:46 | XR_ITS ---
PROCEDURE INFORMATION: Exam: XR Chest Exam date and time: 04/30/2021 7:46 PM Age: 71 years old Clinical indication: Shortness of breath; Additional info: SOB TECHNIQUE: Imaging protocol: XR of the chest. Views: 2 views. Total images: 2 COMPARISON: CR XR CHEST 2V 10/06/2020 5:02 PM FINDINGS: Lungs: Granulomatous calcification in the peripheral left lung base unchanged. Question slight hyperexpansion and hyperlucency with minimal diaphragmatic flattening suggesting possible COPD. Pulmonary vasculature grossly normal. No gross pulmonary infiltrates. Pleural spaces: No pleural effusion. No pneumothorax. Heart/Mediastinum: Heart size normal. No tracheal/mediastinal shift. Bones/joints: Left shoulder arthroplasty hardware without gross complication. Generalized osteopenia. Mild-moderate thoracolumbar scoliosis. No acute osseous abnormalities are identified. IMPRESSION: 1. No acute thoracic process. 2. Question mild changes of COPD.
[2021-04-30 20:04] VITALS: BP 131/60; PULSE 97; RESP 22; TEMP 36.9; O2SAT 96
--- NOTE | 2021-04-30 20:12 | HMH.EDUTC ---
[facility] [place] Disposition Clinical Impression: Sinusitis Qualifiers: Sinusitis location: unspecified location Chronicity: unspecified Qualified Code(s): J32.9 - Chronic sinusitis, unspecified Disposition: Home, Self-Care Condition on Discharge: Good Instructions: Sinusitis, DI for Sinusitis Additional Instructions: *Monitor Temp, Over the counter Motrin or Tylenol as directed/as needed Tylenol every 4 hours and Motrin every 6 hours (as long as your family doctor has told you that you can take it) for fever or pain. and straight to ER if unable to lower temp less than 101.0 after medication given *Warm salt water gargles may help to soothe the throat *Throat Lozenges *Warm fluids like tea with honey may help to soothe the throat *Sleep elevated *Humidifier/Vaporizer *Flonase 2 sprays in each nostril daily but be aware that it may take 2-3 days before you notice improvement Take medication as prescribed You got a steriod shot in the [facility] your blood sugar may be elevated for the next couple of days then should return to normal Follow up IMMEDIATELY for new or worsening symptoms or no Noticeable improvement over the next 48-72 hours. 911 for difficulty breathing or swallowing Prescriptions: Amoxicillin/Potassium Clav [Augmentin 875-125 Tablet] 1 tab PO Q12H 7 Days #14 tab Transmission Status: Received by [facility] Fluticasone Propionate [Flonase 50mcg nasal spray 16gm] 1 spr NS DAILY #1 bottle Transmission Status: Received by [facility] Referrals: Jefe Ruiz [Primary Care Provider] - As needed Time of Disposition: 20:57 Medical Decision Making - Carlos Inquiry Pt receiving controlled substance: No Carlos was queried for this patient: No Vital Signs: 04/30/21 19:30 04/30/21 20:04 Temperature 98.4 F 98.4 F Temperature Source Oral Pulse Rate 97 H Pulse Rate [Right Brachial] 97 H Respiratory Rate 22 22 Blood Pressure 131/60 Blood Pressure [Right Arm] 131/60 Blood Pressure Mean [Right Arm] 83 Blood Pressure Source [Right Arm] Automatic Cuff Blood Pressure Position [Right Arm] Sitting 02 Sat by Pulse Oximetry 96 Oxygen Delivery Method Room Air Orders (Tests/Meds): ED MEDICATIONS Discontinued Medications Generic Name Dose Route Start Last Admin Trade Name Freq PRN Reason Stop Dose Admin Amoxicillin/Clavulanate Potassium 1 each 04/30/21 20:43 04/30/21 20:49 Amoxicillin/Pot Clavulan 500mg Tablet PO 04/30/21 20:44 1 each ONCE ONE Administration Protocol Methylprednisolone Sodium Succinate 125 mg 04/30/21 20:41 04/30/21 20:52 Methylprednisolone Sod Succ 125mg Vial IM 04/30/21 20:42 125 mg ONCE ONE Administration Medical Decision Narrative: Medication discussed with pharmacy [facility] [place] HPI - General Stated complaint: diff breathing Time Seen by Provider: 04/30/21 20:12 Mode of Arrival: Ambulatory Source of Information: Patient Limitations: No Limitations Description of Symptoms (Recalled from Triage Doc. by RN): PATIENT STATES SHE HAS HAD A HEAD COLD FOR APPROX 1 MONTH THAT SHE HAS BEEN TREATING WITH OTC MEDICATION. SHE C/O PROBLEMS CATCHING HER BREATH ON AND OFF WHICH SEEMS WORSE TODAY AND NOT FEELING GOOD IN GENERAL. HEENT Symptoms (Recalled from RN notes): No Resp Symptoms (Recalled from RN notes): Yes Skin Symptoms (Recalled from RN notes): No MS Symptoms (Recalled from RN notes): No Functional Status (Recalled from RN notes): WNL - History of Present Illness Provider Complaint: Patient states that she has been having sinus congestion and head cold for over a month State that she has tried several over the counter medications but nothing is helping State that she is having pressure like feeling under her eyes and feeling like she is having drainage in the back of her throat States that she feels like her nose is all stopped up and feels like she cant catch her breath States that today she was still feeling bad so family made her come in and ge
== END 2021-04-30 21:00 | disposition home or self-care (01) ==
PROVIDERS: Emergency Provider Nurse Practitioner; PCP Internal Medicine
DX: J32.9 Chronic sinusitis, unspecified (principal); E11.9 Type 2 diabetes mellitus without complications; I10 Essential (primary) hypertension; E78.5 Hyperlipidemia, unspecified; Z79.899 Other long term (current) drug therapy
CPT/HCPCS: G0463; 71046; 96372; 99202

== ENCOUNTER → 2021-07-27 16:26 | Outpatient (CLI) | payer MEDICARE, SELFPAY ==
[2021-07-27 17:27] LABS: Creatinine,Urine Random 79 mg/dL (Not Estab.)
[2021-07-27 17:29] LABS: Microalbumin/Creatinine Ratio 17.2
[2021-07-27 18:34] LABS: Alanine Aminotransferase 14 U/L (12-78); Albumin Level 4.2 g/dl (3.5-5.0); Albumin/Globulin Ratio 1.6 (1.1-1.8); Alkaline Phosphatase 89 U/L (38-126); Anion Gap 12.9 mEq/L (5-15); Aspartate Amino Transferase 34 U/L (14-36); Bilirubin,Total 0.5 mg/dl (0.2-1.3); Blood Urea Nitrogen 22 mg/dl (7-17); Calcium 9.4 mg/dl (8.4-10.2); Carbon Dioxide 26 mmol/L (22.0-30.0); Chloride 107 mmol/L (98-107); Chol/HDL Ratio 4.1 (1-3.5); Cholesterol 194 mg/dl (140-200); Estimated Glomerular Filt Rate 62 ml/min (>60); GFR (African American) 75 ML/MIN (>60); Globulin 2.6 g/dL (1.3-3.2); Glucose 142 mg/dl (74-100); HDL Cholesterol 47 mg/dl (40-60); Potassium 4.9 mmoL/L (3.5-5.1); Sodium 141 mmol/L (136-145); Total Protein,Serum 6.8 g/dl (6.3-8.2); Triglycerides 177 mg/dl (30-150); VLDL Cholesterol 35 mg/dL (0-40)
[2021-07-27 18:45] LABS: Direct LDL Cholesterol 113.76 mg/dL (100-129)
== END ==
PROVIDERS: Visit Provider Internal Medicine
DX: E11.42 Type 2 diabetes mellitus with diabetic polyneuropathy (principal); I42.2 Other hypertrophic cardiomyopathy; I10 Essential (primary) hypertension; M19.121 Post-traumatic osteoarthritis, right elbow; Z79.84 Long term (current) use of oral hypoglycemic drugs
CPT/HCPCS: 80053; 80061; 82043; 82570; 83036

== ENCOUNTER → 2021-07-29 12:29 | Outpatient (CLI) | payer MEDICARE, SELFPAY | PROVIDERS: PCP Internal Medicine; Visit Provider Nurse Practitioner | DX: Z20.822 Contact with and (suspected) exposure to COVID-19 (principal) | CPT/HCPCS: C9803; U0003; U0005 ==

== ENCOUNTER → 2021-09-15 16:57 | Outpatient (CLI) | payer MEDICARE, SELFPAY | PROVIDERS: PCP Nurse Practitioner Family; Visit Provider Nurse Practitioner | DX: Z20.822 Contact with and (suspected) exposure to COVID-19 (principal) | CPT/HCPCS: C9803; U0003; U0005 ==

== ENCOUNTER 2021-09-20 13:16 | Emergency (ER) | payer MEDICARE, SELFPAY ==
[2021-09-20 15:26] VITALS: BP 157/81; PULSE 82; RESP 16; TEMP 36.8; O2SAT 98; BMI 27.3
--- NOTE | 2021-09-20 15:29 | XR_ITS ---
PROCEDURE INFORMATION: Exam: XR Chest Exam date and time: 09/20/2021 3:29 PM Age: 71 years old Clinical indication: Patient HX: Cough for 2 weeks. TECHNIQUE: Imaging protocol: XR of the chest. Views: 2 views. COMPARISON: CR XR CHEST 2V 04/30/2021 7:47 PM FINDINGS: Lungs: There is a pulmonary parenchymal calcification in the left lower lobe consistent with remote granulomatous organism exposure. The lungs appear otherwise clear. No focal areas of consolidation. Pleural spaces: No pleural effusions or appreciable adenopathy. Negative for pneumothorax. Heart/Mediastinum: Cardiac silhouette and pulmonary vasculature are within range of normal. Bones/joints: There is no evidence of acute fracture. There is a mild S-shaped thoracolumbar scoliosis.There has been a left shoulder arthroplasty, incompletely visualized. IMPRESSION: Negative for an acute cardiopulmonary abnormality.
--- NOTE | 2021-09-20 15:38 | HMH.EDUTC ---
[facility] [place] Disposition Clinical Impression: Bronchitis Sinusitis Qualifiers: Sinusitis location: unspecified location Chronicity: acute Recurrence: non-recurrent Qualified Code(s): J01.90 - Acute sinusitis, unspecified Disposition: Home, Self-Care Condition on Discharge: Good Instructions: DI for Sinusitis, DI for Acute Bronchitis Additional Instructions: Drink plenty of fluids. Take tylenol or ibuprofen for pain or fever. Take the medications as directed. Follow up with your regular doctor. GO TO THE ER FOR ANY WORSENING SYMPTOMS The cough medication (promethazine dm) will make you drowsy, so don't drive or operate heavy machinery after taking it. Prescriptions: Promethazine/Dextromethorphan [Promethazine-Dm Syrup] 5 ml PO Q6HP PRN #240 ml PRN Reason: Cough [facility] guaiFENesin [Mucinex 600mg tablet] 1 - 2 tab PO BIDP PRN #30 tab PRN Reason: Congestion Transmission Status: [facility] Cefdinir [Omnicef 300mg Capsule] 300 mg PO BID #20 cap Transmission Status: [facility] predniSONE [Prednisone 20mg Tab] 20 mg PO BID 3 Days #6 tab Transmission Status: [facility] Referrals: Jefe Ruiz [Primary Care Provider] - Time of Disposition: 16:08 Medical Decision Making - Medical Records Medical records reviewed: No: I reviewed the patient's medical records. - Carlos Inquiry Pt receiving controlled substance: No Vital Signs: 09/20/21 15:26 09/20/21 16:24 Temperature 98.3 F 98.3 F Temperature Source Oral Oral Pulse Rate 82 Pulse Rate [Right Brachial] 82 Respiratory Rate 16 18 Blood Pressure 157/81 H Blood Pressure [Right Arm] 157/81 H Blood Pressure Mean [Right Arm] 106 Blood Pressure Source [Right Arm] Automatic Cuff Blood Pressure Position [Right Arm] Sitting 02 Sat by Pulse Oximetry 98 Oxygen Delivery Method Room Air Room Air - Lab Data Lab results reviewed: Yes: I reviewed the patient's lab results. Orders (Tests/Meds): ED MEDICATIONS Discontinued Medications Generic Name Dose Route Start Last Admin Trade Name Freq PRN Reason Stop Dose Admin Ceftriaxone Sodium 1 gm 09/20/21 15:54 09/20/21 16:05 Ceftriaxone 1gm Vial IM 09/20/21 15:55 1 gm ONCE ONE Administration Lidocaine HCl 0 ml 09/20/21 15:54 09/20/21 16:05 Lidocaine 1% 5ml Pf Vial IM 09/20/21 15:55 2.1 ml ONCE ONE Administration Methylprednisolone Sodium Succinate 60 mg 09/20/21 15:54 Methylprednisolone Sod Succ 125mg Vial IM 09/20/21 15:55 ONCE ONE - Radiology Data #1 Image(s): Chest Image Reviewed: Yes I reviewed the patient's radiology image, Yes I have reviewed radiologist's interpretation Preliminary Findings: Normal/NAD, No Infiltrates Seen PROCEDURE INFORMATION: Exam: XR Chest Exam date and time: 09/20/2021 3:29 PM Age: 71 years old Clinical indication: Patient HX: Cough for 2 weeks. TECHNIQUE: Imaging protocol: XR of the chest. Views: 2 views. COMPARISON: CR XR CHEST 2V 04/30/2021 7:47 PM FINDINGS: Lungs: There is a pulmonary parenchymal calcification in the left lower lobe consistent with remote granulomatous organism exposure. The lungs appear otherwise clear. No focal areas of consolidation. Pleural spaces: No pleural effusions or appreciable adenopathy. Negative for pneumothorax. Heart/Mediastinum: Cardiac silhouette and pulmonary vasculature are within range of normal. Bones/joints: There is no evidence of acute fracture. There is a mild S-shaped thoracolumbar scoliosis.There has been a left shoulder arthroplasty, incompletely visualized. IMPRESSION: Negative for an acute cardiopulmonary abnormality. [facility] [place] HPI - General Stated complaint: head congestion Time Seen by Provider: 09/20/21 15:39 Mode of Arrival: Ambulatory Source
[2021-09-20 16:24] VITALS: BP 157/81; PULSE 82; RESP 18; TEMP 36.8; O2SAT 98
== END 2021-09-20 16:24 | disposition home or self-care (01) ==
PROVIDERS: Emergency Provider Nurse Practitioner Family; PCP Internal Medicine
DX: J20.9 Acute bronchitis, unspecified (principal); J01.90 Acute sinusitis, unspecified; E11.9 Type 2 diabetes mellitus without complications; E78.5 Hyperlipidemia, unspecified; I10 Essential (primary) hypertension
CPT/HCPCS: G0463; 71046; 96372; 99202

== ENCOUNTER → 2021-11-13 13:08 | Outpatient (CLI) | payer MEDICARE, SELFPAY ==
--- NOTE | 2021-11-14 11:38 | PC.NURSE ---
informed patient that she is positive
== END ==
PROVIDERS: Visit Provider Nurse Practitioner
DX: U07.1 COVID-19 (principal)
CPT/HCPCS: C9803; U0003; U0005

== ENCOUNTER 2022-03-18 21:45 | Emergency (ER) | payer MEDICARE, SELFPAY ==
[2022-03-18 22:08] VITALS: BP 0/0; PULSE 0; RESP 0; TEMP -17.7; TEMP 0; O2SAT 0
== END 2022-03-18 22:08 | disposition left against medical advice (07) ==
PROVIDERS: Emergency Provider Emergency Medicine; PCP Internal Medicine
DX: M79.605 Pain in left leg (principal); Z79.51 Long term (current) use of inhaled steroids; Z79.52 Long term (current) use of systemic steroids; Z79.899 Other long term (current) drug therapy; Z88.1 Allergy status to other antibiotic agents; Z88.3 Allergy status to other anti-infective agents; Z53.21 Procedure and treatment not carried out due to patient leaving prior to being seen by health care provider
CPT/HCPCS: 99211

== ENCOUNTER 2022-05-30 18:56 | Emergency (ER) | payer MEDICARE, SELFPAY ==
--- NOTE | 2022-05-30 19:31 | HMH.EDUTC ---
[facility] [place] Clinical Impression: Viral syndrome Sinusitis Qualifiers: Sinusitis location: unspecified location Chronicity: acute Recurrence: non-recurrent Qualified Code(s): J01.90 - Acute sinusitis, unspecified Disposition: Home, Self-Care Condition on Discharge: Good Instructions: DI for Sinusitis, DI for COVID-19 (Suspected or Confirmed ), Preventing the Spread of Coronavirus Discharge Instructions Additional Instructions: Drink plenty of fluids. Take tylenol or ibuprofen for pain or fever. Take the medications as directed. Follow up with your regular doctor. GO TO THE ER FOR ANY WORSENING SYMPTOMS Quarantine until you know the results of your covid-19 test. Notify your school or workplace of your results and follow their instructions regarding return to work/school. Prescriptions: Benzonatate [Benzonatate 100mg cap] 100 mg PO TIDP PRN #30 cap PRN Reason: Cough Transmission Status: Received by [facility] methylPREDNISolone [Medrol] 4 mg PO DIRECTED 6 Days #21 packet Transmission Status: Received by [facility] Cefdinir [Omnicef 300mg Capsule] 300 mg PO BID #20 cap Transmission Status: Received by [facility] Referrals: Jefe Ruiz MD [Primary Care Provider] - Time of Disposition: 20:21 Medical Decision Making - Medical Records Medical records reviewed: No: I reviewed the patient's medical records. - Carlos Inquiry Pt receiving controlled substance: No Vital Signs: 05/30/22 19:47 05/30/22 20:30 Temperature 98.4 F 98.4 F Temperature Source Oral Pulse Rate 62 Pulse Rate [Left] 62 Respiratory Rate 18 18 Blood Pressure 147/60 H Blood Pressure [Right Arm] 147/60 H Blood Pressure Mean [Right Arm] 89 02 Sat by Pulse Oximetry 98 Orders (Tests/Meds): ED MEDICATIONS Discontinued Medications Generic Name Dose Route Start Last Admin Trade Name Freq PRN Reason Stop Dose Admin Cefdinir 300 mg 05/31/22 20:21 Cefdinir 300mg Capsule PO 05/31/22 20:22 ONCE ONE ORDERS Category Date Time Status Covid-19 Nasal PCR ([facility]) Routine Lab 05/30/22 19:54 Received [facility] [place] HPI - General Stated complaint: cough, fever, and runny nose Time Seen by Provider: 05/30/22 19:31 - History of Present Illness Provider Complaint: She states that for the past 3 days she has had a low grade fever, chills, scratchy sore throat, and sinus congestion. She denies chest congestion. she does have a slight cough though. - Related Data Home Medications Medication Instructions Recorded Confirmed lisinopril 40 mg tablet 40 mg PO DAILY 11/25/17 01/06/21 glimepiride 1 mg tablet 1 mg PO DAILY tab 09/30/20 01/06/21 Lovastatin 40 mg PO HS 10/14/20 01/06/21 Previous Rx's Medication Instructions Recorded Docusate Sodium [Docusate Sodium 100 mg PO BIDP PRN #20 cap 10/14/20 100mg Cap] Ferrous Sulfate [Ferrous Sulfate 325 mg PO DAILY #90 tab 10/14/20 325mg Tab] Hydrocod/Acet 5/325 mg [[place] 1 - 2 tab PO Q6HP PRN #60 tab 10/14/20 5/325mg tablet] Amoxicillin/Potassium Clav 1 tab PO Q12H 7 Days #14 tab 04/30/21 [Augmentin 875-125 Tablet] Fluticasone Propionate [Flonase 1 spr NS DAILY #1 bottle 04/30/21 50mcg nasal spray 16gm] Cefdinir [Omnicef 300mg Capsule] 300 mg PO BID #20 cap 09/20/21 Promethazine/Dextromethorphan 5 ml PO Q6HP PRN #240 ml 09/20/21 [Promethazine-Dm Syrup] guaiFENesin [Mucinex 600mg tablet] 1 - 2 tab PO BIDP PRN #30 tab 09/20/21 predniSONE [Prednisone 20mg 20 mg PO BID 3 Days #6 tab 09/20/21 Tab] Benzonatate [Benzonatate 100mg 100 mg PO TIDP PRN #30 cap 05/30/22 cap] Cefdinir [Omnicef 300mg Capsule] 300 mg PO BID #20 cap 05/30/22 methylPREDNISolone [Medrol] 4 mg PO DIRECTED 6 Days #21 05/30/22 packet Allergies Allergy/AdvReac Type Severity Reaction Status Date / Time ciprofloxacin [CIPROFLOXACIN] Allergy Mild Verified 05/30/22 19:56 [facility] History
[2022-05-30 19:47] VITALS: BP 147/60; PULSE 62; RESP 18; TEMP 36.9; O2SAT 98; BMI 27.3
--- NOTE | 2022-05-30 20:29 | PC.NURSE ---
patient received cefdinir 300 mg 1x before she was discharged
[2022-05-30 20:30] VITALS: BP 147/60; PULSE 62; RESP 18; TEMP 36.9
== END 2022-05-30 20:38 | disposition home or self-care (01) ==
PROVIDERS: Emergency Provider Nurse Practitioner Family; PCP Internal Medicine
DX: J01.90 Acute sinusitis, unspecified (principal); B34.9 Viral infection, unspecified
CPT/HCPCS: 99212; C9803; G0463; U0003; U0005

== ENCOUNTER → 2022-08-02 16:31 | Outpatient (CLI) | payer MEDICARE, SELFPAY ==
--- NOTE | 2022-08-02 16:31 | MR_ITS ---
PROCEDURE INFORMATION: Exam: MR Head Without Contrast Exam date and time: 08/02/2022 4:37 PM Age: 72 years old Clinical indication: Pain; Headache; Additional info: Eval for CVA, mass lesion TECHNIQUE: Imaging protocol: Magnetic resonance imaging of the head without contrast. COMPARISON: No relevant prior studies available. FINDINGS: Brain: Severe T2 hyperintensity in the periventricular deep white matter bilaterally extending into the subcortical U fibers. These findings are likely due to chronic microangiopathic change with differential to include demyelinating disease and other underlying processes. Correlation with CSF analysis recommended. Cerebral ventricles: Mild enlargement of the ventricles, sulci and cisterns bilaterally. Bones/joints: Unremarkable. Paranasal sinuses: Severe mucosal thickening within the paranasal sinuses. No fluid levels are evident. Mastoid air cells: Normal as visualized. No mastoid effusion. Orbital cavities: Unremarkable. Soft tissues: Unremarkable. Other findings: No abnormal increased signal intensity on the diffusion-weighted sequence to suggest acute ischemic event. IMPRESSION: 1. No abnormal increased signal intensity on the diffusion-weighted sequence to suggest acute ischemic event. 2. Severe T2 hyperintensity in the periventricular deep white matter bilaterally extending into the subcortical U fibers. These findings are likely due to chronic microangiopathic change with differential to include demyelinating disease and other underlying processes. Correlation with CSF analysis recommended. 3. Mild cortical atrophy. 4. Severe mucosal thickening within the paranasal sinuses. No fluid levels are evident.
== END ==
PROVIDERS: PCP Internal Medicine; Visit Provider Nurse Practitioner Family
DX: G93.40 Encephalopathy, unspecified; R41.3 Other amnesia; E11.9 Type 2 diabetes mellitus without complications; I10 Essential (primary) hypertension; G47.00 Insomnia, unspecified; Z82.0 Family history of epilepsy and other diseases of the nervous system; Z79.84 Long term (current) use of oral hypoglycemic drugs
CPT/HCPCS: 70551

== ENCOUNTER → 2022-08-19 10:06 | Outpatient (CLI) | payer MEDICARE, SELFPAY ==
[2022-08-19 14:09] LABS: Thyroid Stimulating Hormone 1.69 uIU/mL (0.465-4.68)
[2022-08-19 15:26] LABS: Alanine Aminotransferase 16 U/L (12-78); Albumin Level 4.1 g/dl (3.5-5.0); Albumin/Globulin Ratio 1.6 (1.1-1.8); Alkaline Phosphatase 116 U/L (38-126); Anion Gap 17.3 mEq/L (5-15); Aspartate Amino Transferase 35 U/L (14-36); Bilirubin,Total 0.4 mg/dl (0.2-1.3); Blood Urea Nitrogen 25 mg/dl (7-17); Calcium 9.5 mg/dl (8.4-10.2); Carbon Dioxide 27 mmol/L (22.0-30.0); Chloride 101 mmol/L (98-107); Estimated Glomerular Filt Rate 55 ml/min (>60); GFR (African American) 66 ML/MIN (>60); Globulin 2.5 g/dL (1.3-3.2); Glucose 154 mg/dl (74-100); Sodium 139 mmol/L (136-145); Total Protein,Serum 6.6 g/dl (6.3-8.2)
[2022-08-19 15:49] LABS: Potassium 6.3 mmoL/L (3.5-5.1)
[2022-08-19 16:32] LABS: Vitamin B12 246 pg/mL (239-931)
[2022-08-19 16:33] LABS: Folate 7.33 ng/mL
[2022-08-19 19:28] LABS: Basophils # 0.1 K/mm3 (0-0.2); Eosinophils # 0.6 K/mm3 (0.0-0.4); Hemoglobin 13.6 g/dL (12.2-16.2); Lymphocytes # 1.7 K/mm3 (0.7-4.5); Lymphocytes % 28.1 % (10-50); Mean Corpuscular HGB Conc 31.7 g/dL (31.8-35.4); Mean Corpuscular Hemoglobin 31.6 pg (27.0-31.2); Mean Corpuscular Volume 99.7 fl (81-99); Mean Platelet Volume 9.8 fl (7.4-10.4); Monocytes # 0.2 K/mm3 (0.1-1.0); Monocytes % 2.9 % (1.7-9.3); Neutrophils # 3.5 K/mm3 (1.8-7.8); Neutrophils % 58.1 % (37.0-80.0); Platelet Count 222 K/mm3 (142-424); Red Blood Count 4.31 M/mm3 (4.20-5.40)
[2022-08-20 10:31] LABS: Rapid Plasma Reagin Ab Titer Non Reactive (NonRea<1:1)
[2022-08-20 12:12] LABS: Anti-Centromere B Antibodies <0.2 AI (0.0-0.9); Anti-DNA (DS) Ab Qn <1 IU/mL (0-9); Anti-Jo-1 <0.2 AI (0.0-0.9); Anti-Smith Antibody <0.2 AI (0.0-0.9); Antichromatin Antibodies <0.2 AI (0.0-0.9); Antiscleroderma-70 Antibodies <0.2 AI (0.0-0.9); RNP Antibodies <0.2 AI (0.0-0.9); Sjogren's Anti-SS-A <0.2 AI (0.0-0.9); Sjogren's Anti-SS-B 0.9 AI (0.0-0.9)
== END ==
PROVIDERS: PCP Internal Medicine; Visit Provider Nurse Practitioner Family
DX: E11.9 Type 2 diabetes mellitus without complications (principal); E78.01 Familial hypercholesterolemia; G47.00 Insomnia, unspecified; G93.40 Encephalopathy, unspecified; I10 Essential (primary) hypertension; R41.3 Other amnesia; Z82.0 Family history of epilepsy and other diseases of the nervous system
CPT/HCPCS: 36415; 80053; 82607; 82746; 84443; 85025; 86225; 86235; 86592

== ENCOUNTER 2022-08-19 16:16 | Emergency (ER) | payer MEDICARE, SELFPAY ==
[2022-08-19 16:30] VITALS: BP 151/59; PULSE 82; RESP 18; TEMP 36.9; O2SAT 98; BMI 26.5
[2022-08-19 16:55] VITALS: BMI 26.5
[2022-08-19 17:00] VITALS: BP 116/52; PULSE 76; RESP 18; O2SAT 96
[2022-08-19 17:05] LABS: Basophils # 0.1 K/mm3 (0-0.2); Basophils % 1.4 % (0.1-2.0); Eosinophils # 0.7 K/mm3 (0.0-0.4); Eosinophils % 8.2 % (0.1-12.0); Hematocrit 41.6 % (37.0-47.0); Hemoglobin 13.5 g/dL (12.2-16.2); Lymphocytes # 3.1 K/mm3 (0.7-4.5); Lymphocytes % 37.2 % (10-50); Mean Corpuscular HGB Conc 32.5 g/dL (31.8-35.4); Mean Corpuscular Hemoglobin 31.4 pg (27.0-31.2); Mean Corpuscular Volume 96.6 fl (81-99); Monocytes # 0.3 K/mm3 (0.1-1.0); Monocytes % 3.5 % (1.7-9.3); Neutrophils # 4.1 K/mm3 (1.8-7.8); Neutrophils % 49.6 % (37.0-80.0); Platelet Count 214 K/mm3 (142-424); Red Blood Count 4.31 M/mm3 (4.20-5.40); White Blood Count 8.2 K/mm3 (4.8-10.8)
[2022-08-19 17:08] LABS: Chloride 102 mmol/L (98-107); Potassium 4.8 mmoL/L (3.5-5.1); Sodium 141 mmol/L (136-145)
[2022-08-19 17:10] LABS: Blood Urea Nitrogen 26 mg/dl (7-17); Creatinine Clearance Estimated 54 mL/min (50-200); Estimated Glomerular Filt Rate 62 ml/min (>60); GFR (African American) 75 ML/MIN (>60)
[2022-08-19 17:11] LABS: Alanine Aminotransferase 17 U/L (12-78); Albumin Level 4.3 g/dl (3.5-5.0); Albumin/Globulin Ratio 1.6 (1.1-1.8); Alkaline Phosphatase 107 U/L (38-126); Anion Gap 13.8 mEq/L (5-15); Aspartate Amino Transferase 39 U/L (14-36); Bilirubin,Total 0.4 mg/dl (0.2-1.3); Carbon Dioxide 30 mmol/L (22.0-30.0); Globulin 2.7 g/dL (1.3-3.2); Glucose 93 mg/dl (74-100)
[2022-08-19 17:30] VITALS: BP 131/51; PULSE 78; RESP 18; O2SAT 96
[2022-08-19 18:00] VITALS: BP 112/50; PULSE 63; RESP 18; O2SAT 96
--- NOTE | 2022-08-19 18:36 | HMH.EDGENADL ---
Discharge Plan Disposition Patient Disposition: Home, Self-Care Condition: Good Prescriptions Prescriptions: No Action glimepiride 1 mg tablet 1 mg PO DAILY Label Comments: TAKE 1 TABLET BY MOUTH ONCE DAILY IN THE MORNING BEFORE MORNING MEAL FOR SUGAR Rx Instructions: Take 1 tablet by mouth once in the morning before meal donepezil 5 mg tablet 5 mg PO HS Label Comments: TAKE 1 TABLET BY MOUTH ONCE DAILY AT BEDTIME lisinopril 40 mg tablet 40 mg PO DAILY lovastatin 40 MG tablet 40 mg PO HS guaifenesin 600 MG tablet extended release 12hr 1 - 2 tab PO BIDP PRN (Reason: Congestion) Qty: 30 0RF benzonatate 100 MG capsule 100 mg PO TIDP PRN (Reason: Cough) Qty: 30 0RF Referrals Follow up/Referrals: Jefe Ruiz MD [Primary Care Provider] - See instructions Activity Restrictions/Add. Instructions Additional Instructions/Restrictions: Follow-up with Dr. Ruiz as needed Clinical Impressions Clinical Impression: Abnormal laboratory test Discharge ED Provider: Aris Hua General Adult HPI General Chief complaint: Recheck/Abnormal Lab/Rx Stated complaint: blood work bad Time Seen by Provider: 08/19/22 18:32 Mode of Arrival: Ambulatory Source of Information: Patient Limitations: No Limitations Description of Symptoms (Recalled from ER Triage Doc. by RN): PT stated she had bloodwork drawn this morning and received a phone call from Lalo Wright APRN to go to the ER due to abnormal labs, states she feels fine, she just has a cold History of Present Illness HPI narrative: The patient was sent to the emergency department by her PCP due to abnormally high potassium obtained on a routine blood draw today. Patient has no symptoms says she feels fine. Related Data Home Medications Medication Instructions Recorded Confirmed lisinopril 40 mg tablet 40 mg PO DAILY High blood pressure 11/25/17 07/20/22 glimepiride 1 mg tablet 1 mg PO DAILY Diabetes 09/30/20 07/20/22 lovastatin 40 mg tablet 40 mg PO HS Cholesterol 10/14/20 07/20/22 donepezil 5 mg tablet 5 mg PO HS 07/20/22 07/20/22 Previous Rx's Medication Instructions Recorded guaifenesin 600 mg tablet, 1 - 2 tab PO BIDP PRN Congestion 09/20/21 extended release 12 hr #30 tabs benzonatate 100 mg capsule 100 mg PO TIDP PRN Cough #30 caps 05/30/22 Allergies Allergy/AdvReac Type Severity Reaction Status Date / Time ciprofloxacin [CIPROFLOXACIN] Allergy Mild Verified 07/20/22 14:14 [facility] Medical History (Updated 08/19/22 @ 18:36 by Aris Hua MD) Closed fracture of right hip Rotator cuff tear arthropathy of left shoulder Surgical History (Updated 07/20/22 @ 14:18 by Nayeli Myers) Status post reverse total replacement of left shoulder Family History (Updated 07/20/22 @ 14:18 by Nayeli Myers) Other Cancer Stroke Social History Smoking Status: Never smoker alcohol intake: never counseling provided: provider counseling substance use type: denies use current occupational status: other Travel in the last 8 weeks: None household members: family housing: house caffeine: Yes ROS Obtained: Yes Systems reviewed as appropriate & no additional complaints except as documented Cardiovascular Cardiovascular: Denies chest pain Respiratory Respiratory: Denies shortness of breath Gastrointestinal Gastrointestingal: Denies abdominal pain, nausea or vomiting Physical Exam General General appearance: alert and in no apparent distress Chest Chest inspection: Present normal inspection and symmetric chest wall rise Respiratory Respiratory exam: Absent respiratory distress Cardiovascular Cardiovascular exam: Present regular rate Neurological Exam Neurological exam: Present alert and oriented X3 Psychiatric Psychiatric exam: Present normal affect and normal mood Skin Skin exam: Present warm and dry Medical Decision Making Carlos Inquiry Pt receiving control
[2022-08-19 18:46] VITALS: BP 110/62; BP 135/68; PULSE 64; PULSE 71; RESP 18; TEMP 36.9; TEMP 37.1; O2SAT 96; O2SAT 97
== END 2022-08-19 18:49 | disposition home or self-care (01) ==
PROVIDERS: Emergency Provider Emergency Medicine; PCP Internal Medicine
DX: R79.9 Abnormal finding of blood chemistry, unspecified (principal)
CPT/HCPCS: 36415; 80053; 82607; 82746; 84443; 85025; 86225; 86235; 86592; 99282

== ENCOUNTER 2022-09-28 14:51 | Emergency (ER) | payer MEDICARE, SELFPAY ==
--- NOTE | 2022-09-28 16:52 | EXP.UTC ---
Discharge Plan Disposition Patient Disposition: Home, Self-Care Condition: Good Prescriptions Prescriptions: New benzonatate [benzonatate] 100 mg capsule 100 mg PO TIDP PRN (Reason: Cough) Qty: 30 0RF azithromycin [Zithromax] 250 mg tablet 250 mg PO UD DOSE PK Qty: 6 0RF Rx Instructions: Take two (2) tablets today, then one (1) tablet days #2 thru #5 methylprednisolone 4 mg Tablets,Dose Pack 4 mg PO DIRECTED Qty: 21 0RF No Action glimepiride 1 mg tablet 1 mg PO DAILY Label Comments: TAKE 1 TABLET BY MOUTH ONCE DAILY IN THE MORNING BEFORE MORNING MEAL FOR SUGAR Rx Instructions: Take 1 tablet by mouth once in the morning before meal donepezil 5 mg tablet 5 mg PO HS Label Comments: TAKE 1 TABLET BY MOUTH ONCE DAILY AT BEDTIME lisinopril 40 mg tablet 40 mg PO DAILY lovastatin 40 MG tablet 40 mg PO HS guaifenesin 600 MG tablet extended release 12hr 1 - 2 tab PO BIDP PRN (Reason: Congestion) Qty: 30 0RF benzonatate 100 MG capsule 100 mg PO TIDP PRN (Reason: Cough) Qty: 30 0RF Referrals Follow up/Referrals: Jefe Ruiz MD [Primary Care Provider] - See instructions Activity Restrictions/Add. Instructions Additional Instructions/Restrictions: Drink plenty of fluids. Take tylenol or ibuprofen for pain or fever. Take the medications as directed. Follow up with your regular doctor. GO TO THE ER FOR ANY WORSENING SYMPTOMS Don't start the oral steroids until tomorrow, since you had the shot here today. Clinical Impressions Clinical Impression: Sinusitis Instructions Patient Instructions: Sinusitis, DI for Sinusitis, Dexamethasone Injection Discharge ED Provider: Jose Carlos Brown [facility] [place] HPI General Stated complaint: Headache, sinus pressure Time Seen by Provider: 09/28/22 16:51 History of Present Illness Provider Complaint: She states that for the past 1 week she has had sinus congestion, sinus drainage, and a nonproductive cough. Related Data Home Medications Medication Instructions Recorded Confirmed lisinopril 40 mg tablet 40 mg PO DAILY High blood pressure 11/25/17 08/31/22 glimepiride 1 mg tablet 1 mg PO DAILY Diabetes 09/30/20 08/31/22 lovastatin 40 mg tablet 40 mg PO HS Cholesterol 10/14/20 08/31/22 donepezil 5 mg tablet 5 mg PO HS 07/20/22 08/31/22 Previous Rx's Medication Instructions Recorded guaifenesin 600 mg tablet, 1 - 2 tab PO BIDP PRN Congestion 09/20/21 extended release 12 hr #30 tabs benzonatate 100 mg capsule 100 mg PO TIDP PRN Cough #30 caps 05/30/22 azithromycin 250 mg tablet 250 mg PO UD DOSE PK #6 tabs 09/28/22 (Zithromax) benzonatate 100 mg capsule 100 mg PO TIDP PRN Cough #30 caps 09/28/22 methylprednisolone 4 mg tablets in 4 mg PO DIRECTED #21 tabs 09/28/22 a dose pack Allergies Allergy/AdvReac Type Severity Reaction Status Date / Time ciprofloxacin [CIPROFLOXACIN] Allergy Mild Verified 09/28/22 17:23 [facility] Medical History Closed fracture of right hip Rotator cuff tear arthropathy of left shoulder Surgical History Status post reverse total replacement of left shoulder Family History Other Cancer Stroke Social History Smoking Status: Never smoker alcohol intake: never counseling provided: provider counseling substance use type: denies use current occupational status: other Travel in the last 8 weeks: None household members: family housing: house caffeine: Yes ROS Obtained: Yes All systems reviewed & no additional complaints except as documented Constitutional Constitutional: Denies chills and Denies fever(s) ENT Ears, Nose, Mouth, and Throat: Reports as per HPI Cardiovascular Cardiovascular: Denies chest pain Respiratory
[2022-09-28 17:10] LABS: UTC Influenza A Antigen Negative (Negative); UTC Influenza B Antigen Negative (Negative)
[2022-09-28 17:22] VITALS: BP 153/79; PULSE 84; RESP 18; TEMP 37; O2SAT 96; BMI 28.9
[2022-09-28 17:43] VITALS: BP 153/79; PULSE 84; RESP 18; TEMP 37
== END 2022-09-28 17:44 | disposition home or self-care (01) ==
PROVIDERS: Emergency Provider Nurse Practitioner Family; PCP Internal Medicine
DX: J32.9 Chronic sinusitis, unspecified (principal); R05.9 Cough, unspecified; Z79.899 Other long term (current) drug therapy; Z88.0 Allergy status to penicillin; Z88.1 Allergy status to other antibiotic agents; Z88.3 Allergy status to other anti-infective agents; Z96.612 Presence of left artificial shoulder joint
CPT/HCPCS: 87804; 99213; G0463

== ENCOUNTER → 2022-12-15 20:23 | Outpatient (CLI) | payer MEDICARE, SELFPAY | PROVIDERS: PCP Internal Medicine; Visit Provider Nurse Practitioner Family | DX: G47.33 Obstructive sleep apnea (adult) (pediatric) (principal); R09.02 Hypoxemia; R06.83 Snoring; R40.0 Somnolence; I10 Essential (primary) hypertension | CPT/HCPCS: 95810 ==

== ENCOUNTER → 2022-12-17 11:57 | Outpatient (CLI) | payer MEDICARE, SELFPAY ==
[2022-12-17 12:38] LABS: Basophils # 0.1 K/mm3 (0-0.2); Basophils % 0.5 % (0.1-2.0); Eosinophils # 0.2 K/mm3 (0.0-0.4); Eosinophils % 1.4 % (0.1-12.0); Hemoglobin 13.9 g/dL (12.2-16.2); Lymphocytes # 1.8 K/mm3 (0.7-4.5); Lymphocytes % 13.6 % (10-50); Mean Corpuscular HGB Conc 32.3 g/dL (31.8-35.4); Mean Corpuscular Volume 95.8 fl (81-99); Mean Platelet Volume 9.5 fl (7.4-10.4); Monocytes # 0.6 K/mm3 (0.1-1.0); Monocytes % 4.7 % (1.7-9.3); Neutrophils # 10.7 K/mm3 (1.8-7.8); Neutrophils % 79.9 % (37.0-80.0); Platelet Count 209 K/mm3 (142-424); Red Blood Count 4.48 M/mm3 (4.20-5.40); Red Cell Distribution Width 12.8 % (11.5-17.5); White Blood Count 13.3 K/mm3 (4.8-10.8)
[2022-12-17 12:58] LABS: Chloride 107 mmol/L (98-107); Sodium 140 mmol/L (136-145)
[2022-12-17 12:59] LABS: Potassium 3.9 mmoL/L (3.5-5.1)
[2022-12-17 13:01] LABS: Alanine Aminotransferase 18 U/L (12-78); Albumin Level 4.1 g/dl (3.5-5.0); Albumin/Globulin Ratio 1.6 (1.1-1.8); Alkaline Phosphatase 100 U/L (38-126); Anion Gap 10.9 mEq/L (5-15); Aspartate Amino Transferase 28 U/L (14-36); Bilirubin,Total 1.1 mg/dl (0.2-1.3); Blood Urea Nitrogen 16 mg/dl (7-17); Calcium 8.9 mg/dl (8.4-10.2); Carbon Dioxide 26 mmol/L (22.0-30.0); Cholesterol 184 mg/dl (140-200); Estimated Glomerular Filt Rate 55 ml/min (>60); GFR (African American) 66 ML/MIN (>60); Globulin 2.5 g/dL (1.3-3.2); Glucose 174 mg/dl (74-100); Total Protein,Serum 6.6 g/dl (6.3-8.2); Triglycerides 129 mg/dl (30-150); VLDL Cholesterol 26 mg/dL (0-40)
[2022-12-17 13:02] LABS: Chol/HDL Ratio 3.3 (1-3.5); HDL Cholesterol 55 mg/dl (40-60)
[2022-12-17 13:12] LABS: Direct LDL Cholesterol 115.25 mg/dL (100-129)
[2022-12-17 15:03] LABS: Hemoglobin A1C 5.7 % (4.0-6.0)
[2022-12-20 12:06] LABS: Creatinine,Urine Random 464 mg/dL (Not Estab.); Microalbumin/Creatinine Ratio 57.8
== END ==
PROVIDERS: PCP Internal Medicine; Visit Provider Internal Medicine
DX: E11.42 Type 2 diabetes mellitus with diabetic polyneuropathy (principal); I10 Essential (primary) hypertension; I42.2 Other hypertrophic cardiomyopathy; F41.9 Anxiety disorder, unspecified; G30.9 Alzheimer's disease, unspecified; Z79.84 Long term (current) use of oral hypoglycemic drugs
CPT/HCPCS: 80053; 80061; 82043; 82570; 83036; 85025

== ENCOUNTER → 2022-12-29 14:28 | Outpatient (CLI) | payer MEDICARE, SELFPAY ==
[2022-12-31 08:23] LABS: Homocyst(e)ine 20.8 umol/L (0.0-19.2)
[2023-01-04 00:07] LABS: Methylmalonic Acid 209 nmol/L (0-378)
== END ==
PROVIDERS: PCP Internal Medicine; Visit Provider Nurse Practitioner Family
DX: E53.8 Deficiency of other specified B group vitamins (principal); F03.90 Unspecified dementia, unspecified severity, without behavioral disturbance, psychotic disturbance, mood disturbance, and anxiety; G93.40 Encephalopathy, unspecified; R41.3 Other amnesia; I10 Essential (primary) hypertension
CPT/HCPCS: 36415; 82131; 83090

== ENCOUNTER → 2023-06-19 23:43 | Outpatient (CLI) | payer MEDICARE, SELFPAY ==
[2023-06-20 00:30] LABS: Coronavirus 19, PCR Not Detected (NotDetected); Influenza A, PCR Not Detected (NotDetected); Influenza B, PCR Not Detected (NotDetected)
--- NOTE | 2023-08-29 13:07 | PC.NURSE ---
Daughter refused the overnight pulse ox. She said her mother was seeing a different doctor.
== END ==
PROVIDERS: PCP Internal Medicine; Visit Provider Emergency Medicine
DX: Z20.822 Contact with and (suspected) exposure to COVID-19 (principal)
CPT/HCPCS: 87635; 87636

== ENCOUNTER 2024-03-27 06:19 | Day surgery (SDC) | payer MEDICARE, SELFPAY ==
[2024-03-21 13:55] VITALS: BMI 26.5
[2024-03-27] MEDS: SODIUM CHLORIDE 0.9% 10ML FLUSH SYRINGE 10 ML IV (06:30)
[2024-03-27] MEDS: PHENYLEPHRINE 2.5% OPHTH SOLN 2ML OP ×3 (06:30→06:31)
[2024-03-27] MEDS: CYCLOPENTOLATE 2% OPHTH SOLN 2ML BOTTLE OP ×3 (06:30→06:31)
[2024-03-27] MEDS: TETRACAINE 0.5% OPTH SOL 15ML OP ×3 (06:30→06:31)
[2024-03-27 06:52] VITALS: BP 135/54; PULSE 78; RESP 18; TEMP 36.1; O2SAT 99
[2024-03-27 07:05] LABS: POC Glucose,Bedside 127 (70-110)
[2024-03-27] MEDS: MIDAZOLAM 2MG/2ML VIAL 1 MG IV (07:55)
[2024-03-27 08:05] VITALS: BP 117/58; PULSE 64; RESP 18; TEMP 36.6; O2SAT 92
[2024-03-27] MEDS: TIMOLOL 0.5% OPTH SOLN 5ML OP (08:06)
[2024-03-27] MEDS: LIDOCAINE 1% PF 2ML AMPULE 2 ML IJ (08:06)
[2024-03-27] MEDS: TOBRAMYCIN/DEX OPTH SUSP 2.5ML OP (08:06)
[2024-03-27 08:10] VITALS: BP 116/57; PULSE 65; RESP 18; TEMP 36.6; O2SAT 94
[2024-03-27 08:15] VITALS: BP 136/62; PULSE 64; RESP 18; TEMP 36.6; O2SAT 93
[2024-03-27 08:19] VITALS: BP 131/67; PULSE 71; RESP 18; TEMP 36.4; O2SAT 96
--- NOTE | 2024-04-10 13:13 | HMH.PROCNOTE ---
[facility] Procedure Note Date: 03/27/24 Time: 13:13 Procedure Note:: Preoperative Diagnosis: Cataract combined NS Cortical Complex [Right] Eye Postop diagnosis: same Operation: Microscopic phacoemulsification with intraocular lens implant [Right] Eye Specimen: None Blood Loss: None The patient was examined in the office with a complaint of poor vision in the [right] eye. The patient reports that this interferes with ADLs such as reading, watching TV and/or driving or the vision is like looking through a foggy haze and is very troubling. The patient was examined and found to have a visually significant cataract with best corrected vision of [20/400] by refraction and/or glare testing. Treatment options, risks and benefits were explained and the patient elected to have cataract surgery in an attempt to improve their vision. The patient had the eye anesthetized with topical tetracaine, the eye ways prepped and draped in the usual fashion for cataract surgery. A paracentesis and a temporal keratotomy were made. 0.2cc of 1% lidocaine PF was placed into the anterior chamber. And aqueous/viscoelastic exchange was done and a 360 degree capsulorexis was performed. Through hydrodissection and delineation with BSS on a cannula was done. The lens nucleus was phecoemulsified with CDE of [7.82]. Residual cortical material was removed using automated I&A The capsular bag was deepened with viscoelastica and a PCIOL was placed in the capsular bag with good centration and stability. Residual viscoelastic was removed using automated I&A. The keratotomy incision was hydrated with BSS on a cannula. The wound were checked and found to be water tight. IOP was checked digitally and adjusted as needed so as not to be too high. 1 drop of timolol 0.5%, ofloxacin, prednisolone acetate and ketorolac was instilled and eye shield taped over the eye. The patient was taken to recovery in good condition and will be seen postoperatively.
== END 2024-03-27 08:32 | disposition home or self-care (01) ==
PROVIDERS: PCP Internal Medicine; Visit Provider Ophthalmology
PROC: (CPT 66984; principal; 2024-03-27 07:30)
DX: H25.11 Age-related nuclear cataract, right eye (principal); H53.8 Other visual disturbances; E11.9 Type 2 diabetes mellitus without complications; Z79.84 Long term (current) use of oral hypoglycemic drugs
CPT/HCPCS: 66984; 82962; V2632

== ENCOUNTER 2024-03-28 16:44 | Outpatient (CLI) | payer MEDICARE, SELFPAY ==
[2024-03-28 17:40] LABS: Basophils # 0.1 K/mm3 (0-0.2); Eosinophils # 0.2 K/mm3 (0.0-0.4); Eosinophils % 2.5 % (0.1-12.0); Hematocrit 44.4 % (37.0-47.0); Hemoglobin 14.1 g/dL (12.2-16.2); Lymphocytes # 2.2 K/mm3 (0.7-4.5); Lymphocytes % 26.7 % (10-50); Mean Corpuscular HGB Conc 31.8 g/dL (31.8-35.4); Mean Corpuscular Hemoglobin 31.5 pg (27.0-31.2); Mean Corpuscular Volume 99.2 fl (81-99); Mean Platelet Volume 9.6 fl (7.4-10.4); Monocytes # 0.4 K/mm3 (0.1-1.0); Monocytes % 4.6 % (1.7-9.3); Neutrophils # 5.5 K/mm3 (1.8-7.8); Neutrophils % 65.2 % (37.0-80.0); Platelet Count 220 K/mm3 (142-424); Red Blood Count 4.47 M/mm3 (4.20-5.40); Red Cell Distribution Width 13.2 % (11.5-17.5); White Blood Count 8.4 K/mm3 (4.8-10.8)
[2024-03-28 18:17] LABS: Alanine Aminotransferase 14 U/L (12-78); Albumin Level 4.3 g/dl (3.5-5.0); Albumin/Globulin Ratio 1.6 (1.1-1.8); Alkaline Phosphatase 85 U/L (38-126); Aspartate Amino Transferase 33 U/L (14-36); Bilirubin,Total 0.6 mg/dl (0.2-1.3); Calcium 9.7 mg/dl (8.4-10.2); Chloride 102 mmol/L (98-107); Cholesterol 212 mg/dl (140-200); Globulin 2.7 g/dL (1.3-3.2); Glucose 99 mg/dl (74-100); HDL Cholesterol 53 mg/dl (40-60); Potassium 4.8 mmoL/L (3.5-5.1); Sodium 141 mmol/L (136-145); Triglycerides 178 mg/dl (30-150); VLDL Cholesterol 36 mg/dL (0-40)
[2024-03-28 18:20] LABS: Anion Gap 12.8 mEq/L (5-15); Blood Urea Nitrogen 21 mg/dl (7-17); Carbon Dioxide 31 mmol/L (22.0-30.0); Estimated Glomerular Filt Rate 55 ml/min (>60); GFR (African American) 66 ML/MIN (>60)
[2024-03-28 18:29] LABS: Direct LDL Cholesterol 131.78 mg/dL (100-129)
[2024-03-28 18:32] LABS: Creatinine,Urine Random 84 mg/dL (Not Estab.)
[2024-03-28 18:35] LABS: Microalbumin/Creatinine Ratio 8.2
[2024-03-28 19:15] LABS: Hemoglobin A1C 6.2 % (4.0-6.0)
== END 2024-03-28 23:59 | disposition home or self-care (01) ==
LOC: LAB.DROPOF 16:45
PROVIDERS: PCP Internal Medicine; Visit Provider Internal Medicine
DX: E11.42 Type 2 diabetes mellitus with diabetic polyneuropathy (principal); I10 Essential (primary) hypertension; M19.121 Post-traumatic osteoarthritis, right elbow; I42.2 Other hypertrophic cardiomyopathy; F41.9 Anxiety disorder, unspecified; E78.5 Hyperlipidemia, unspecified; G30.9 Alzheimer's disease, unspecified; Z79.84 Long term (current) use of oral hypoglycemic drugs
CPT/HCPCS: 80053; 80061; 82043; 82570; 83036; 85025

== ENCOUNTER 2024-04-10 06:21 | Day surgery (SDC) | payer MEDICARE, SELFPAY ==
[2024-04-06 13:53] VITALS: BMI 27.4
[2024-04-10] VITALS (7 sets, daily range): BP systolic 111–149; BP diastolic 53–67; PULSE 72–103; RESP 16–18; TEMP 36.2–36.6; O2SAT 88–98
[2024-04-10] MEDS: PHENYLEPHRINE 2.5% OPHTH SOLN 2ML OP ×3 (06:49→06:50)
[2024-04-10] MEDS: TETRACAINE 0.5% OPTH SOL 15ML OP ×3 (06:49→06:50)
[2024-04-10] MEDS: CYCLOPENTOLATE 2% OPHTH SOLN 2ML BOTTLE OP ×3 (06:49→06:50)
[2024-04-10] MEDS: LACTATED RINGERS 1000ML 1,000 ML 25 ML IV (06:55)
[2024-04-10] MEDS: MIDAZOLAM 2MG/2ML VIAL 1 MG IV (07:32)
[2024-04-10] MEDS: TIMOLOL 0.5% OPTH SOLN 5ML OP (07:44)
[2024-04-10] MEDS: LIDOCAINE 1% PF 2ML AMPULE 2 ML IJ (07:44)
[2024-04-10] MEDS: TOBRAMYCIN/DEX OPTH SUSP 2.5ML OP (07:45)
--- NOTE | 2024-04-10 12:54 | P.PCN_ITS ---
[facility] Procedure Note Date: 04/10/24 Time: 12:54 Procedure Note:: Preoperative Diagnosis: Cataract combined NS Cortical Complex [Left] Eye Postop diagnosis: same Operation: Microscopic phacoemulsification with intraocular lens implant [Left] Eye Specimen: None Blood Loss: None The patient was examined in the office with a complaint of poor vision in the [left] eye. The patient reports that this interferes with ADLs such as reading, watching TV and/or driving or the vision is like looking through a foggy haze and is very troubling. The patient was examined and found to have a visually significant cataract with best corrected vision of [20/100] by refraction and/or glare testing. Treatment options, risks and benefits were explained and the patient elected to have cataract surgery in an attempt to improve their vision. The patient had the eye anesthetized with topical tetracaine, the eye ways prepped and draped in the usual fashion for cataract surgery. A paracentesis and a temporal keratotomy were made. 0.2cc of 1% lidocaine PF was placed into the anterior chamber. And aqueous/viscoelastic exchange was done and a 360 degree capsulorexis was performed. Through hydrodissection and delineation with BSS on a cannula was done. The lens nucleus was phecoemulsified with CDE of [7.23]. Residual cortical material was removed using automated I&A The capsular bag was deepened with viscoelastica and a PCIOL was placed in the capsular bag with good centration and stability. Residual viscoelastic was removed using automated I&A. The keratotomy incision was hydrated with BSS on a cannula. The wound were checked and found to be water tight. IOP was checked digitally and adjusted as needed so as not to be too high. 1 drop of timolol 0.5%, ofloxacin, prednisolone acetate and ketorolac was instilled and eye shield taped over the eye. The patient was taken to recovery in good condition and will be seen postoperatively.
[2024-04-10 16:46] LABS: POC Glucose,Bedside 119 (70-110)
== END 2024-04-10 08:09 | disposition home or self-care (01) ==
PROVIDERS: PCP Internal Medicine; Visit Provider Ophthalmology
PROC: (CPT 66984; principal; 2024-04-10 07:30)
DX: H25.12 Age-related nuclear cataract, left eye (principal); H53.8 Other visual disturbances
CPT/HCPCS: 66984; 82962; J2250; J7120; V2632

== ENCOUNTER 2024-09-29 12:36 | Emergency (ER) | payer MEDICARE, SELFPAY ==
--- NOTE | 2024-09-29 13:22 | EXP.UTC ---
Discharge Plan Disposition Patient Disposition: Home, Self-Care Condition: Good Prescriptions Prescriptions: New methylprednisolone 4 mg Tablets,Dose Pack 4 mg PO DIRECTED 6 Days Qty: 21 0RF Rx Instructions: Take 1 pack as directed for 6 days No Action glimepiride 1 mg tablet See Rx Instructions .ROUTE .COMPLEX Qty: 90 1RF Dose Instruction: TAKE 1 TABLET BY MOUTH IN THE MORNING Rx Instructions: TAKE 1 TABLET BY MOUTH IN THE MORNING lisinopril 40 mg tablet 40 mg PO DAILY Qty: 90 1RF lovastatin 40 mg tablet See Rx Instructions .ROUTE .COMPLEX Qty: 90 1RF Dose Instruction: Take 1 tablet by mouth once daily Rx Instructions: Take 1 tablet by mouth once daily Referrals Follow up/Referrals: Jefe Ruiz MD [Primary Care Provider] - See instructions Activity Restrictions/Add. Instructions Additional Instructions/Restrictions: Go home and rest. It would be best if you rested tomorrow too. No heavy lifting & No twisting for the next few days. Take the oral medications as directed. Don't start the oral steroids (medrol dose pack) until tomorrow, since you had the shots in here today. Follow up with your regular doctor. GO TO THE ER FOR ANY WORSENING SYMPTOMS OR CONCERN, ESPECIALLY BOWEL OR BLADDER ISSUES, SADDLE AREA NUMBNESS, FEVER, ETC Clinical Impressions Clinical Impression: Low back pain, Left sided sciatica Instructions Patient Instructions: Ketorolac Injection, Dexamethasone Injection Print Language Print Language: Luxembourgish Discharge ED Provider: Jose Carlos Brown [facility] [place] General Stated complaint: left leg pain from ankle to hip into back Time Seen by Provider: 09/29/24 13:22 History of Present Illness Provider Complaint: She states that she has had low back pain that radiates down her left leg for the past 5 days. She denies any urinary complaints. She denies any falls or trauma. Related Data Previous Rx's ?Medication ?Instructions ?Recorded glimepiride 1 mg tablet See Rx Instructions .Route 07/19/24 .COMPLEX #90 tabs lisinopril 40 mg tablet 40 mg PO DAILY High blood pressure 07/19/24 #90 tabs lovastatin 40 mg tablet See Rx Instructions .Route 07/20/24 .COMPLEX #90 tabs methylprednisolone 4 mg tablets in 4 mg PO DIRECTED 6 days #21 tabs 09/29/24 a dose pack Allergies Allergy/AdvReac Type Severity Reaction Status Date / Time ciprofloxacin (CIPROFLOXACIN) Allergy Mild Verified 04/10/24 06:56 [facility] Disclaimer: The information contained in this section may have been updated after the patient was seen, as this information can be updated by other users. Medical History (Updated 09/29/24 @ 14:21 by Jose Carlos Brown APRN) Severe sleep apnea B12 deficiency Memory loss Encephalopathy Closed fracture of right hip Diabetes mellitus Hypertension Rotator cuff tear arthropathy of left shoulder Hyperlipidemia Surgical History Status post reverse total replacement of left shoulder Family History Other Cancer Stroke Social History Smoking Status: Never smoker alcohol intake: never counseling provided: provider counseling substance use type: denies use current occupational status: unemployed and other household members: family housing: house caffeine: Yes ROS Obtained: Yes All systems reviewed & no additional complaints except as documented Constitutional Constitutional: Denies chills and Denies fever(s) Eyes Eyes: Denies eye discharge ENT Ears, Nose, Mouth, and Throat: Denies dizziness, Denies otalgia, Denies neck pain and Denies sore throat Cardiovascular Cardiovascular: Denies chest pain Respiratory Respiratory: Denies shortness of breath, Denies chest congestion, Denies cough, Denies stridor and Denies wheezing Gastrointestinal Gastrointestingal: Denies nausea or vomiting Musculoskeletal Musculoskeletal: Reports as per HPI, Reports back pain, Denies neck pain and Denies numbness Integumentary/Breasts Skin/Breast: Denies redness, Denies rash and Denies wounds Neurologic Neurologic: Denies dizziness, Denies numbness, Denies paresthesias and Reports radicular pain Allergic/Immunologic Allergic/Immunologic: Denies wheezing Physical Exam General General appearance: alert and in no apparent distress Head Head exam: atraumatic, normocephalic and normal inspection Eye Eye exam: Present normal appearance, PERRL and EOMI ENT ENT exam: Present normal exam, normal oropharynx, mucous membranes moist, TM's normal bilaterally and normal external ear exam Neck Neck exam: Present normal inspection, full ROM and trachea midline; Absent meningismus or lymphadenopathy Chest Chest inspection: Present normal inspection and symmetric chest wall rise; Absent tenderness Respiratory Respiratory exam: Present normal lung sounds bilaterally; Absent respiratory distress Cardiovascular Cardiovascular exam: Present regular rate and normal rhythm; Absent JVD Expanded Cardiovascular Exam Peripheral pulses: 2+: posterior tibialis (R), posterior tibialis (L), dorsalis pedis (R) and dorsalis pedis (L) Abdominal Exam Abdominal exam: Present soft and normal bowel sounds; Absent distention, tenderness or guarding Extremities Exam Extremities exam: Present normal capillary refill; Absent calf tenderness Expanded Lower Extremity Exam Left: Hip/Pelvis exam: Present normal inspection and full ROM; Absent tenderness Upper leg exam: Present normal inspection and full ROM; Absent tenderness Knee exam: Present normal inspection, full ROM and knee extension intact; Absent tenderness Lower leg exam: Present normal inspection and full ROM; Absent tenderness Ankle exam: Present normal inspection and full ROM; Absent tenderness Foot/toe exam: Present normal inspection and full ROM; Absent tenderness Neurovascular/Tendon exam: Present normal capillary refill, normal 2-point discrimination and normal fine/light touch; Absent pulse deficit, motor deficit, sensory deficit, tendon deficit, extremity cold to touch or pallor Gait: observed and normal Back Exam Back exam: Present normal inspection; Absent tenderness Neurological Exam Neurological exam: Present alert, oriented X3, CN II-XII intact, normal gait and motor sensory deficit; Absent reflexes normal Expanded Neurological Exam Speech: Present fluid speech Cranial nerves: Normal: EOM function (II, III, IV, ), facial sensation (V), facial palsy (VII), gag reflex (IX), spinal accessory function (XI) and tongue deviation (XII) Cerebellar function: normal gait Motor strength - LUE: 5/5 Motor strength - RUE: 5/5 Motor strength - LLE: 5/5 Motor strength - RLE: 5/5 Upper motor neuron exam: Normal: aba neglect and sensory extinction Sensory exam upper extremity: Normal: light touch and 2 point discrimination Sensory exam lower extremity: Normal: light touch and 2 point discrimination DTR: 2+: biceps (L), biceps (R), patellar (L), patellar (R), Achilles tendon (L) and Achilles tendon (R) Spinal cord function: Absent saddle anesthesia Psychiatric Psychiatric exam: Present normal affect and normal mood Skin Skin exam: Present warm, dry, intact and normal color Lymphatic Lymphatic Findings: no adenopathy Medical Decision Making Medical Records Medical records reviewed: No I reviewed the patient's medical records. Screening: Per USPSTF and CDC recommendations, given the prevalence of disease in our region, it is our hospital?s policy to screen for HIV and viral Hepatitis for all patients aged 18 and over and those with ongoing risk factors. Carlos Inquiry Pt receiving controlled substance: No
[2024-09-29 13:29] VITALS: BP 142/82; PULSE 76; RESP 18; TEMP 36.6; O2SAT 100; BMI 26.9
[2024-09-29 13:58] LABS: Apearance,Urine Clear (Clear); Bilirubin,Urine Negative (Negative); Blood, Urine Trace (Negative); Color,Urine Yellow (Yellow); Glucose,Urine (UA) Negative (Negative); Ketones,Urine Negative (Negative); Protein,Urine Negative (Negative); Specific Gravity, Urine 1.025 (1.005-1.030); UTC Leukocyte Esterase,Urine 1+ (Negative); UTC Nitrate,Urine Negative (Negative); Urobilinogen,Urine 0.2 EU/dl (0.2)
[2024-09-29] MEDS: KETOROLAC 60MG/2ML VIAL 30 MG IM (14:21)
[2024-09-29] MEDS: DEXAMETHASONE 4MG/ML 1ML VIAL 4 MG IM (14:21)
[2024-09-29 14:28] VITALS: BP 142/82; PULSE 76; RESP 18; TEMP 36.6
--- NOTE | 2024-10-01 10:55 | PC.NURSE ---
REVIEWED URINE CULTURE WITH Preet VALENZUELA APRN. PATIENT IS NOT CURRENTLY ON ANTIBIOTICS. ANTIBIOTIC SENT IN AND PATIENT AND POA NOTIFIED PER Preet VALENZUELA APRN
== END 2024-09-29 14:32 | disposition home or self-care (01) ==
PROVIDERS: Emergency Provider Nurse Practitioner Family; PCP Internal Medicine
DX: N39.0 Urinary tract infection, site not specified (principal)
CPT/HCPCS: 81003; 87086; 87088; J1100; J1885

== ENCOUNTER 2024-09-29 20:32 | Emergency (ER) | payer MEDICARE, SELFPAY ==
[2024-09-29 20:41] VITALS: BP 164/78; PULSE 117; RESP 20; TEMP 36.9; O2SAT 98; BMI 32.9
--- NOTE | 2024-09-29 20:42 | XR_ITS ---
PROCEDURE INFORMATION: Exam: XR Left Hip Exam date and time: 09/29/2024 9:04 PM Age: 74 years old Clinical indication: Injury or trauma; Fall; Other: Pain TECHNIQUE: Imaging protocol: Radiologic exam of the left hip. Views: 2 or 3 views hip with pelvis when performed. COMPARISON: CR (PELVIS AP, HIP, PELVIS AP) 04/04/2019 1:11 PM FINDINGS: Bones/joints: No acute fracture. Gamma nail fixation of RIGHT femur. Degenerative changes of lower lumbar spine. No dislocation. Soft tissues: Unremarkable. IMPRESSION: No fracture. If hip pain persists, consider MRI to exclude occult fracture/internal derangement.
--- NOTE | 2024-09-29 20:42 | CT_ITS ---
PROCEDURE INFORMATION: Exam: CT Cervical Spine Without Contrast Exam date and time: 09/29/2024 9:06 PM Age: 74 years old Clinical indication: Injury or trauma; Fall; Other: Pain TECHNIQUE: Imaging protocol: Computed tomography of the cervical spine without contrast. Radiation optimization: All CT scans at this facility use at least one of these dose optimization techniques: automated exposure control; mA and/or kV adjustment per patient size (includes targeted exams where dose is matched to clinical indication); or iterative reconstruction. COMPARISON: CT HEAD/BRAIN WO CON 09/29/2024 9:04 PM FINDINGS: Bones: Spine alignment is normal. No fracture or bone destruction. Hypertrophic pannus around the dens and pre dental space narrowing consistent with arthritis. Moderate to severe multilevel facet arthropathy. Lungs: Lung apices are normal. Vasculature: Carotid calcifications. Soft tissues: Unremarkable. IMPRESSION: 1. Spine alignment is normal. 2. No fracture or bone destruction. 3. Hypertrophic pannus around the dens and pre dental space narrowing consistent with arthritis. 4. Moderate to severe multilevel facet arthropathy. 5. Carotid calcifications.
--- NOTE | 2024-09-29 20:42 | XR_ITS ---
PROCEDURE INFORMATION: Exam: XR Chest Exam date and time: 09/29/2024 9:04 PM Age: 74 years old Clinical indication: Injury or trauma; Fall; Other: Pain TECHNIQUE: Imaging protocol: Radiologic exam of the chest. Views: 1 view. COMPARISON: CR XR CHEST 2V 09/20/2021 3:29 PM FINDINGS: Limitations: Radiographic technique - mild. Suboptimal positioning. Lungs: No definite consolidation. Pleural spaces: No significant pleural effusion. No pneumothorax. Heart/Mediastinum: No cardiomegaly. Atherosclerosis of thoracic aorta. Bones/joints: LEFT shoulder arthroplasty. Soft tissues: Unremarkable. IMPRESSION: No definite acute cardiopulmonary disease.
--- NOTE | 2024-09-29 20:42 | CT_ITS ---
PROCEDURE INFORMATION: Exam: CT Head Without Contrast Exam date and time: 09/29/2024 9:04 PM Age: 74 years old Clinical indication: Injury or trauma; Fall; Other: Pain TECHNIQUE: Imaging protocol: Computed tomography of the head without contrast. Radiation optimization: All CT scans at this facility use at least one of these dose optimization techniques: automated exposure control; mA and/or kV adjustment per patient size (includes targeted exams where dose is matched to clinical indication); or iterative reconstruction. COMPARISON: MR HEAD/BRAIN WO CON 08/02/2022 4:37 PM FINDINGS: Brain: No evidence for intracranial hemorrhage, mass lesions or acute stroke. Intracranial vascular calcifications. Mild small vessel ischemic change in the periventricular white matter. Cerebral ventricles: No ventriculomegaly. Pituitary gland and sella: Negative Paranasal sinuses: Mild partial opacification ethmoid air cells. Mild mucosal thickening frontal sinus. Mastoid air cells: Visualized mastoid air cells are well aerated. Orbital cavities: Bilateral cataract extractions. Parotid and submandibular glands: Negative Bones: Unremarkable. No acute fracture. Soft tissues: Small left posterior parietal scalp hematoma. Vasculature: Negative. Other findings: Mild generalized atrophy. IMPRESSION: 1. Small left posterior parietal scalp hematoma. 2. No evidence for intracranial hemorrhage, mass lesions or acute stroke. 3. Intracranial vascular calcifications. 4. Mild generalized atrophy. 5. Mild small vessel ischemic change in the periventricular white matter.
--- NOTE | 2024-09-29 20:57 | HMH.EDGENADL ---
Discharge Plan Disposition Patient Disposition: Home, Self-Care Chief Complaint: Fall Prescriptions Prescriptions: No Action glimepiride 1 mg tablet See Rx Instructions .ROUTE .COMPLEX Qty: 90 1RF Dose Instruction: TAKE 1 TABLET BY MOUTH IN THE MORNING Rx Instructions: TAKE 1 TABLET BY MOUTH IN THE MORNING lisinopril 40 mg tablet 40 mg PO DAILY Qty: 90 1RF lovastatin 40 mg tablet See Rx Instructions .ROUTE .COMPLEX Qty: 90 1RF Dose Instruction: Take 1 tablet by mouth once daily Rx Instructions: Take 1 tablet by mouth once daily methylprednisolone 4 mg Tablets,Dose Pack 4 mg PO DIRECTED 6 Days Qty: 21 0RF Rx Instructions: Take 1 pack as directed for 6 days Referrals Follow up/Referrals: Jefe Ruiz MD [Primary Care Provider] - See instructions Activity Restrictions/Add. Instructions Additional Instructions/Restrictions: At this time it was felt you are safe to be discharged home. If new or worsening symptoms please do not hesitate to return the emergency department. Please follow-up with your family doctor in the next week as discussed. Clinical Impressions Clinical Impression: Fall, Hematoma of scalp, Hip pain Print Language Print Language: Fijian Discharge ED Provider: Quoc [facility] Adult HPI <Idris Vann ([facility]), [employer] - Last Filed: 09/29/24 21:14> General Chief complaint: Fall Stated complaint: AO 09-29 fell today Time Seen by Provider: 09/29/24 20:42 Mode of Arrival: Wheelchair Source of Information: Patient and Relative Limitations: No Limitations Description of Symptoms (Recalled from ER Triage Doc. by RN): Pt has fallen x 2 today Seen at [facility] this morning and had UA which was negative. This evening fell and hit head on concrete at 1999 no LOC. History of Present Illness HPI narrative: 74-year-old female presents for follow hitting head without loss of consciousness, and left hip. Daughter says she was seen earlier today in the [facility] for complaints of her left leg giving out. Daughter says she was in the kitchen cooking when her mom was walking back the hallway and fell. Daughter states about 20 minutes ago she was walking out the front door and fell again striking head and hip on the concrete. Patient states she does not feel dizzy. Patient states her legs just feel weak and they are giving out on her. Related Data Previous Rx's ?Medication ?Instructions ?Recorded glimepiride 1 mg tablet See Rx Instructions .Route 07/19/24 .COMPLEX #90 tabs lisinopril 40 mg tablet 40 mg PO DAILY High blood pressure 07/19/24 #90 tabs lovastatin 40 mg tablet See Rx Instructions .Route 07/20/24 .COMPLEX #90 tabs methylprednisolone 4 mg tablets in 4 mg PO DIRECTED 6 days #21 tabs 09/29/24 a dose pack Allergies Allergy/AdvReac Type Severity Reaction Status Date / Time ciprofloxacin (CIPROFLOXACIN) Allergy Mild Verified 04/10/24 06:56 PFSH <[facility] [employer] - Last Filed: 09/29/24 21:14> PFSH Disclaimer: The information contained in this section may have been updated after the patient was seen, as this information can be updated by other users. Medical History , [employer]) Severe sleep apnea B12 deficiency Memory loss Encephalopathy Closed fracture of right hip Diabetes mellitus Hypertension Rotator cuff tear arthropathy of left shoulder Hyperlipidemia Surgical History , [employer]) Status post reverse total replacement of left shoulder Family History , [employer]) Cancer Stroke Social History , [employer]) Smoking Status: Never smoker alcohol intake: never counseling provided: provider counseling substance use type: denies use current occupational status: unemployed and other household members: family housing: house caffeine: Yes Other Medical History Have you received the Flu Vaccine for this season: No Have you received the Pneumonia Vaccine: No <[facility] [employer] - Last Filed: 09/29/24 21:14> ROS Obtained: Yes Systems reviewed as appropriate & no additional complaints except as documented Physical Exam <[facility] [employer] - Last Filed: 09/29/24 21:14> General General appearance: alert and in no apparent distress Expanded Head Exam Head image: 1. Tender Eye Eye exam: Present normal appearance and PERRL ENT ENT exam: Present normal exam Neck Neck exam: Present normal inspection Expanded Neck Exam Comment: Placed in c-collar Respiratory Respiratory exam: Present normal lung sounds bilaterally Cardiovascular Cardiovascular exam: Present regular rate and normal rhythm Abdominal Exam Abdominal exam: Present soft and normal bowel sounds Extremities Exam Extremities exam: Present normal inspection and tenderness (Left hip) Neurological Exam Neurological exam: Present alert, oriented X3 and CN II-XII intact Skin Skin exam: Present warm and intact Medical Decision Making <Idris Vann ([facility]), [employer] - Last Filed: 09/29/24 21:14> Medical Records Screening: Per USPSTF and CDC recommendations, given the prevalence of disease in our region, it is our hospital?s policy to screen for HIV and viral Hepatitis for all patients aged 18 and over and those with ongoing risk factors. Carlos Inquiry Pt receiving controlled substance: No Vital Signs: 09/29/24 20:41 09/29/24 21:37 Temperature 98.4 F Temperature Source Oral Pulse Rate 91 H Pulse Rate [Right Brachial] 117 H Respiratory Rate 20 Blood Pressure 133/57 L Blood Pressure [Right Arm] 164/78 H Blood Pressure Mean [Right Arm] 106 Blood Pressure Source [Right Arm] Manual Cuff/ Auscultation 02 Sat by Pulse Oximetry 98 94 L Oxygen Delivery Method Room Air Lab Data Lab Results 09/29/24 21:10: WBC 13.8 H, RBC 4.52, Hgb 14.2, Hct 43.1, MCV 95.5, MCH 31.5 H, MCHC 33.0, RDW 13.2, Plt Count 254, MPV 7.9, Neut % (Auto) 92.2 H, Lymph % (Auto) 4.1 L, Bacon % (Auto) 2.1, Eos % (Auto) 1.3, Baso % (Auto) 0.4, Neut # (Auto) 12.7 H, Lymph # (Auto) 0.6 L, Bacon # (Auto) 0.3, Eos # (Auto) 0.2, Baso # (Auto) 0.1, Sodium 139, Potassium 4.5, Chloride 107, Carbon Dioxide 23, Anion Gap 13.5, BUN 23 H, Creatinine 1.20 H, Estimated Creat Clear 54, Estimated GFR 44 L, Est GFR ( Amer) 53 L, Glucose 368 H, Calcium 9.8, Total Bilirubin 0.6, AST 42 H, ALT 28, Alkaline Phosphatase 111, Total Protein 6.8, Albumin 4.1, Globulin 2.7, Albumin/Globulin Ratio 1.5 09/29/24 21:23: Urine Color Yellow, Urine Appearance Slightly cloudy, Urine pH 6.0, Ur Specific [place] >= 1.030, Urine Protein 1+ A, Urine Glucose (UA) 2+, Urine Ketones Trace, Urine Blood Trace-i, Urine Nitrate Negative, Urine Bilirubin Negative, Urine Urobilinogen 0.2, Ur Leukocyte Esterase 1+ A, Urine RBC Occasional, Urine WBC 5-10, Ur Squamous Epith Cells 3-5, Urine Bacteria Trace 09/29/24 21:10 09/29/24 21:10 Orders (Tests/Meds): ED MEDICATIONS Discontinued Medications Generic Name Dose Route Start Last Admin Trade Name Freq PRN Reason Stop Dose Admin Acetaminophen 1,000 mg 09/29/24 20:54 09/29/24 21:00 Acetaminophen 500mg Tab PO 09/29/24 20:55 1,000 mg ONCE ONE Administration Methocarbamol 1,000 mg 09/29/24 20:55 09/29/24 21:00 Methocarbamol 500mg Tablet PO 09/29/24 20:56 1,000 mg ONCE ONE Administration ORDERS Category Date Time Status CT cervical spine wo con Stat Cat Scan 09/29/24 20:[address] head/brain wo con Stat Cat Scan 09/29/24 20:42 Completed Chest XR -- portable [XR chest portable] Stat Exams 09/29/24 20:42 Completed XR hip LT 2-3V w/pelvis Stat Exams 09/29/24 20:42 Completed CBC w/Auto Diff [Complete Blood Count Auto Diff] Stat Lab 09/29/24 21:10 Results CMP [Comprehensive Metabolic Panel] Stat Lab 09/29/24 21:10 Completed HIV (1&2) Antibody Rapid Stat Lab 09/29/24 21:10 Received Hep C Ab with Reflex to RNA Stat Lab 09/29/24 21:10 Received Urinalysis-Acute [Urinalysis and Microscopic] Stat Lab 09/29/24 21:23 Completed <Quoc Oviedo MD - Last Filed: 09/29/24 22:09> Vital Signs: 09/29/24 20:41 09/29/24 21:37 Temperature 98.4 F Temperature Source Oral Pulse Rate 91 H Pulse Rate [Right Brachial] 117 H Respiratory Rate 20 Blood Pressure 133/57 L Blood Pressure [Right Arm] 164/78 H Blood Pressure Mean [Right Arm] 106 Blood Pressure Source [Right Arm] Manual Cuff/ Auscultation 02 Sat by Pulse Oximetry 98 94 L Oxygen Delivery Method Room Air Lab Data Lab Results 09/29/24 21:10: WBC 13.8 H, RBC 4.52, Hgb 14.2, Hct 43.1, MCV 95.5, MCH 31.5 H, MCHC 33.0, RDW 13.2, Plt Count 254, MPV 7.9, Neut % (Auto) 92.2 H, Lymph % (Auto) 4.1 L, Bacon % (Auto) 2.1, Eos % (Auto) 1.3, Baso % (Auto) 0.4, Neut # (Auto) 12.7 H, Lymph # (Auto) 0.6 L, Bacon # (Auto) 0.3, Eos # (Auto) 0.2, Baso # (Auto) 0.1, Sodium 139, Potassium 4.5, Chloride 107, Carbon Dioxide 23, Anion Gap 13.5, BUN 23 H, Creatinine 1.20 H, Estimated Creat Clear 54, Estimated GFR 44 L, Est GFR ( Amer) 53 L, Glucose 368 H, Calcium 9.8, Total Bilirubin 0.6, AST 42 H, ALT 28, Alkaline Phosphatase 111, Total Protein 6.8, Albumin 4.1, Globulin 2.7, Albumin/Globulin Ratio 1.5 09/29/24 21:23: Urine Color Yellow, Urine Appearance Slightly cloudy, Urine pH 6.0, Ur Specific [place] >= 1.030, Urine Protein 1+ A, Urine Glucose (UA) 2+, Urine Ketones Trace, Urine Blood Trace-i, Urine Nitrate Negative, Urine Bilirubin Negative, Urine Urobilinogen 0.2, Ur Leukocyte Esterase 1+ A, Urine RBC Occasional, Urine WBC 5-10, Ur Squamous Epith Cells 3-5, Urine Bacteria Trace Orders (Tests/Meds): ED MEDICATIONS Discontinued Medications Generic Name Dose Route Start Last Admin Trade Name Freq PRN Reason Stop Dose Admin Acetaminophen 1,000 mg 09/29/24 20:54 09/29/24 21:00 Acetaminophen 500mg Tab PO 09/29/24 20:55 1,000 mg ONCE ONE Administration Methocarbamol 1,000 mg 09/29/24 20:55 09/29/24 21:00 Methocarbamol 500mg Tablet PO 09/29/24 20:56 1,000 mg ONCE ONE Administration ORDERS Category Date Time Status CT cervical spine wo con Stat Cat Scan 09/29/24 20:[address] head/brain wo con Stat Cat Scan 09/29/24 20:42 Completed Chest XR -- portable [XR chest portable] Stat Exams 09/29/24 20:42 Completed XR hip LT 2-3V w/pelvis Stat Exams 09/29/24 20:42 Completed CBC w/Auto Diff [Complete Blood Count Auto Diff] Stat Lab 09/29/24 21:10 Results CMP [Comprehensive Metabolic Panel] Stat Lab 09/29/24 21:10 Completed HIV (1&2) Antibody Rapid Stat Lab 09/29/24 21:10 Received Hep C Ab with Reflex to RNA Stat Lab 09/29/24 21:10 Received Urinalysis-Acute [Urinalysis and Microscopic] Stat Lab 09/29/24 21:23 Completed Medical Decision Narrative: In summary patient is 74-year-old female not on anticoagulation presents emergency department for evaluation traumatic injury sustained in a fall. Patient is hemodynamically stable nontoxic-appearing upon arrival, afebrile. Differential includes traumatic injuries to the head, neck, hip. C-spine precautions will be initiated. Workup be conducted with hematologic labs plain films noncontrasted CT scan imaging. Initial inventions include Tylenol and methocarbamol. Initial workup reviewed by me, mild leukocytosis, no anemia, no thrombocytopenia. Urinalysis interpreted by me and not consistent with infection. Noncontrasted CT scan of the head informally interpreted by me no acute large intracranial hemorrhage. Formal read shows small left posterior parietal scalp hematoma no acute intracranial abnormality intracranial vascular calcifications incidentally found with small vessel chronic ischemic disease. CT cervical spine consistent with arthritis. Patient underwent trial around the emergency room with a walker and was successful. Family at bedside states they have a walker at home that she can use. She will follow-up with her family doctor on outpatient basis for continued evaluation possible rehabilitation referral. Critical Care <Idris Vann ([facility]), [employer] - Last Filed: 09/29/24 21:14> Critical Care Time Critical Care Time: No
[2024-09-29] MEDS: METHOCARBAMOL 500MG TABLET 1000 MG PO (21:00)
[2024-09-29] MEDS: ACETAMINOPHEN 500MG TAB 1000 MG PO (21:00)
[2024-09-29 21:27] LABS: Microscopic, Urine URINE MICROSCOPIC (MICROSCOPIC)
[2024-09-29 21:32] LABS: Bilirubin,Urine Negative (Negative); Blood, Urine TRACE-I (Negative); Color,Urine YELLOW (Yellow); Glucose,Urine (UA) 2+ (Negative); Ketones,Urine TRACE (Negative); Leukocyte Esterase,Urine 1+ (Negative); Nitrate,Urine Negative (Negative); Protein,Urine 1+ (Negative); Specific Gravity, Urine >= 1.030 (1.005-1.030); Urobilinogen,Urine 0.2 EU/dl (0.2)
[2024-09-29 21:37] VITALS: BP 133/57; PULSE 91; O2SAT 94
[2024-09-29 21:42] LABS: Basophils # 0.1 K/mm3 (0-0.2); Basophils % 0.4 % (0.1-2.0); Eosinophils # 0.2 K/mm3 (0.0-0.4); Eosinophils % 1.3 % (0.1-12.0); Hematocrit 43.1 % (37.0-47.0); Hemoglobin 14.2 g/dL (12.2-16.2); Lymphocytes # 0.6 K/mm3 (0.7-4.5); Lymphocytes % 4.1 % (10-50); Mean Corpuscular Hemoglobin 31.5 pg (27.0-31.2); Mean Corpuscular Volume 95.5 fl (81-99); Mean Platelet Volume 7.9 fl (7.4-10.4); Monocytes # 0.3 K/mm3 (0.1-1.0); Monocytes % 2.1 % (1.7-9.3); Neutrophils # 12.7 K/mm3 (1.8-7.8); Neutrophils % 92.2 % (37.0-80.0); Platelet Count 254 K/mm3 (142-424); Red Blood Count 4.52 M/mm3 (4.20-5.40); Red Cell Distribution Width 13.2 % (11.5-17.5); White Blood Count 13.8 K/mm3 (4.8-10.8)
[2024-09-29 21:43] LABS: MANUAL DIFFERENTIAL MANUAL DIFFERENTIAL (MANUAL DIFF)
[2024-09-29 21:48] LABS: Appearance,Urine Slightly Cloudy (Clear)
[2024-09-29 21:50] LABS: Bacteria,Urine Trace /lpf; RBC,Urine Occasional #/hpf (0-3)
[2024-09-29 21:53] LABS: Albumin Level 4.1 g/dl (3.5-5.0); Chloride 107 mmol/L (98-107); Potassium 4.5 mmoL/L (3.5-5.1); Sodium 139 mmol/L (136-145)
[2024-09-29 21:56] LABS: Alanine Aminotransferase 28 U/L (12-78); Albumin/Globulin Ratio 1.5 (1.1-1.8); Alkaline Phosphatase 111 U/L (38-126); Anion Gap 13.5 mEq/L (5-15); Aspartate Amino Transferase 42 U/L (14-36); Bilirubin,Total 0.6 mg/dl (0.2-1.3); Blood Urea Nitrogen 23 mg/dl (7-17); Calcium 9.8 mg/dl (8.4-10.2); Carbon Dioxide 23 mmol/L (22.0-30.0); Creatinine Clearance Estimated 54 mL/min (50-200); Estimated Glomerular Filt Rate 44 ml/min (>60); GFR (African American) 53 ML/MIN (>60); Globulin 2.7 g/dL (1.3-3.2); Glucose 368 mg/dl (74-100); Total Protein,Serum 6.8 g/dl (6.3-8.2)
[2024-09-29 22:17] LABS: Eosinophils % 1 % (0-3); HIV (1&2) Antibody Rapid NONREACTIVE (NONREACTIVE); Lymphocytes % 8 % (10-50); Monocytes % 2 % (2-9); Neutrophils % 89 % (42-76); Platelet Estimate Slight Increase; Stomatocytes 1+; Total Cells Counted 100
[2024-09-29 22:20] VITALS: BP 152/51; PULSE 87; RESP 18; TEMP 36.6; O2SAT 98
[2024-10-02 05:11] LABS: HCV Ab Non Reactive (Non Reactive)
== END 2024-09-29 22:20 | disposition home or self-care (01) ==
PROVIDERS: Nurse Practitioner Family; Emergency Provider Emergency Medicine; PCP Internal Medicine
DX: E11.65 Type 2 diabetes mellitus with hyperglycemia (principal); Z79.899 Other long term (current) drug therapy; S00.03XA Contusion of scalp, initial encounter; W01.0XXA Fall on same level from slipping, tripping and stumbling without subsequent striking against object, initial encounter; Z91.81 History of falling; Y92.018 Other place in single-family (private) house as the place of occurrence of the external cause; R29.6 Repeated falls; I10 Essential (primary) hypertension
CPT/HCPCS: 70450; 71045; 72125; 73502; 80053; 81001; 81003; 85007; 85025; 85027; 86803; 87086; 87088; 87186; 87389; 99284; J1100; J1885

== ENCOUNTER 2024-10-02 14:55 | Outpatient (CLI) | payer MEDICARE, SELFPAY ==
--- NOTE | 2024-10-02 15:01 | XR_ITS ---
FINAL REPORT CLINICAL HISTORY: Left knee pain, falls COMPARISON: None FINDINGS: Three views of the left knee reveal no evidence of fracture or dislocation. The bony alignment is normal. Mild degenerative changes are present. There is no evidence of joint effusion. No localized soft tissue abnormality is seen. IMPRESSION: Mild degenerative change, without acute bony abnormality. Reviewed, Interpreted and Dictated by Jaime Banegas III, MD Transcribed by Arlin Phoenix Authenticated and [facility]
== END 2024-10-02 23:59 | disposition home or self-care (01) ==
LOC: RAD 14:59
PROVIDERS: PCP Internal Medicine; Visit Provider Internal Medicine
DX: M25.562 Pain in left knee (principal)
CPT/HCPCS: 73562

== ENCOUNTER 2024-12-21 17:01 | Emergency (ER) | payer MEDICARE, SELFPAY ==
--- NOTE | 2024-12-21 16:58 | ECG_ITS ---
APPROVED REPORT Exam: Resting ECG HR:69 bpm ECG Measurements Heart Rate 69 AXES IL 199 P 47 QRSd 93 QRS 61 QT 371 T 68 QTc 390 Conclusion SINUS RHYTHM NORMAL ECG UNCONFIRMED REPORT Electronically signed by : Jose Carlos Cortes, 12/21/2024 23:20:51
[2024-12-21 17:02] VITALS: BP 147/82; PULSE 77; RESP 13; TEMP 37; O2SAT 100; BMI 26.5
--- NOTE | 2024-12-21 17:25 | XR_ITS ---
PROCEDURE INFORMATION: Exam: XR Chest Exam date and time: 12/21/2024 5:37 PM Age: 74 years old Clinical indication: Cough; Additional info: Chest pain/cough TECHNIQUE: Imaging protocol: Radiologic exam of the chest. Views: 1 view. COMPARISON: CR XR CHEST PORTABLE 09/29/2024 9:04 PM FINDINGS: Lungs: Pleuroparenchymal scarring of the lung bases with subsegmental atelectasis is present without consolidations or pleural effusions that project above the diaphragm. Pleural spaces: Unremarkable. No pleural effusion. No pneumothorax. Heart/Mediastinum: Unremarkable. No cardiomegaly. Bones/joints: Postsurgical changes compatible with left shoulder arthroplasty. IMPRESSION: Pleuroparenchymal scarring of the lung bases with subsegmental atelectasis is present without consolidations or pleural effusions that project above the diaphragm.
--- NOTE | 2024-12-21 17:28 | ED_ITS ---
<Statement entered by Suzan Cortes MD - 12/21/24 23:17> I was consulted by the PA, and we discussed the complexity of the problems being addressed. I approved the treatment and management plan for this patient's care in the emergency department, thus performing a substantive portion of the medical decision making. Suzan Cortes MD, SE, FACEP Discharge Plan Disposition Patient Disposition: Home, Self-Care Condition: Good Prescriptions Prescriptions: New glbpyzvoqlqkwap-fxwsvqqfi-FN [Bromfed DM] 2-30-10 mg/5 mL syrup 5 ml PO Q4H PRN (Reason: sinus symptoms) Qty: 118 0RF No Action diclofenac sodium [Arthritis Pain (diclofenac)] 1 % gel 4 g topical QID PRN (Reason: Arthritis pain) Qty: 100 5RF Rx Instructions: apply to to left knee 4 times a day as needed for pain. glimepiride 1 mg tablet See Rx Instructions .ROUTE .COMPLEX Qty: 90 1RF Dose Instruction: TAKE 1 TABLET BY MOUTH IN THE MORNING Rx Instructions: TAKE 1 TABLET BY MOUTH IN THE MORNING lisinopril 40 mg tablet 40 mg PO DAILY Qty: 90 1RF lovastatin 40 mg tablet See Rx Instructions .ROUTE .COMPLEX Qty: 90 1RF Dose Instruction: Take 1 tablet by mouth once daily Rx Instructions: Take 1 tablet by mouth once daily memantine 5 mg tablet See Rx Instructions .ROUTE .COMPLEX Qty: 180 1RF Dose Instruction: Take 1 tablet by mouth twice daily Rx Instructions: Take 1 tablet by mouth twice daily promethazine 12.5 mg tablet See Rx Instructions PO Q6H PRN (Reason: nausea and vomiting) Qty: 20 0RF Rx Instructions: One half or 1 tablet orally every 6 hours PRN; methylprednisolone 4 mg Tablets,Dose Pack 4 mg PO DIRECTED 6 Days Qty: 21 0RF Rx Instructions: Take 1 pack as directed for 6 days cephalexin 500 mg capsule 500 mg PO BID 5 Days Qty: 10 0RF Referrals Follow up/Referrals: Jefe Ruiz MD [Primary Care Provider] - See instructions Activity Restrictions/Add. Instructions Additional Instructions/Restrictions: Please continue taking Tylenol alternating with Motrin for your symptoms. I have sent Bromfed into your pharmacy to help with the cough. If you have continued new or worsening signs or symptoms follow-up with your PCP sooner or return to the ER. Clinical Impressions Clinical Impression: Thrombocytopenia, Influenza A Chest pain Qualifiers: Chest pain type: unspecified Qualified Code(s): R07.9 - Chest pain, unspecified Leukopenia Qualifiers: Leukopenia type: unspecified Qualified Code(s): D72.819 - Decreased white blood cell count, unspecified Print Language Print Language: [place] Discharge ED Provider: Suzan Cortes General Adult HPI General Chief complaint: Chest Pain Stated complaint: Chest Pain Time Seen by Provider: 12/21/24 17:28 Mode of Arrival: Ambulatory Source of Information: Patient Limitations: No Limitations Description of Symptoms (Recalled from ER Triage Doc. by RN): pt presents to ED with c/o chest pain. pt reports chest pain intermittent for the past few days pt reports pain in chest worse with cough and deep inspiration. pts daughter at bedside reports that she got home from work around 1630 and pt complained of chest pain and daughter brought pt to ED. History of Present Illness HPI narrative: Patient presents for evaluation of chest pain. Patient's daughter arrived home from work around 430 and stated that her mother told her that she was having some chest pain. Unfortunately patient has dementia and has good conversations but is sometimes vague with her symptomology. She denies chest pain currently in the emergency department also denies shortness of breath fever chills hemoptysis hematochezia melena nausea vomiting diarrhea. She cannot tell us when it started how long it lasted but does report that it occurred in the left side of her upper chest. She does not have a cardiac history or history of cardiovascular disease. Related Data Previous Rx's ?Medication ?Instructions ?Recorded glimepiride 1 mg tablet See Rx Instructions .Route 07/19/24 .COMPLEX #90 tabs lisinopril 40 mg tablet 40 mg PO DAILY High blood pressure 07/19/24 #90 tabs lovastatin 40 mg tablet See Rx Instructions .Route 07/20/24 .COMPLEX #90 tabs methylprednisolone 4 mg tablets in 4 mg PO DIRECTED 6 days #21 tabs 09/29/24 a dose pack cephalexin 500 mg capsule 500 mg PO BID 5 days #10 caps 10/01/24 diclofenac sodium 1 % topical gel 4 g topical QID PRN Arthritis pain 10/02/24 (Arthritis Pain (diclofenac)) #100 grams memantine 5 mg tablet See Rx Instructions .Route 10/09/24 .COMPLEX #180 tabs promethazine 12.5 mg tablet See Rx Instructions PO Q6H PRN 12/17/24 nausea and vomiting #20 tabs vofmxpdeamsbxkf-amutsrjmrnvsauq-HY 5 ml PO Q4H PRN sinus symptoms 12/21/24 2 mg-30 mg-10 mg/5 mL oral syrup #118 mL (Bromfed DM) Allergies Allergy/AdvReac Type Severity Reaction Status Date / Time ciprofloxacin (CIPROFLOXACIN) Allergy Mild Verified 12/15/24 17:15 [facility] Disclaimer: The information contained in this section may have been updated after the patient was seen, as this information can be updated by other users. Medical History (Updated 12/21/24 @ 18:44 by SAMANTHA Jay) Viral upper respiratory infection Severe sleep apnea B12 deficiency Memory loss Encephalopathy Closed fracture of right hip Diabetes mellitus Hypertension Rotator cuff tear arthropathy of left shoulder Hyperlipidemia Surgical History Status post reverse total replacement of left shoulder Family History Other Cancer Stroke Social History Smoking Status: Never smoker alcohol intake: never counseling provided: provider counseling substance use type: denies use current occupational status: unemployed and other Travel in the last 8 weeks: None household members: family housing: house caffeine: Yes Have you lived/traveled outside [place] in past 30 days?: No Contact w/someone who lives/traveled outside US past 30 days?: No Exposure to someone with infectious disease in past 14 days?: No Do you have a fever (greater than 100.4 F or 38 C)?: No Have you tested positive for COVID-19: No Exposed to someone with COVID-19 in past 14 days?: No Do you have a sore throat?: No Do you have a cough?: No Do you have any weakness?: No Do you have any diarrhea?: No Are you experiencing any unusual bleeding?: No Do you have any muscle aches/pain?: No Do you have any abdominal pain?: No Are you experiencing loss of taste or smell?: No Other Medical History Have you received the Flu Vaccine for this season: No Have you received the Pneumonia Vaccine: No ROS Obtained: Yes Systems reviewed as appropriate & no additional complaints except as documented Physical Exam General General appearance: alert and in no apparent distress Respiratory Respiratory exam: Present normal lung sounds bilaterally Cardiovascular Cardiovascular exam: Present regular rate Neurological Exam Neurological exam: Present alert; Absent oriented X3 (Patient is pleasantly confused) Medical Decision Making Medical Records Medical records reviewed: Yes I reviewed the patient's medical records. Screening: Per USPSTF and CDC recommendations, given the prevalence of disease in our region, it is our hospital?s policy to screen for HIV and viral Hepatitis for all patients aged 18 and over and those with ongoing risk factors. Carlos Inquiry Pt receiving controlled substance: No Vital Signs: 12/21/24 17:02 12/21/24 17:30 12/21/24 18:00 Temperature 98.6 F Temperature Source Oral Pulse Rate 85 62 Pulse Rate [Left Radial] 77 Respiratory Rate 13 15 12 Blood Pressure 138/80 129/64 Blood Pressure [Right Arm] 147/82 H Blood Pressure Mean [Right Arm] 103 Blood Pressure Source 02 Sat by Pulse Oximetry 100 97 97 Oxygen Delivery Method Room Air Room Air Room Air 12/21/24 18:52 Temperature 98.6 F Temperature Source Oral Pulse Rate 77 Pulse Rate [Left Radial] Respiratory Rate 18 Blood Pressure 126/70 Blood Pressure [Right Arm] Blood Pressure Mean [Right Arm] Blood Pressure Source Automatic Cuff 02 Sat by Pulse Oximetry Oxygen Delivery Method Room Air Lab Data Lab results reviewed: Yes I reviewed the patient's lab results. Lab Results 12/21/24 17:09: WBC 3.3 L, RBC 4.06 L, Hgb 12.8, Hct 38.4, MCV 94.6, MCH 31.5 H, MCHC 33.3, RDW 12.8, Plt Count 124 L, MPV 10.4, Neut % (Auto) 33.0 L, Lymph % (Auto) 57.3 H, [place] % (Auto) 8.5, Eos % (Auto) 0.6, Baso % (Auto) 0.6, Neut # (Auto) 1.1 L, Lymph # (Auto) 1.9, [place] # (Auto) 0.3, Eos # (Auto) 0.0, Baso # (Auto) 0.0, Total Counted 100, Neutrophils % (Manual) 45, Lymphocytes % (Manual) 50, Monocytes % (Manual) 4, Basophils % (Manual) 1.0, Platelet Estimate Normal, RBC Morphology Normal, Sodium 140, Potassium 4.3, Chloride 103, Carbon Dioxide 30, Anion Gap 11.3, BUN 14, Creatinine 0.90, Estimated Creat Clear 54, Estimated GFR 61, Est GFR ( Amer) 74, Glucose 97, Calcium 8.4, Total Bilirubin 0.2, AST 37 H, ALT 18, Alkaline Phosphatase 92, Troponin I < 0.01, NT-Pro-B Natriuret Pep 54.9, Total Protein 6.6, Albumin 4.2, Globulin 2.4, Albumin/Globulin Ratio 1.8 12/21/24 18:06: SARS-CoV-2 (PCR) Not detected, Influenza A Untype (PCR) Detected A, Influenza Type B (PCR) Not detected 12/21/24 17:09 12/21/24 17:09 Orders (Tests/Meds): ED MEDICATIONS Discontinued Medications Generic Name Dose Route Start Last Admin Trade Name Freq PRN Reason Stop Dose Admin Aspirin 324 mg 12/21/24 17:25 12/21/24 17:34 Aspirin 81mg Chewable Tablet PO 12/21/24 17:26 324 mg ONCE ONE Administration Nitroglycerin 0.4 mg 12/21/24 17:25 Nitroglycerin 0.4mg Sl Tablet SL 12/22/24 17:25 Q5MINP PRN Chest Pain ORDERS Category Date Time Status XR chest portable Stat Exams 12/21/24 17:25 Completed BNP [NT Pro Brain Natriuretic Pep.] Stat Lab 12/21/24 17:09 Completed Complete Blood Count Auto Diff Stat Lab 12/21/24 17:09 Completed Comprehensive Metabolic Panel Stat Lab 12/21/24 17:09 Completed Rapid PCR Covid and Flu A/B Stat Lab 12/21/24 18:06 Completed Troponin I Stat Lab 12/21/24 17:09 Completed HEART Score History (anamnesis): Slightly suspicious ECG: Normal Age: >65 years Risk factors: 3 or more risk factors Troponin: </= normal limit HEART Score: 4 Medical Decision Narrative: In summary patient is a 74-year-old female who presents to the emergency department for evaluation of chest pain. Patient is hemodynamically stable upon arrival, afebrile. Physical exam is remarkable for a very pleasant well- nourished well-developed pleasantly confused 74-year-old female who is otherwise in no acute distress. Physical exam is remarkable for clear breath sounds without any adventitious sounds, normal heart sounds, no abdominal tenderness, patient does have some tenderness to palpation over the anterior chest wall. Given this I had a conversation with the daughter about sick exposure and daughter actually recall that she does have a relative that came in that might have been sick however patient has not been specifically complaining of any symptoms it is possible that she could have gotten something from her.. Differential diagnosis includes ACS versus infection versus pneumonia versus gastroenteritis etc. Initial workup will be conducted with hematologic labs twelve-lead EKG respiratory panel plain film chest x-ray. Initial interventions include Tylenol Toradol for now. Initial workup reviewed by me shows that patient actually has leukopenia with a white count of 3.3 and slight thrombocytopenia with a platelet count of 124 with an absolute neutrophil count of 1.1 and absolute lymphocyte count of 1.9 the remainder of her hematologic labs are nonactionable including an negative undetectable troponin. My informal interpretation of her plain film chest x-ray shows no acute processes properly radiology read. Patient was however influenza A positive. Upon repeat evaluation patient is anxious to go home and has had no recurrence of her symptoms here I did ask her if she was having chest pain with coughing and she said of course yes. Given that I had a shared decision-making discussion with the patient's daughter about patient's AKHTAR findings and results, via patient directed decision making and discharge I advised that the likelihood was low that this was ACS given initial negative troponin and normal EKG but there was diagnostic uncertainty without a second troponin but I left the decision whether or not she felt comfortable and waiting for second troponin or going home with the knowledge that we do not have full certainty that it was not ACS but less likely. Patient's daughter felt comfortable and not doing a second troponin given what we know thus far which she is having chest pain with coughing and is flu positive. I have given them a strict return precautions sent in [facility] to help with her coughing and close follow-up with PCP as an outpatient Critical Care Critical Care Time Critical Care Time: No
[2024-12-21 17:30] VITALS: BP 138/80; PULSE 85; RESP 15; O2SAT 97
[2024-12-21 17:33] LABS: Basophils % 0.6 % (0.1-2.0); Eosinophils % 0.6 % (0.1-12.0); Hematocrit 38.4 % (37.0-47.0); Hemoglobin 12.8 g/dL (12.2-16.2); Lymphocytes # 1.9 K/mm3 (0.7-4.5); Lymphocytes % 57.3 % (10-50); Mean Corpuscular HGB Conc 33.3 g/dL (31.8-35.4); Mean Corpuscular Hemoglobin 31.5 pg (27.0-31.2); Mean Corpuscular Volume 94.6 fl (81-99); Mean Platelet Volume 10.4 fl (7.4-10.4); Monocytes # 0.3 K/mm3 (0.1-1.0); Monocytes % 8.5 % (1.7-9.3); Neutrophils # 1.1 K/mm3 (1.8-7.8); Platelet Count 124 K/mm3 (142-424); Red Blood Count 4.06 M/mm3 (4.20-5.40); Red Cell Distribution Width 12.8 % (11.5-17.5); White Blood Count 3.3 K/mm3 (4.8-10.8)
[2024-12-21] MEDS: ASPIRIN 81MG CHEWABLE TABLET 324 MG PO (17:34)
[2024-12-21 17:36] LABS: Albumin Level 4.2 g/dl (3.5-5.0); Chloride 103 mmol/L (98-107); Potassium 4.3 mmoL/L (3.5-5.1); Sodium 140 mmol/L (136-145)
[2024-12-21 17:39] LABS: Alanine Aminotransferase 18 U/L (12-78); Albumin/Globulin Ratio 1.8 (1.1-1.8); Alkaline Phosphatase 92 U/L (38-126); Anion Gap 11.3 mEq/L (5-15); Aspartate Amino Transferase 37 U/L (14-36); Bilirubin,Total 0.2 mg/dl (0.2-1.3); Blood Urea Nitrogen 14 mg/dl (7-17); Calcium 8.4 mg/dl (8.4-10.2); Carbon Dioxide 30 mmol/L (22.0-30.0); Creatinine Clearance Estimated 54 mL/min (50-200); Estimated Glomerular Filt Rate 61 ml/min (>60); GFR (African American) 74 ML/MIN (>60); Globulin 2.4 g/dL (1.3-3.2); Glucose 97 mg/dl (74-100); Total Protein,Serum 6.6 g/dl (6.3-8.2)
[2024-12-21 17:41] LABS: MANUAL DIFFERENTIAL MANUAL DIFFERENTIAL (MANUAL DIFF)
[2024-12-21 17:53] LABS: Troponin I < 0.01 ng/ml (0.00-0.034)
[2024-12-21 18:00] VITALS: BP 129/64; PULSE 62; RESP 12; O2SAT 97
[2024-12-21 18:03] LABS: Lymphocytes % 50 % (10-50); Monocytes % 4 % (2-9); Neutrophils % 45 % (42-76); Platelet Estimate Normal; RBC Morphology Normal; Total Cells Counted 100
[2024-12-21 18:09] LABS: Coronavirus 19, PCR Not Detected (NotDetected); Influenza B, PCR Not Detected (NotDetected)
[2024-12-21 18:21] LABS: NT Pro Brain Natriuretic Pep. 54.9 pg/mL (0-125)
[2024-12-21 18:37] LABS: Influenza A, PCR Detected (NotDetected)
[2024-12-21 18:52] VITALS: BP 126/70; PULSE 77; RESP 18; TEMP 37; O2SAT 98
== END 2024-12-21 18:55 | disposition home or self-care (01) ==
PROVIDERS: Physician Assistant; Emergency Provider Student in an Organized Health Care Education/Training Program; PCP Internal Medicine
DX: D69.6 Thrombocytopenia, unspecified (principal); D72.819 Decreased white blood cell count, unspecified; R07.9 Chest pain, unspecified; R05.9 Cough, unspecified; J10.1 Influenza due to other identified influenza virus with other respiratory manifestations
CPT/HCPCS: 71045; 80053; 83880; 84484; 85007; 85025; 85027; 87636; 93005; 99284

== ENCOUNTER 2025-04-14 18:22 | Emergency (ER) | payer MEDICARE, SELFPAY ==
[2025-04-14 18:30] VITALS: BP 183/80; PULSE 78; RESP 16; TEMP 36.6; O2SAT 98; BMI 27.4
--- NOTE | 2025-04-14 18:41 | XR_ITS ---
PROCEDURE INFORMATION: Exam: XR Left Shoulder Exam date and time: 04/14/2025 6:55 PM Age: 75 years old Clinical indication: Pain; Shoulder; Left; Additional info: Left shoulder pain after fall 2 weeks ago TECHNIQUE: Imaging protocol: Radiologic exam of the left shoulder. Views: 2 or more views. COMPARISON: CR XR SHOULDER LT MIN 2V 01/06/2021 2:26 PM FINDINGS: Bones/joints: Normal. Soft tissues: Normal. IMPRESSION: No acute findings.
--- NOTE | 2025-04-14 18:41 | XR_ITS ---
PROCEDURE INFORMATION: Exam: XR Left Humerus Exam date and time: 04/14/2025 6:55 PM Age: 75 years old Clinical indication: Pain; Shoulder; Left; Additional info: Left shoulder/arm pain TECHNIQUE: Imaging protocol: Radiologic exam of the left humerus. Views: 2 or more views. COMPARISON: CR XR SHOULDER LT MIN 2V 01/06/2021 2:26 PM FINDINGS: Bones/joints: Left shoulder arthroplasty. Soft tissues: Normal. IMPRESSION: Left shoulder arthroplasty.
--- NOTE | 2025-04-14 18:42 | ED_ITS ---
Discharge Plan Disposition Patient Disposition: Home, Self-Care Condition: Good Prescriptions Prescriptions: No Action ammonium lactate 12 % cream 1 applic topical BID 30 Days Qty: 385 2RF diclofenac sodium [Arthritis Pain (diclofenac)] 1 % gel 4 g topical QID PRN (Reason: Arthritis pain) Qty: 100 5RF Rx Instructions: apply to to left knee 4 times a day as needed for pain. glimepiride 1 mg tablet See Rx Instructions .ROUTE .COMPLEX Qty: 90 1RF Dose Instruction: TAKE 1 TABLET BY MOUTH IN THE MORNING Rx Instructions: TAKE 1 TABLET BY MOUTH IN THE MORNING lovastatin 40 mg tablet See Rx Instructions .ROUTE .COMPLEX Qty: 90 1RF Dose Instruction: Take 1 tablet by mouth once daily Rx Instructions: Take 1 tablet by mouth once daily memantine 5 mg tablet See Rx Instructions .ROUTE .COMPLEX Qty: 180 1RF Dose Instruction: Take 1 tablet by mouth twice daily Rx Instructions: Take 1 tablet by mouth twice daily lisinopril 40 mg tablet 40 mg PO DAILY Qty: 90 1RF promethazine 12.5 mg tablet See Rx Instructions .ROUTE .COMPLEX Qty: 20 1RF Dose Instruction: TAKE 1/2 TO 1 (ONE-HALF TO ONE) TABLET BY MOUTH EVERY 6 HOURS NEEDED FOR NAUSEA AND VOMITING Rx Instructions: TAKE 1/2 TO 1 (ONE-HALF TO ONE) TABLET BY MOUTH EVERY 6 HOURS NEEDED FOR NAUSEA AND VOMITING lvgjyislhmmshgw-yxyaczmba-EJ [Bromfed DM] 2-30-10 mg/5 mL syrup 5 ml PO Q4H PRN (Reason: sinus symptoms) Qty: 118 0RF Referrals Follow up/Referrals: Jefe Ruiz MD [Primary Care Provider, Medical] - See instructions Rogelio Posey DO [Staff Physician, Orthopedics] - See instructions Referral Note: Left shoulder pain, prior reverse shoulder repair Activity Restrictions/Add. Instructions Additional Instructions/Restrictions: Please return to the emergency department any worsening signs or symptoms. Please utilize anti-inflammatory medication such as ibuprofen Tylenol ice as needed for pain, please follow-up with orthopedic provider. Could benefit from further imaging of your shoulder as plain film x-rays today were negative for any hardware failure, fracture or dislocation of your left shoulder joint. Clinical Impressions Clinical Impression: Status post reverse arthroplasty of left shoulder Left shoulder pain Qualifiers: Chronicity: chronic Qualified Code(s): M25.512 - Pain in left shoulder Print Language Print Language: Luxembour[place] Discharge ED Provider: Kenny Brown General Adult HPI <SAMANTHA Saldana - Last Filed: 04/14/25 20:49> General Chief complaint: Extremity Injury, Upper Stated complaint: lt shoulder pain 2 weeks swollen Time Seen by Provider: 04/14/25 18:29 Mode of Arrival: Ambulatory Source of Information: Patient Description of Symptoms (Recalled from ER Triage Doc. by RN): Patient states that she has been having left shoulder pain x 2 weeks, denies injury. States she did have a rotator cuff repair she guesses about 2 years ago on that shoulder. History of Present Illness HPI narrative: 75-year-old female presents to the emergency department with left shoulder pain accompanied by her family member. Patient admits to remote fall 2 weeks ago landing on the left shoulder, denies striking the head, no LOC, not on any anticoagulant therapy. Patient denies any fever chills chest pain shortness of breath nausea vomiting constipation diarrhea no abdominal pain no urinary type symptomatology, no melena no hematochezia, no hematemesis or hemoptysis, no neck pain, no radicular type symptomatology, no numbness or tingling, no upper or lower extremity weakness, no saddle anesthesia, no urinary bladder or bowel dysfunction, patient has other past medical history consistent with remote history of status post reverse arthroplasty of the left shoulder for rotator cuff tendinopathy in 2020, vitamin B12 deficiency, dementia, T2DM, YULISSA on CPAP therapy, MDD, REYNA, hypertension, hyperlipidemia. Patient is a non-smoker denies any alcohol or drug use, initial triage vitals are unremarkable. Of note, emily maldonado at the bedside states that utilizing Tylenol and ibuprofen with some relief to the patient's symptomatology. Onset (ago): week(s) Related Data Previous Rx's ?Medication ?Instructions ?Recorded glimepiride 1 mg tablet See Rx Instructions .Route 0 07/19/24 .COMPLEX #90 tabs lovastatin 40 mg tablet See Rx Instructions .Route 0 07/20/24 .COMPLEX #90 tabs diclofenac sodium 1 % topical gel 4 g topical QID PRN Arthritis pain 10/02/24 (Arthritis Pain (diclofenac)) #100 grams memantine 5 mg tablet See Rx Instructions .Route 1 12/10/23 .COMPLEX #180 tabs bejrguiszybohiz-tshqgvsvsnqbjoh-MY 5 ml PO Q4H PRN sin us symptoms 12/21/24 2 mg-30 mg-10 mg/5 mL oral syrup #118 mL (Bromfed DM) ammonium lactate 12 % topical cream 1 applic topical B ID dry skin, 02/06/25 callus care 30 days #385 grams lisinopril 40 mg tablet 40 mg PO DAILY High blood pr essure 02/22/25 #90 tabs promethazine 12.5 mg tablet See Rx Instructions .Route 04/01/25 .COMPLEX #20 tabs Allergies Allergy/AdvReac Type Severity Reaction Status Date / Time ciprofloxacin (CIPROFLOXACIN) Allergy Mild Unknown Verified 04/14/25 18:35 allergy reaction PFS <SAMANTHA Saldana - Last Filed: 04/14/25 20:49> [facility] Disclaimer: The information contained in this section may have been updated after the patient was seen, as this information can be updated by other users. Medical History Viral upper respiratory infection Severe sleep apnea Return to CPAP, refuses treatment. B12 deficiency B12 borderline in July, homocystine elevated. Recommend further evaluation and if remains abnormal, parental replacement given neurological symptoms. Memory loss Encephalopathy Closed fracture of right hip Diabetes mellitus Hypertension Rotator cuff tear arthropathy of left shoulder Hyperlipidemia Surgical History Status post reverse total replacement of left shoulder Family History Other Cancer Stroke Social History Smoking Status: Never smoker alcohol intake: never counseling provided: provider counseling substance use type: denies use current occupational status: unemployed and other Travel in the last 8 weeks?: None household members: family housing: house caffeine: Yes Have you lived/traveled outside [place] in past 30 days?: No Contact w/someone who lives/traveled outside US past 30 days?: No Exposure to someone with infectious disease in past 14 days?: No Do you have a fever (greater than 100.4 F or 38 C)?: No Have you tested positive for COVID-19?: No Exposed to someone with COVID-19 in past 14 days?: No Do you have a sore throat?: No Do you have a cough?: No Do you have any weakness?: No Do you have any diarrhea?: No Are you experiencing any unusual bleeding?: No Do you have any muscle aches/pain?: No Do you have any abdominal pain?: No Are you experiencing loss of taste or smell?: No Other Medical History Have you received the Flu Vaccine for this season: No Have you received the Pneumonia Vaccine: No <SAMANTHA Saldana - Last Filed: 04/14/25 20:49> ROS Obtained: Yes All systems reviewed & no additional complaints except as documented Physical Exam <SAMANTHA Saldana - Last Filed: 04/14/25 20:49> General General appearance: alert and in no apparent distress Head Head exam: atraumatic and normocephalic Eye Eye exam: Present PERRL and EOMI ENT ENT exam: Present mucous membranes moist Neck Neck exam: Present normal inspection Chest Chest inspection: Present normal inspection and symmetric chest wall rise Respiratory Respiratory exam: Present normal lung sounds bilaterally; Absent respiratory distress Cardiovascular Cardiovascular exam: Present regular rate and normal rhythm Abdominal Exam Abdominal exam: Present soft; Absent tenderness, guarding or rebound Extremities Exam Extremities exam: Present normal inspection, tenderness and other (There is mild pain limiting range of motion, and mild tenderness palpation over the anterior shoulder/AC joint, as well as some trapezius/subscapular pain to palpation, patient has 5 out of 5 strength in the bilateral lower and upper extremities, negative empty can sign, some difficulty with interna); Absent full ROM Expanded Upper Extremity Exam Left: Shoulder exam: Present tenderness, tenderness over AC joint and other Hand exam: Present other (Heberden's nodes noted on the distal aspect of multiple phalanx) Back Exam Back exam: Present normal inspection; Absent paraspinal tenderness or vertebral tenderness Comment: There is no C-spine T-spine or L-spine paraspinal or spinal tenderness to palpation Neurological Exam Neurological exam: Present alert and oriented X3 Psychiatric Psychiatric exam: Present normal affect Skin Skin exam: Present warm and dry Medical Decision Making <SAMANTHA Saldana - Last Filed: 04/14/25 20:49> Medical Records Medical records reviewed: Yes I reviewed the patient's medical records. Screening: Per USPSTF and CDC recommendations, given the prevalence of disease in our region, it is our hospital?s policy to screen for HIV and viral Hepatitis for all patients aged 18 and over and those with ongoing risk factors. Carlos Inquiry Pt receiving controlled substance: No Carlos was queried for this patient: No Vital Signs: 04/14/25 18:30 04/14/25 18:51 04/14/25 19:00 Temperature 97.9 F Temperature Source Oral Pulse Rate 77 89 Pulse Rate [Right Radial] 78 Respiratory Rate 16 18 Blood Pressure 154/69 H 131/70 Blood Pressure [Right Arm] 183/80 H Blood Pressure Mean 97 Blood Pressure Mean [Right Arm] 114 Blood Pressure Source [Right Arm] Automatic Cuff Blood Pressure Position Blood Pressure Position [Right Arm] Sitting 02 Sat by Pulse Oximetry 98 98 99 Oxygen Delivery Method Room Air 04/14/25 19:30 04/14/25 20:30 04/14/25 21:02 Temperature 98.0 F Temperature Source Oral Pulse Rate 82 Pulse Rate [Right Radial] Respiratory Rate 14 Blood Pressure 131/69 135/74 135/74 Blood Pressure [Right Arm] Blood Pressure Mean 83 95 Blood Pressure Mean [Right Arm] Blood Pressure Source [Right Arm] Blood Pressure Position Supine Blood Pressure Position [Right Arm] 02 Sat by Pulse Oximetry Oxygen Delivery Method Room Air Orders (Tests/Meds): ED MEDICATIONS Discontinued Medications Generic Name Dose Route Start Last Admin Trade Name Freq PRN Reason Stop Dose Admin Acetaminophen 500 mg 04/14/25 19:47 04/14/25 20:01 Acetaminophen 500mg Tab PO 04/14/25 19:48 500 mg ONCE ONE Administration ORDERS Category Date Time Status XR humerus LT Stat Exams 04/14/25 18:41 Completed XR shoulder LT min 2V Stat Exams 04/14/25 18:41 Completed Medical Decision Narrative: 75-year-old female presents to the emergency department with left shoulder pain, see HPI for detail past medical history, differential diagnose include but not limited to, osteoarthritis, acute shoulder impingement syndrome, rotator cuff tendinopathy, shoulder sprain/strain, hardware failure, shoulder fracture among others. I discussed patient case with attending Dr. Brown I think low risk for cardiac pathology as patient has no chest pain no shortness of breath, with a remote fall, and pain with range of motion/pain over the left shoulder joint to palpation. Thus will obtain x-ray of the shoulder and x-ray of the humerus on the left. Patient complaining of some pain, will give 500 mg p.o. Tylenol for pain. I reviewed the patient's left shoulder x-ray, left humerus x-ray along the corresponding radiologic reports, left shoulder arthroplasty, without complication. I discussed the results with the patient and family the bedside, patient family agree with current treatment plan/discharge plan, I did offer blood work/other testing to rule out any other cause of patient's shoulder pain, denied at this time as patient has had recent fall, prior left shoulder arthroplasty more pain with movement on her left shoulder with point tenderness over the AC joint. This was deferred. Shared decision-making was utilized. Recommend rest ibuprofen Tylenol and other anti-inflammatory medication as needed for pain, will give patient sling for comfort, however patient was educated on using sling appropriately, to prevent frozen shoulder, patient will need to follow-up with Ortho provider in the next days/weeks, possible MRI of the shoulder recommended, patient has no other radicular type symptomatology, no neck pain, has good strength in bilateral lower and upper extremities. Patient was given strict ED return precautions. Patient and family voiced understanding and agreement with current treatment plan/discharge plan. <Kenny Brown MD - Last Filed: 04/14/25 21:55> Vital Signs: 04/14/25 18:30 04/14/25 18:51 04/14/25 19:00 Temperature 97.9 F Temperature Source Oral Pulse Rate 77 89 Pulse Rate [Right Radial] 78 Respiratory Rate 16 18 Blood Pressure 154/69 H 131/70 Blood Pressure [Right Arm] 183/80 H Blood Pressure Mean 97 Blood Pressure Mean [Right Arm] 114 Blood Pressure Source [Right Arm] Automatic Cuff Blood Pressure Position Blood Pressure Position [Right Arm] Sitting 02 Sat by Pulse Oximetry 98 98 99 Oxygen Delivery Method Room Air 04/14/25 19:30 04/14/25 20:30 04/14/25 21:02 Temperature 98.0 F Temperature Source Oral Pulse Rate 82 Pulse Rate [Right Radial] Respiratory Rate 14 Blood Pressure 131/69 135/74 135/74 Blood Pressure [Right Arm] Blood Pressure Mean 83 95 Blood Pressure Mean [Right Arm] Blood Pressure Source [Right Arm] Blood Pressure Position Supine Blood Pressure Position [Right Arm] 02 Sat by Pulse Oximetry Oxygen Delivery Method Room Air Orders (Tests/Meds): ED MEDICATIONS Discontinued Medications Generic Name Dose Route Start Last Admin Trade Name [place] PRN Reason Stop Dose Admin Acetaminophen 500 mg 04/14/25 19:47 04/14/25 20:01 Acetaminophen 500mg Tab PO 04/14/25 19:48 500 mg ONCE ONE Administration ORDERS Category Date Time Status XR humerus LT Stat Exams 04/14/25 18:41 Completed XR shoulder LT min 2V Stat Exams 04/14/25 18:41 Completed Medical Decision Narrative: 75-year-old female presents to the emergency department with left shoulder pain, see HPI for detail past medical history, differential diagnose include but not limited to, osteoarthritis, acute shoulder impingement syndrome, rotator cuff tendinopathy, shoulder sprain/strain, hardware failure, shoulder fracture among others. I discussed patient case with attending Dr. Brown I think low risk for cardiac pathology as patient has no chest pain no shortness of breath, with a remote fall, and pain with range of motion/pain over the left shoulder joint to palpation. Thus will obtain x-ray of the shoulder and x-ray of the humerus on the left. Patient complaining of some pain, will give 500 mg p.o. Tylenol for pain. I reviewed the patient's left shoulder x-ray, left humerus x-ray along the corresponding radiologic reports, left shoulder arthroplasty, without complication. I discussed the results with the patient and family the bedside, patient family agree with current treatment plan/discharge plan, I did offer blood work/other testing to rule out any other cause of patient's shoulder pain, denied at this time as patient has had recent fall, prior left shoulder arthroplasty more pain with movement on her left shoulder with point tenderness over the AC joint. This was deferred. Shared decision-making was utilized. Recommend rest ibuprofen Tylenol and other anti-inflammatory medication as needed for pain, will give patient sling for comfort, however patient was educated on using sling appropriately, to prevent frozen shoulder, patient will need to follow-up with Ortho provider in the next days/weeks, possible MRI of the shoulder recommended, patient has no other radicular type symptomatology, no neck pain, has good strength in bilateral lower and upper extremities. Patient was given strict ED return precautions. Patient and family voiced understanding and agreement with current treatment plan/discharge plan. I was consulted by the PA, and we discussed the complexity of the problems being addressed. I approved the treatment and management plan for this patient's care in the Emergency Department, thus performing a substantive portion of the medical decision making. Kenny Brown MD Critical Care <SAMANTHA Saldana - Last Filed: 04/14/25 20:49> Critical Care Time Critical Care Time: No
[2025-04-14 18:51] VITALS: BP 154/69; PULSE 77; RESP 18; O2SAT 98
[2025-04-14 19:00] VITALS: BP 131/70; PULSE 89; O2SAT 99
[2025-04-14 19:30] VITALS: BP 131/69
[2025-04-14] MEDS: ACETAMINOPHEN 500MG TAB 500 MG PO (20:01)
[2025-04-14 20:30] VITALS: BP 135/74
[2025-04-14 21:02] VITALS: BP 135/74; PULSE 82; RESP 14; TEMP 36.7; O2SAT 98
== END 2025-04-14 21:05 | disposition home or self-care (01) ==
PROVIDERS: Emergency Provider Emergency Medicine; PCP Internal Medicine
DX: M25.512 Pain in left shoulder (principal); Z96.612 Presence of left artificial shoulder joint; I10 Essential (primary) hypertension; E78.5 Hyperlipidemia, unspecified; R73.9 Hyperglycemia, unspecified
CPT/HCPCS: 73030; 73060; 99283

== ENCOUNTER 2025-04-30 12:19 | Outpatient (CLI) | payer MEDICARE, SELFPAY ==
--- NOTE | 2025-04-30 15:00 | CT_ITS ---
FINAL REPORT TECHNIQUE: Thin section axial images were obtained of the left shoulder. Coronal and sagittal reconstruction images were obtained and reviewed. This study was performed with techniques to keep radiation doses as low as reasonably achievable, (ALARA). Individualized dose reduction techniques using automated exposure control or adjustment of mA and/or kV according to the patient's size were employed. CLINICAL HISTORY: left shoulder pain COMPARISON: None FINDINGS: Left shoulder total joint prosthesis is present with streak artifact. An osteophyte is noted along the undersurface of the acromion measuring 8 mm. The acromioclavicular joint is intact. IMPRESSION: Total joint prosthesis with extensive streak artifact. Focal osteophyte along the undersurface of the acromion. Reviewed, Interpreted and Dictated by Javon Rushing MD Transcribed by Sadie Tolentino Authenticated and [facility]
== END 2025-04-30 23:59 | disposition home or self-care (01) ==
LOC: RAD 12:20
PROVIDERS: PCP Internal Medicine; Visit Provider Physician Assistant Surgical
DX: M25.712 Osteophyte, left shoulder (principal); R93.6 Abnormal findings on diagnostic imaging of limbs; Z96.612 Presence of left artificial shoulder joint
CPT/HCPCS: 73200

== ENCOUNTER 2025-08-31 21:43 | Emergency (ER) | payer MEDICARE, SELFPAY ==
[2025-08-31 21:45] VITALS: BP 117/75; PULSE 90; RESP 18; TEMP 37.6; O2SAT 98; BMI 28.7
--- NOTE | 2025-08-31 21:57 | XR_ITS ---
PROCEDURE INFORMATION: Exam: XR Chest Exam date and time: 08/31/2025 10:02 PM Age: 75 years old Clinical indication: Cough TECHNIQUE: Imaging protocol: Radiologic exam of the chest. Views: 1 view. COMPARISON: CR XR CHEST PORTABLE 12/21/2024 5:37 PM FINDINGS: Lungs: Left lower lobe calcified granuloma. Pleural spaces: Unremarkable. No pleural effusion. No pneumothorax. Heart/Mediastinum: Unremarkable. No cardiomegaly. Vasculature: Aortic calcification. Bones/joints: Left shoulder arthroplasty. IMPRESSION: No acute findings.
[2025-08-31 22:00] VITALS: BP 125/68; PULSE 83; O2SAT 100
--- NOTE | 2025-08-31 22:00 | HMH.EDGENADL ---
Discharge Plan Disposition Patient Disposition: Home, Self-Care Condition: Good Prescriptions Prescriptions: New ondansetron 4 mg tablet,disintegrating 4 mg PO Q6H PRN (Reason: nausea and vomiting) Qty: 10 0RF No Action memantine 5 mg tablet See Rx Instructions .ROUTE .COMPLEX Qty: 180 1RF Dose Instruction: Take 1 tablet by mouth twice daily Rx Instructions: Take 1 tablet by mouth twice daily lisinopril 40 mg tablet 40 mg PO DAILY Qty: 90 1RF promethazine 12.5 mg tablet See Rx Instructions .ROUTE .COMPLEX Qty: 20 1RF Dose Instruction: TAKE 1/2 TO 1 (ONE-HALF TO ONE) TABLET BY MOUTH EVERY 6 HOURS NEEDED FOR NAUSEA AND VOMITING Rx Instructions: TAKE 1/2 TO 1 (ONE-HALF TO ONE) TABLET BY MOUTH EVERY 6 HOURS NEEDED FOR NAUSEA AND VOMITING glimepiride 1 mg tablet See Rx Instructions .ROUTE .COMPLEX Qty: 90 1RF Dose Instruction: TAKE 1 TABLET BY MOUTH IN THE MORNING Rx Instructions: TAKE 1 TABLET BY MOUTH IN THE MORNING lovastatin 40 mg tablet See Rx Instructions .ROUTE .COMPLEX Qty: 90 1RF Dose Instruction: Take 1 tablet by mouth once daily Rx Instructions: Take 1 tablet by mouth once daily meloxicam 7.5 mg tablet 7.5 mg PO DAILY Qty: 30 2RF Januvia 100 mg tablet 100 mg PO DAILY Qty: 90 1RF Referrals Follow up/Referrals: Jefe Ruiz MD [Primary Care Provider, Medical] - See instructions Activity Restrictions/Add. Instructions Additional Instructions/Restrictions: At this time it was felt you are safe to be discharged home. If new or worsening symptoms please do not hesitate to return the emergency department. Please apply the eyedrops that were provided to you (neomycin/polymyxin B/gramicidin) 2 drops in the affected eye every 4 hours for 7 days. Take the prescribed Zofran (ondansetron) as directed if needed for nausea and vomiting. Do not take this with promethazine (Phenergan) if you still have any of that medication at home. Please follow-up with your family doctor early this coming week to make sure things are headed in the right direction. Return to the ER with any new, worsening, or otherwise concerning symptoms. Clinical Impressions Clinical Impression: Acute bacterial conjunctivitis Print Language Print Language: Georgian Discharge ED Provider: Quoc Oviedo General Adult HPI <Quoc Oviedo MD - Last Filed: 08/31/25 23:25> General Chief complaint: Upper Respiratory Infection Stated complaint: fever,vomiting,left eye is swollen and red Time Seen by Provider: 08/31/25 21:47 Mode of Arrival: Ambulatory Source of Information: Patient Description of Symptoms (Recalled from ER Triage Doc. by RN): elijah presents for right eye drainage, fever, cough, vomiting, diarrhea all since . she is just overall not feeling well. History of Present Illness HPI narrative: Patient is 75-year-old female with past medical history of [id number] diabetes, hypertension who presents emergency department for evaluation of respiratory infection symptoms and red eye. Patient has had right eye with drainage over the last 24 hours. She has also had nausea, vomiting, diarrhea that is nonbloody since . No chest pain or abdominal pain. Intermittent dysuria. No other acute complaints at this time. Does not wear contacts. Please note that above description of symptoms, in this electronic medical record under categorization of recalled from ER triage doctor by RN are reflective of an initial nursing assessment, however, is not reflective of my full history and physical exam that was personally taken and clarified. Consequentially, this preceding description of symptoms, which may include the patient's categorized chief complaint in the EMR, do not reflect my personal clinical impression, and the ultimate description of history of present illness and patient stated complaints should be deferred to this section of the note. Unless stated otherwise or congruent with this section of the note, additional signs, symptoms, or incongruence should be interpreted as inaccurate with my clinical impression. Related Data Previous Rx's ?Medication ?Instructions ?Recorded memantine 5 mg tablet See Rx Instructions .Route 10/09/24 .COMPLEX #180 tabs lisinopril 40 mg tablet 40 mg PO DAILY High blood pressure 02/22/25 #90 tabs promethazine 12.5 mg tablet See Rx Instructions .Route 04/01/25 .COMPLEX #20 tabs glimepiride 1 mg tablet See Rx Instructions .Route 07/05/25 .COMPLEX #90 tabs lovastatin 40 mg tablet See Rx Instructions .Route 07/05/25 .COMPLEX #90 tabs meloxicam 7.5 mg tablet 7.5 mg PO DAILY #30 tabs 07/16/25 sitagliptin phosphate 100 mg 100 mg PO DAILY #90 tabs 08/09/25 tablet (Januvia) ondansetron 4 mg disintegrating 4 mg PO Q6H PRN nausea and 09/01/25 tablet vomiting #10 tabs Allergies Allergy/AdvReac Type Severity Reaction Status Date / Time ciprofloxacin (CIPROFLOXACIN) Allergy Mild Unknown Verified 04/22/25 16:10 allergy reaction PFS <Quoc Oviedo MD - Last Filed: 08/31/25 23:25> [facility] Disclaimer: The information contained in this section may have been updated after the patient was seen, as this information can be updated by other users. Medical History Viral upper respiratory infection Severe sleep apnea Return to CPAP, refuses treatment. B12 deficiency B12 borderline in July, homocystine elevated. Recommend further evaluation and if remains abnormal, parental replacement given neurological symptoms. Memory loss Encephalopathy Closed fracture of right hip Diabetes mellitus Hypertension Rotator cuff tear arthropathy of left shoulder Hyperlipidemia Surgical History Status post reverse total replacement of left shoulder Family History Other Cancer Stroke Social History Smoking Status: Never smoker alcohol intake: never counseling provided: provider counseling substance use type: denies use current occupational status: unemployed and other Travel in the last 8 weeks?: None household members: family housing: house caffeine: Yes Have you lived/traveled outside [place] in past 30 days?: No Contact w/someone who lives/traveled outside US past 30 days?: No Exposure to someone with infectious disease in past 14 days?: No Do you have a fever (greater than 100.4 F or 38 C)?: No Have you tested positive for COVID-19?: No Exposed to someone with COVID-19 in past 14 days?: No Do you have a sore throat?: No Do you have a cough?: No Do you have any weakness?: No Do you have any diarrhea?: No Are you experiencing any unusual bleeding?: No Do you have any muscle aches/pain?: No Do you have any abdominal pain?: No Are you experiencing loss of taste or smell?: No Other Medical History Have you received the Flu Vaccine for this season: No Have you received the Pneumonia Vaccine: No <Quoc Oviedo MD - Last Filed: 08/31/25 23:25> ROS Obtained: Yes Systems reviewed as appropriate & no additional complaints except as documented Physical Exam <Quoc Oviedo MD - Last Filed: 08/31/25 23:25> General General appearance: alert and in no apparent distress Head Head exam: atraumatic and normocephalic Eye Eye exam: Present PERRL, EOMI, conjunctival redness (Purulent exudate right eye) and periorbital swelling (Mild, no significant periorbital erythema no pain with extraocular movements) ENT ENT exam: Present mucous membranes moist Neck Neck exam: Present normal inspection Chest Chest inspection: Present normal inspection and symmetric chest wall rise Respiratory Respiratory exam: Present normal lung sounds bilaterally; Absent respiratory distress Cardiovascular Cardiovascular exam: Present regular rate and normal rhythm Abdominal Exam Abdominal exam: Present soft; Absent tenderness Extremities Exam Extremities exam: Present normal inspection Neurological Exam Neurological exam: Present alert and CN II-XII intact Psychiatric Psychiatric exam: Present normal affect Skin Skin exam: Present warm and dry Medical Decision Making <Quoc Oviedo MD - Last Filed: 08/31/25 23:25> Medical Records Screening: Per USPSTF and CDC recommendations, given the prevalence of disease in our region, it is our hospital?s policy to screen for HIV and viral Hepatitis for all patients aged 18 and over and those with ongoing risk factors. Carlos Inquiry Pt receiving controlled substance: No Vital Signs: 08/31/25 21:45 08/31/25 22:00 09/01/25 01:48 EDT Temperature 99.6 F 98.8 F Temperature Source Oral Pulse Rate 83 71 Pulse Rate [Right Radial] 90 Respiratory Rate 18 18 Blood Pressure 125/68 135/78 Blood Pressure [Right Arm] 117/75 Blood Pressure Mean 90 Blood Pressure Mean [Right Arm] 89 Blood Pressure Source [Right Arm] Automatic Cuff Blood Pressure Position [Right Arm] Sitting 02 Sat by Pulse Oximetry 98 100 Oxygen Delivery Method Room Air Room Air Lab Data Lab Results 08/31/25 21:52: SARS-CoV-2 (PCR) Not detected, Influenza A Untype (PCR) Not detected, Influenza Type B (PCR) Not detected 08/31/25 22:31: WBC 11.0 H, RBC 3.92 L, Hgb 12.2, Hct 36.4 L, MCV 92.9, MCH 31.1, MCHC 33.5, RDW 12.3, Plt Count 189, MPV 10.3, Neut % (Auto) 73.1, Lymph % (Auto) 16.8, [place] % (Auto) 8.8, Eos % (Auto) 0.5, Baso % (Auto) 0.4, Neut # (Auto) 8.0 H, Lymph # (Auto) 1.8, [place] # (Auto) 1.0, Eos # (Auto) 0.1, Baso # (Auto) 0.0, Sodium 131 L, Potassium 4.2, Chloride 97 L, Carbon Dioxide 26, Anion Gap 12.2, BUN 16, Creatinine 0.80, Estimated Creat Clear 55, Estimated GFR 70, Est GFR ( Amer) 85, Glucose 165 H, Calcium 9.3, Magnesium 1.7, Total Bilirubin 1.6 H, AST 31, ALT 19, Alkaline Phosphatase 114, Total Protein 8.1, Albumin 3.9, Globulin 4.2 H, Albumin/Globulin Ratio 0.9 L, Lipase 51 08/31/25 22:31 08/31/25 22:31 Orders (Tests/Meds): ED MEDICATIONS Discontinued Medications Generic Name Dose Route Start Last Admin Trade Name Garyq PRN Reason Stop Dose Admin Lactated Ringer's 1,000 mls @ 999 mls/hr 08/31/25 21:57 09/01/25 01:29 EDT Lactated Ringer's 1000 Ml Bag IV 08/31/25 22:57 Infused .Q1H1M ONE Infusion Neomycin/Polymyxin/Gramicidin 0.5 ml 08/31/25 22:04 08/31/25 23:06 Pvfgzgdu-Lfdrlp-Pmxl Ophth Soln 10ml Bottle OP 08/31/25 22:05 0.5 ml ONCE ONE Administration Ondansetron HCl 4 mg 08/31/25 21:57 08/31/25 23:05 Ondansetron 4mg/2ml Vial IV 08/31/25 21:58 4 mg ONCE ONE Administration ORDERS Category Date Time Status CXR --portable [XR chest portable] Stat Exams 08/31/25 21:57 Completed CBC w/Auto Diff [Complete Blood Count Auto Diff] Stat Lab 08/31/25 22:31 Completed CMP [Comprehensive Metabolic Panel] Stat Lab 08/31/25 22:31 Completed Full Resp Panel w/COVID ([facility]) Routine Lab 09/01/25 01:44 Ordered Lipase Stat Lab 08/31/25 22:31 Completed MG [Magnesium] Stat Lab 08/31/25 22:31 Completed Rapid PCR Covid and Flu A/B Stat Lab 08/31/25 21:52 Completed UA [Urinalysis and Microscopic] Stat Lab 08/31/25 01:02 Received Medical Decision Narrative: In summary patient is a 75-year-old female past medical history of scrota above presents emergency department for evaluation of upper respiratory symptoms, cough, right eye redness with discharge. Patient is hemodynamically stable nontoxic-appearing arrival, afebrile. I suspect the patient has nonspecific viral syndrome with vomiting and diarrhea with concomitant bacterial conjunctivitis in the setting of not wearing corrective vision. Polymyxin gramcidin neomycin drops will be added to the right eye. Patient does not have any abdominal tenderness no chest pain or abdominal pain reported given this workup will be conducted with hematologic labs, chest x-ray, viral swab, urinalysis. I suspect that the mild periorbital edema without significant erythema is not reflective of periorbital cellulitis rather is just irritation in the setting of frequent eye rubbing with bacterial conjunctivitis. Hematologic labs urinalysis repeat evaluation pending at time of transfer of care to the oncoming physician, Dr. Palomino. Procedure: Procedure performed was tonometry. Procedure performed by Quoc Oviedo. Dean-Pen was used for the right eye, intraocular pressure is 19. Patient tolerated the procedure well. <Mary Jo Palomino MD - Last Filed: 09/01/25 01:07 EST> Vital Signs: 08/31/25 21:45 08/31/25 22:00 09/01/25 01:48 EDT Temperature 99.6 F 98.8 F Temperature Source Oral Pulse Rate 83 71 Pulse Rate [Right Radial] 90 Respiratory Rate 18 18 Blood Pressure 125/68 135/78 Blood Pressure [Right Arm] 117/75 Blood Pressure Mean 90 Blood Pressure Mean [Right Arm] 89 Blood Pressure Source [Right Arm] Automatic Cuff Blood Pressure Position [Right Arm] Sitting 02 Sat by Pulse Oximetry 98 100 Oxygen Delivery Method Room Air Room Air Lab Data Lab Results 08/31/25 21:52: SARS-CoV-2 (PCR) Not detected, Influenza A Untype (PCR) Not detected, Influenza Type B (PCR) Not detected 08/31/25 22:31: WBC 11.0 H, RBC 3.92 L, Hgb 12.2, Hct 36.4 L, MCV 92.9, MCH 31.1, MCHC 33.5, RDW 12.3, Plt Count 189, MPV 10.3, Neut % (Auto) 73.1, Lymph % (Auto) 16.8, [place] % (Auto) 8.8, Eos % (Auto) 0.5, Baso % (Auto) 0.4, Neut # (Auto) 8.0 H, Lymph # (Auto) 1.8, [place] # (Auto) 1.0, Eos # (Auto) 0.1, Baso # (Auto) 0.0, Sodium 131 L, Potassium 4.2, Chloride 97 L, Carbon Dioxide 26, Anion Gap 12.2, BUN 16, Creatinine 0.80, Estimated Creat Clear 55, Estimated GFR 70, Est GFR ( Amer) 85, Glucose 165 H, Calcium 9.3, Magnesium 1.7, Total Bilirubin 1.6 H, AST 31, ALT 19, Alkaline Phosphatase 114, Total Protein 8.1, Albumin 3.9, Globulin 4.2 H, Albumin/Globulin Ratio 0.9 L, Lipase 51 Orders (Tests/Meds): ED MEDICATIONS Discontinued Medications Generic Name Dose Route Start Last Admin Trade Name Freq PRN Reason Stop Dose Admin Lactated Ringer's 1,000 mls @ 999 mls/hr 08/31/25 21:57 09/01/25 01:29 EDT Lactated Ringer's 1000 Ml Bag IV 08/31/25 22:57 Infused .Q1H1M ONE Infusion Neomycin/Polymyxin/Gramicidin 0.5 ml 08/31/25 22:04 08/31/25 23:06 Dxniuhzg-Fxjkmb-Pvsc Ophth Soln 10ml Bottle OP 08/31/25 22:05 0.5 ml ONCE ONE Administration Ondansetron HCl 4 mg 08/31/25 21:57 08/31/25 23:05 Ondansetron 4mg/2ml Vial IV 08/31/25 21:58 4 mg ONCE ONE Administration ORDERS Category Date Time Status CXR --portable [XR chest portable] Stat Exams 08/31/25 21:57 Completed CBC w/Auto Diff [Complete Blood Count Auto Diff] Stat Lab 08/31/25 22:31 Completed CMP [Comprehensive Metabolic Panel] Stat Lab 08/31/25 22:31 Completed Full Resp Panel w/COVID ([facility]) Routine Lab 09/01/25 01:44 Ordered Lipase Stat Lab 08/31/25 22:31 Completed MG [Magnesium] Stat Lab 08/31/25 22:31 Completed Rapid PCR Covid and Flu A/B Stat Lab 08/31/25 21:52 Completed UA [Urinalysis and Microscopic] Stat Lab 08/31/25 01:02 Received Medical Decision Narrative: In summary patient is a 75-year-old female past medical history of scrota above presents emergency department for evaluation of upper respiratory symptoms, cough, right eye redness with discharge. Patient is hemodynamically stable nontoxic-appearing arrival, afebrile. I suspect the patient has nonspecific viral syndrome with vomiting and diarrhea with concomitant bacterial conjunctivitis in the setting of not wearing corrective vision. Polymyxin gramcidin neomycin drops will be added to the right eye. Patient does not have any abdominal tenderness no chest pain or abdominal pain reported given this workup will be conducted with hematologic labs, chest x-ray, viral swab, urinalysis. I suspect that the mild periorbital edema without significant erythema is not reflective of periorbital cellulitis rather is just irritation in the setting of frequent eye rubbing with bacterial conjunctivitis. Hematologic labs urinalysis repeat evaluation pending at time of transfer of care to the oncoming physician, Dr. Palomino. Procedure: Procedure performed was tonometry. Procedure performed by Quoc Oviedo. Dean-Pen was used for the right eye, intraocular pressure is 19. Patient tolerated the procedure well. Palomino: Upon my assumption of care patient is stable and resting comfortably. I agree with the assessment and plan from Dr. Oviedo. I agree that there is no evidence of periorbital cellulitis at this time. Labs reviewed demonstrate mild leukocytosis but no anemia, CMP nonactionable COVID and flu negative, full respiratory panel pending. Urinalysis was collected but unfortunately the lab analyzer is down. Patient is stable and well-appearing at this time as I believe she is appropriate for discharge. I explained to the patient and family at bedside that I will call if there are any results of the urinalysis that would require treatment but at this time I am comfortable discharging her without those results. They are agreeable to this. I prescribed Zofran for outpatient management of nausea. Patient has polymyxin combination eyedrops provided by Dr. Oviedo and instructions for use of these. Patient was given instructions on symptomatic management, follow up instructions, and return precautions for the emergency department. Patient indicated understanding and was discharged in stable condition. Critical Care <Quoc Oviedo MD - Last Filed: 08/31/25 23:25> Critical Care Time Critical Care Time: No
[2025-08-31 22:19] LABS: Coronavirus 19, PCR Not Detected (NotDetected); Influenza A, PCR Not Detected (NotDetected); Influenza B, PCR Not Detected (NotDetected)
[2025-08-31 22:46] LABS: Hematocrit 36.4 % (37.0-47.0); Hemoglobin 12.2 g/dL (12.2-16.2); Immature Granulocytes % 0.4 %; Mean Corpuscular HGB Conc 33.5 g/dL (31.8-35.4); Mean Corpuscular Hemoglobin 31.1 pg (27.0-31.2); Mean Corpuscular Volume 92.9 fl (81-99); Nucleated Red Blood Cells % 0 %; Platelet Count 189 K/mm3 (142-424); Red Blood Count 3.92 M/mm3 (4.20-5.40); Red Cell Distribution Width-SD 41.6 fL; White Blood Count 11.0 K/mm3 (4.8-10.8)
[2025-08-31 23:02] LABS: Alanine Aminotransferase 19 U/L (12-78); Albumin Level 3.9 g/dl (3.5-5.0); Albumin/Globulin Ratio 0.9 (1.1-1.8); Alkaline Phosphatase 114 U/L (38-126); Anion Gap 12.2 mEq/L (5-15); Aspartate Amino Transferase 31 U/L (14-36); Bilirubin,Total 1.6 mg/dl (0.2-1.3); Blood Urea Nitrogen 16 mg/dl (7-17); Calcium 9.3 mg/dl (8.4-10.2); Carbon Dioxide 26 mmol/L (22.0-30.0); Chloride 97 mmol/L (98-107); Creatinine Clearance Estimated 55 mL/min (50-200); Creatinine,Serum 0.80 mg/dl (0.52-1.04); Estimated Glomerular Filt Rate 70 ml/min (>60); GFR (African American) 85 ML/MIN (>60); Globulin 4.2 g/dL (1.3-3.2); Glucose 165 mg/dl (74-100); Lipase 51 U/L (23-300); Magnesium 1.7 mg/dl (1.6-2.3); Potassium 4.2 mmoL/L (3.5-5.1); Sodium 131 mmol/L (136-145); Total Protein,Serum 8.1 g/dl (6.3-8.2)
[2025-08-31] MEDS: LACTATED RINGERS 1000ML 1,000 ML 999 ML IV (23:04)
[2025-08-31] MEDS: ONDANSETRON 4MG/2ML VIAL 4 MG IV (23:05)
[2025-08-31] MEDS: NEOMYCIN-POLYMY-GRAM OPHTH SOLN 10ML BOTTLE OP (23:06)
[2025-09-01 01:16] LABS: Microscopic, Urine URINE MICROSCOPIC (MICROSCOPIC)
[2025-09-01 01:44] LABS: Bacteria,Urine 1+ /lpf
[2025-09-01 01:48] VITALS: BP 135/78; PULSE 71; RESP 18; TEMP 37.1; O2SAT 98
[2025-09-01 01:50] LABS: Bilirubin,Urine Negative (Negative); Color,Urine YELLOW (Yellow); Glucose,Urine (UA) Negative (Negative); Ketones,Urine TRACE (Negative); Leukocyte Esterase,Urine 2+ (Negative); PH,Urine 6.0 (5.0-8.5); Protein,Urine 1+ (Negative); Specific Gravity, Urine 1.025 (1.005-1.030); Urobilinogen,Urine 0.2 EU/dl (0.2)
== END 2025-09-01 01:56 | disposition home or self-care (01) ==
PROVIDERS: Emergency Provider Emergency Medicine; PCP Internal Medicine
DX: R11.2 Nausea with vomiting, unspecified (principal); R50.9 Fever, unspecified; H10.31 Unspecified acute conjunctivitis, right eye; E87.1 Hypo-osmolality and hyponatremia
CPT/HCPCS: 71045; 80053; 81001; 83690; 83735; 85025; 87086; 87636; 96361; 96374; 99284; J2405; J7120

== ENCOUNTER 2025-09-10 09:52 | Outpatient (CLI) | payer MEDICARE, SELFPAY ==
[2025-09-10 21:28] LABS: Clostridium Difficile A/B, PCR Not Detected (NotDetected); Cyclospora Cayetanesis Not Detected (NotDetected); Salmonella, PCR Not Detected (NotDetected); Shiga-like toxin E coli Not Detected (NotDetected); Shigella Enterovasive E coli Not Detected (NotDetected); Vibrio, PCR Not Detected (NotDetected); Yersinia Entercolitica, PCR Not Detected (NotDetected)
== END 2025-09-10 23:59 ==
LOC: LAB.DROPOF 09-12 09:52
PROVIDERS: PCP Internal Medicine; Visit Provider Internal Medicine
DX: R19.7 Diarrhea, unspecified (principal); B34.9 Viral infection, unspecified; H10.30 Unspecified acute conjunctivitis, unspecified eye; J20.9 Acute bronchitis, unspecified
CPT/HCPCS: 87506